=== PATIENT | male | born 1950 | race Caucasian/White ===

== ENCOUNTER 2024-02-09 16:05 | Emergency (ER) | payer MEDICARE, OTHER, SELFPAY ==
[2024-02-09 16:14] VITALS: BP 125/80
--- NOTE | 2024-02-09 17:37 | ED.GENMED ---
History of Present Illness
General
Chief Complaint: Fall
Time Seen by Provider: 02/09/24 17:32
Travel History
Have you had any contact with someone who has COVID-19?: No
Do you have any symptoms of coronavirus? Fever > 100 degrees, chills, cough, shortness of breath, sore throat, loss of taste or smell, muscle aches, or headache?: No
History of Present Illness
History of Present Illness:
73-year-old male with history of A-fib and frequent falls presents to the emergency department for evaluation of a left-sided head injury after mechanical fall. He states he tripped and fell, struck his head against a dresser., Does take baby
aspirin, no anticoagulants. He denies any loss of conscious, vision changes, neck pain, or extremity paresthesias. There is a small laceration to the left parietal scalp that is not actively bleeding
Past History
Past History
ED Past Medical History: Arrthythmia (Atrial fibrillation on low-dose aspirin), CAD, Cancer (Prostate), Hypercholesterolemia, [place], Hypothyroidism, Psychiatric (Anxiety, Depression), Other (Hepatitis C, Colitis, Crohns) and Other (Cardiomyopathy, PE)
ED Past Surgical History: Appendectomy, Urological (prostatectomy) and Other (Vocal cord repair)
Social History
Tobacco: Former smoker
Alcohol: None
Drug: Former user
Personal:
Living: with family
Employment: Retired
Review of Systems
Review of Systems
Allergies reviewed?: Yes
All Other Systems: ROS reviewed and negative except as documented in HPI and ROS
Phy Exam
Physical Exam
Physical Exam:
GEN: Well appearing, NAD, WDWN
HEENT: Subcentimeter superficial laceration to left parietal scalp with no active bleeding, oral mucosa moist, no scleral icterus, no nasal congestion
Cardiac: Regular rate
Lung: No respiratory distress, no tachypnea
MSK: No gross deformity or injuries
Skin: Good color, no pallor or jaundice, no rashes
Neuro: AO x3; CN II-XII grossly intact. BUE strength 5/5 in all [place], sensation intact and symmetric. BLE strength 5/5 in all [place], sensation intact and symmetric
Psych: Calm, cooperative
Course
Orders/Labs/Results
Orders:
Orders
02/09/24 17:34
CT Head W/o Iv Contrast Urgent
Comment:
Reason For Exam: fall, head injury
Vital Signs
Initial and Last Documented VS:
Initial Vital Signs
Temp Pulse Resp BP Pulse Ox
98.9 F 85 14 125/80 96
02/09/24 16:14 02/09/24 16:14 02/09/24 16:14 02/09/24 16:14 02/09/24 16:14
Last Documented Vital Signs
Temp Pulse Resp BP Pulse Ox
98.9 F 58 14 133/82 96
02/09/24 16:14 02/09/24 19:13 02/09/24 16:14 02/09/24 19:13 02/09/24 16:14
MDM/Problems Addressed
MDM/Problems Addressed:
73-year-old male presents after a minor head injury. He does have a history of frequent falls. Scalp wound is quite small and does not require primary closure. CT of the head shows no acute intracranial process.
*Critical Care Note
Total Time (30-74mins, 75-104mins- exclusive of procedures): Not Applicable
ED Attending Note
-
Portions of this chart may have been created with voice recognition software.� Occasional wrong word or��sound alike� substitutions may have occurred due to the inherent limitations of voice recognition software.
Discharge Plan
Departure
Patient Disposition: Home (Routine Discharge)
Date of Disposition: 02/09/24
Time of Disposition: 19:10
Patient with high blood pressure during this ER visit?: No
Discharge Problem:
Laceration of scalp
Instructions: Head Injury in Adults (DC)
Prescriptions:
No Action
atorvastatin 20 MG tablet
20 mg PO DAILY Qty: 0
acetaminophen 325 MG tablet
650 mg PO Q4HPRN PRN (Reason: pain/PEREZ/fever >100.4 ) Qty: 1 0RF
Rx Instructions:
Do not exceed >4000 mg daily
carvedilol 6.25 MG tablet
6.25 mg PO BID
levothyroxine 88 MCG tablet
88 mcg PO DAILY
fluoxetine 40 MG capsule
80 mg PO DAILY
sulfasalazine 500 MG tablet
1,000 mg PO BID
olanzapine 10 MG tablet
10 mg PO HS
aspirin 81 MG tablet,delayed release (DR/EC)
81 mg PO DAILY
loratadine 10 MG tablet
10 mg PO DAILYPRN PRN (Reason: ALLERGIES)
bupropion HCl 150 MG tablet extended release 24 hr
450 mg PO DAILY
Meticam
15 mg PO DAILY
amoxicillin-pot clavulanate 875-125 mg tablet
1 tab PO BID Qty: 14 0RF
azithromycin 250 mg tablet
250 mg PO DAILY 4 Days Qty: 4 0RF
Referrals:
Josee Barnett MD [Family Provider] -
Interventions
Interventions:
*Risk Screen - Suicide Last Done: 02/09/24 16:13
*General Assessment Last Done: 02/09/24 16:13
*Neglect/Abuse Screening Last Done: 02/09/24 16:13
*Nursing Disposition Last Done: 02/09/24 19:13
ED-Musculoskeletal Assessment Last Done: 02/09/24 16:49
ED- Neurological Assessment Last Done: 02/09/24 16:49
ED-Skin Assessment Last Done: 02/09/24 16:49
Discharge Date and Time
Discharge Date/Time: 02/09/24 19:22
Print Language: DANISH
[2024-02-09 18:59] VITALS: BP 133/82
[2024-02-09 19:13] VITALS: BP 133/82
== END 2024-02-09 19:22 | disposition home or self-care (01) ==
LOC: EMR 16:05
PROVIDERS: EMERGENCY PHYSICIAN Emergency Medicine; FAMILY PHYSICIAN Family Medicine
DX: S01.01XA Laceration without foreign body of scalp, initial encounter (principal); W01.190A Fall on same level from slipping, tripping and stumbling with subsequent striking against furniture, initial encounter; I48.91 Unspecified atrial fibrillation; I25.10 Atherosclerotic heart disease of native coronary artery without angina pectoris; E78.00 Pure hypercholesterolemia, unspecified; E03.9 Hypothyroidism, unspecified; F41.9 Anxiety disorder, unspecified; F32.A Depression, unspecified; K52.9 Noninfective gastroenteritis and colitis, unspecified; K50.90 Crohn's disease, unspecified, without complications; I42.9 Cardiomyopathy, unspecified; I25.2 Old myocardial infarction; Z85.9 Personal history of malignant neoplasm, unspecified; Z86.711 Personal history of pulmonary embolism; Z86.19 Personal history of other infectious and parasitic diseases; Z87.891 Personal history of nicotine dependence; R29.6 Repeated falls; Z90.79 Acquired absence of other genital organ(s)
CPT/HCPCS: 99284; 70450

== ENCOUNTER 2024-04-19 15:13 | Outpatient (RCR) | payer MEDICARE, OTHER, SELFPAY | END 2024-04-19 23:59 | disposition home or self-care (01) | LOC: RST 15:13 | PROVIDERS: ATTENDING PHYSICIAN Otolaryngology; FAMILY PHYSICIAN Family Medicine | DX: R49.0 Dysphonia (principal); R13.10 Dysphagia, unspecified | CPT/HCPCS: 92507; 92524 ==

== ENCOUNTER 2024-05-26 15:44 | Outpatient (RCR) | payer MEDICARE, OTHER, SELFPAY | END 2024-05-26 23:59 | disposition home or self-care (01) | LOC: RST 15:44 | PROVIDERS: ATTENDING PHYSICIAN Otolaryngology; FAMILY PHYSICIAN Family Medicine | DX: R49.0 Dysphonia (principal); R13.10 Dysphagia, unspecified | CPT/HCPCS: 92507 ==

== ENCOUNTER 2024-06-09 13:47 | Outpatient (RCR) | payer MEDICARE, OTHER, SELFPAY | END 2024-06-09 16:08 | disposition home or self-care (01) | LOC: RST 13:47 | PROVIDERS: ATTENDING PHYSICIAN Otolaryngology; FAMILY PHYSICIAN Family Medicine | DX: R49.0 Dysphonia (principal); R13.10 Dysphagia, unspecified | CPT/HCPCS: 92507 ==

== ENCOUNTER 2024-06-20 12:31 | Inpatient (IN) | payer MEDICARE, OTHER, SELFPAY ==
[2024-06-20] VITALS (39 sets, daily range): BP systolic 80–131; BP diastolic 50–107; BMI 19.5; BMI 20.6
[2024-06-20] MEDS: TYLENOL 1000 MG PO (08:20)
--- NOTE | 2024-06-20 08:23 | ED.MUSCINJ ---
HPI-Injury
General
Chief Complaint: Fall
Source: patient
Exam Limitations: none
Time Seen by Provider: 06/20/24 08:02
History of Present Illness-Injury
Initial Injury comments:
73-year-old male presents via EMS from home with generalized weakness and a fall. He was found to be incontinent by EMS. Patient denies any significant pain or injury from the fall but he was noted to hit the side of his head. He is not
anticoagulated. No known loss of consciousness. He denies chest pain cough or shortness of breath. He does have history of COPD. No recent nausea or vomiting. No other complaints at this time
Past History
Past History
ED Past Medical History: Arrthythmia (Atrial fibrillation on low-dose aspirin), CAD, Cancer (Prostate), Hypercholesterolemia, [place], Hypothyroidism, Psychiatric (Anxiety, Depression), Other (Hepatitis C, Colitis, Crohns) and Other (Cardiomyopathy, PE)
ED Past Surgical History: Appendectomy, Urological (prostatectomy) and Other (Vocal cord repair)
Social History
Tobacco: Former smoker
Alcohol: None
Drug: Former user
Personal:
Living: with family
Employment: Retired
Phy Exam
Physical Exam
Physical Exam:
General: Unkempt male no acute respiratory distress
HEENT: Normocephalic abrasions that are superficial to the right side of the scalp. Pupils equal round react light small superficial laceration to the outer ear on the right ear.
Heart: Regular rate and rhythm
Lungs: Clear no obvious wheeze
Abdomen is soft nontender nondistended no guarding rebound
Extremities: No cyanosis or edema
Neurologic alert and oriented no facial asymmetry no drift to the upper extremities
Musculoskeletal exam: The spine is nontender
Injury Course
Orders/Labs/Results
Orders:
Orders
06/20/24 08:05
Acetaminophen [Tylenol] 1,000 mg .ROUTE .STK-MED ONE
06/20/24 08:11
0.9% Sodium Chloride 1000 ml [Nss] 1,000 ml IV BOLUS
06/20/24 08:12
CR Chest - 2 Views Urgent
Comment:
Reason For Exam: fever
06/20/24 08:16
Lactic Acid Urgent
06/20/24 08:17
Complete Blood Count/With Diff Urgent
Comprehensive Metabolic Panel Urgent
Lactic Acid Urgent
Urinalysis Reflex To Culture Urgent
Date Specimen was Collected: 06/20/24
Time Specimen was Collected: 08:15
Urine Microscopic Reflex Cult Urgent
Urine Culture Urgent
RADHAMES Source: U
Specimen Description:
Date Specimen was Collected: 06/20/24
Time Specimen was Collected: 08:15
06/20/24 08:19
CT Head W/o Iv Contrast Urgent
Comment:
Reason For Exam: fall
Acetaminophen [Tylenol] 1,000 mg PO NOW STA
06/20/24 08:25
COVID-19 Antigen Urgent
Source: Nasal Swab
Blood Culture Urgent
RADHAMES Source: Blood/Venous
Specimen Description:
06/20/24 09:37
CefTRIAXone [Rocephin] 1,000 mg IV NOW STA
Abnormal Lab Results
06/20/24
08:17
WBC 3.9 L 10^3/uL
(4.8-10.8)
RDW 15.0 H %
(11.5-14.5)
Plt Count 104 L 10^3/uL
(130-400)
Absolute Lymphs (auto) 0.1 L 10^3/uL
(1.2-3.4)
Absolute Monos (auto) 0.0 L 10^3/uL
(0.1-0.6)
Immature Gran % 1.0 H %
(0-0.5)
Neutrophils % 94.4 H %
(42.2-75.2)
Lymphocytes % 3.1 L %
(20.5-51.1)
Monocytes % 1.0 L %
(1.7-9.3)
Sodium 134 L mmol/L
(135-145)
BUN 23 H mg/dl
(9-20)
Glucose 119 H mg/dl
(70-99)
Lactic Acid 2.6 H mmol/L
(0.7-2.0)
AST 66 H U/L
(17-59)
Ur Occult Blood Reflex 2+ A
(Negative)
Leukocyte Esterase Rfl 2+ A
(Negative)
Urine WBC (Reflex) 26-30 A /HPF
(0-5)
Urine Bacteria (Reflex) Moderate A
(Negative)
06/20/24 08:17
06/20/24 08:17
MDM/Problems Addressed
Differential Diagnosis Includes:
Weakness with a fall. Patient found to be febrile here. Question UTI versus COVID versus pneumonia versus electrolyte abnormality. He does appear dry on exam.
Check labs urine culture chest x-ray COVID test CT head secondary to trauma
*Critical Care Note
Total Time (30-74mins, 75-104mins- exclusive of procedures): Not Applicable
Update Note
Update Note:
Workup reveals negative head CT chest x-ray is clear per urine with large white blood cells with bacteria and leukocytes. Suspect UTI. Patient was weak to the point where he fell. Lactic acid is 2.6. Patient was hydrated here with IV fluids
given Tylenol and Rocephin. Will admit to hospital
ED Attending Note
-
Portions of this chart may have been created with voice recognition software.� Occasional wrong word or��sound alike� substitutions may have occurred due to the inherent limitations of voice recognition software.
Discharge Plan
Departure
Patient Disposition: Admit
Date of Disposition: 06/20/24
Time of Disposition: 09:41
Presentation/result/management discussed w/ accepting MD/DO: Hospitalist
Patient with high blood pressure during this ER visit?: No
Discharge Problem:
Fever, Acute UTI
Prescriptions:
No Action
atorvastatin 20 MG tablet
20 mg PO DAILY Qty: 0
acetaminophen 325 MG tablet
650 mg PO Q4HPRN PRN (Reason: pain/PEREZ/fever >100.4 ) Qty: 1 0RF
Rx Instructions:
Do not exceed >4000 mg daily
carvedilol 6.25 MG tablet
6.25 mg PO BID
levothyroxine 88 MCG tablet
88 mcg PO DAILY
fluoxetine 40 MG capsule
80 mg PO DAILY
sulfasalazine 500 MG tablet
1,000 mg PO BID
olanzapine 10 MG tablet
10 mg PO HS
aspirin 81 MG tablet,delayed release (DR/EC)
81 mg PO DAILY
loratadine 10 MG tablet
10 mg PO DAILYPRN PRN (Reason: ALLERGIES)
bupropion HCl 150 MG tablet extended release 24 hr
450 mg PO DAILY
Meticam
15 mg PO DAILY
amoxicillin-pot clavulanate 875-125 mg tablet
1 tab PO BID Qty: 14 0RF
azithromycin 250 mg tablet
250 mg PO DAILY 4 Days Qty: 4 0RF
Referrals:
Josee Barnett MD [Family Provider] -
Interventions
Interventions:
*Risk Screen - Suicide Last Done: 06/20/24 08:08
*General Assessment Last Done: 06/20/24 08:07
*Neglect/Abuse Screening Last Done: 06/20/24 08:08
*ED COVID-19 Vaccine History Last Done: 06/20/24 08:07
ED-Musculoskeletal Assessment Last Done: 06/20/24 08:09
ED- Neurological Assessment Last Done: 06/20/24 08:09
ED-Skin Assessment Last Done: 06/20/24 08:09
Discharge Date and Time
Print Language: [place]
[2024-06-20 08:25] LABS: Urine Albumin Trace (Neg - Trace); Urine Bilirubin Negative (Negative); Urine Character Slightly Cloudy (Clear); Urine Color Yellow; Urine Glucose Negative (Negative); Urine Ketone Negative (Negative); Urine Leukocyte 2+ (Negative); Urine Nitrite Negative (Negative); Urine Occult Blood 2+ (Negative); Urine Specific Gravity 1.005 (<1.030); Urine Urobilinogen Negative (Neg - 1+)
[2024-06-20] MEDS: NSS 1000 IV ×2 (08:25→10:34)
[2024-06-20 08:26] LABS: % Basophils 0.5 % (0-2); % Lymphocytes 3.1 % (20.5-51.1); % Neutrophils 94.4 % (42.2-75.2); Absolute Lymphocytes 0.1 10^3/uL (1.2-3.4); Absolute Neutrophils 3.7 10^3/uL (1.4-6.5); Hematocrit 40.2 % (39.0-52.0); Hemoglobin 13.8 g/dL (13.0-18.0); Mean Corp Hgb Conc. 34.3 g/dL (33.0-37.0); Mean Corpuscular Hgb 29.1 pg (27.0-31.0); Mean Corpuscular Volume 84.6 fL (80.0-94.0); Mean Platelet Volume 9.5 fL (7.4-10.4); Nucleated Red Blood Cells % 0 % (-); Platelet Count 104 10^3/uL (130-400); Red Blood Cell Count 4.75 10^6/uL (4.70-6.10); White Blood Cell Count 3.9 10^3/uL (4.8-10.8)
[2024-06-20 08:34] LABS: Urine Bacteria Moderate (Negative); Urine Red Blood Cell 0-2 /HPF (0-2); Urine Squamous Cell 0-2 /LPF (Few); Urine White Cell 26-30 /HPF (0-5)
[2024-06-20 08:38] LABS: ALT (SGPT) 36 U/L (0-50); AST (SGOT) 66 U/L (17-59); Albumin 3.5 g/dl (3.5-5.0); Alkaline Phosphatase 98 U/L (38-126); Blood Urea Nitrogen 23 mg/dl (9-20); Calcium 8.9 mg/dl (8.4-10.2); Carbon Dioxide 25 mmol/L (22-30); Chloride 101 mmol/L (98-107); Estimated Creatinine Clearance 71 ml/min; Glucose 119 mg/dl (70-99); Potassium 3.5 mmol/L (3.5-5.1); Sodium 134 mmol/L (135-145); Total Bilirubin 0.8 mg/dl (0.2-1.3); Total Protein 6.6 g/dl (6.3-8.2); eGFR > 60.00
[2024-06-20 08:39] LABS: Lactic Acid 2.6 mmol/L (0.7-2.0)
[2024-06-20 09:12] LABS: COVID-19 Antigen Negative (Negative)
[2024-06-20] MEDS: ROCEPHIN 1000 MG IV (09:43)
[2024-06-20] MEDS: LEVOPHED 250 IV (12:38)
--- NOTE | 2024-06-20 12:51 | W.PN.HOSP.TC ---
Today's Communication/Plan
-
IVF
Levophed
empiric abx
ICU with wool presser consult
Assessment / Plan
Assessment / Plan
septic shock
urinary source, fever to 102.2, hypotensive, very weak
UTI
will start Rocephin (first dose given in ER and Vanco for now)
Hx of Prostate Cancer
dx in 2013, post prostate resection, XRT and Lupron)
Chronic neuropathy
goes to neurologist in [facility] (does not remember name) and receives IV infusion
COPD by hx (quit smoking 1989)
Swallowing impairment
Speech consulted, started Pureed diet
recurrent falling/syncope
P: pt received 2 liters NS and remains hypotensive. Levophed ordered and will admit ICU
full code
see dictated note
Anticipated Discharge: > 48 hours
Subjective/Interval History
-
Date of Service: June 20, 2024
Repeated falls past 6 days
Objective Data
-
Labs:
Laboratory Results
06/20/24
08:17
WBC 3.9 L
Hgb 13.8
Hct 40.2
Plt Count 104 L
Sodium 134 L
Potassium 3.5
Chloride 101
Carbon Dioxide 25
BUN 23 H
Creatinine 0.9
Glucose 119 H
Calcium 8.9
Total Bilirubin 0.8
AST 66 H
ALT 36
Alkaline Phosphatase 98
Vital Signs:
Vital Signs
Temp Pulse Resp BP Pulse Ox
99.9 F 72 21 91/57 95
06/20/24 09:46 06/20/24 12:30 06/20/24 12:30 06/20/24 12:30 06/20/24 12:30
Review of Systems
-
History Source: Patient, Family ( in room) and Coordinated Provider (Maria Del Carmen MCFADDEN)
Constitutional: Reports Fever (102.2)
EENT: Reports No Symptoms Reported
Respiratory: Denies No Symptoms
Cardiac: Denies No Symptoms
Genitourinary: Reports Frequency; Denies Dysuria (pt denies) or Flank Pain
Musculoskeletal: Reports Other (muoltiple bruises)
Neuro: Reports Other (syncope)
Physical Exam
-
General: Well Developed, Well Nourished, No Apparent Distress and Fever; Negative Respiratory Distress
HEENT: Normocephalic; Negative Atraumatic (rt side of head with extensive bruising)
Respiratory: Negative Clear to Auscultation, Wheezes, Rales or Rhonchi
Cardiac: Regular Rhythm and S1/S2
GI: Soft, Nontender and Nondistended
Musculoskeletal: No Clubbing, No Cyanosis and No Edema
Neuro: Awake, Alert, Oriented and Other (weak and is speaking softly)
Psych: Calm
[2024-06-20 12:59] LABS: Lactic Acid 1.3 mmol/L (0.7-2.0)
[2024-06-20] MEDS: NSS with KCL 20 MEQ 1000 IV ×2 (13:42→23:12)
[2024-06-20] MEDS: VANCOCIN 300 ML IV (13:42)
[2024-06-20] MEDS: VANCOCIN 300 MG IV (13:42)
--- NOTE | 2024-06-20 13:49 | PHA.VAN.IN ---
Assessment
- Assessment
Maximum Temperature: 102.2
Minimum Temperature: 99.9
Concomitant Antimicrobials: Ceftriaxone
AUC Dosing Plan
- Empiric Dosing
Initial / Loading Dose: 1500mg 06/20
Maintenance Regimen: 750mg Q12H starting 06/21 @0600
Estimated AUC (mcg*h/mL): 520
Estimated Peak (mcg*h/mL): 30
Estimated Trough (mcg/ml): 14.9
Estimated Half Life (H): 10.9
- Monitoring
No levels ordered at this time: Consider levels in next few days
Pharmacokinetics Vancomycin I
- -
Patient Age: 73
Patient Sex: Male
Vancomycin Day #: 1
Indication: Genito-Urinary Tract
Requesting Provider: Jane Abad
Height / Weight:
Height 6 ft 1 in
Actual Weight 67.1 kg
Pertinent Past Medical History: history of prostate cancer
- Vital Signs / Lab Results
Temp Pulse Resp BP Pulse Ox
99.9 F 72 18 98/61 98
06/20/24 09:46 06/20/24 13:00 06/20/24 13:00 06/20/24 13:00 06/20/24 13:03
Lab Results - Hematology
06/20/24
08:17
WBC 3.9 L
Lab Results - Chemistry
06/20/24
08:17
BUN 23 H
Creatinine 0.9
Estimated Creat Clear 71
Albumin 3.5
06/20/24 06/20/24 06/20/24
08:16 08:17 12:32
Lactic Acid Cancelled 2.6 H 1.3
Lab Results - Urine
06/20/24
08:17
Urine Nitrite (Reflex) Negative
Leukocyte Esterase Rfl 2+ A
Urine WBC (Reflex) 26-30 A
Ur Squamous Epith Cells 0-2
Urine Bacteria (Reflex) Moderate A
[2024-06-20] MEDS: TYLENOL 650 MG PO (15:29)
--- NOTE | 2024-06-20 15:36 | CON.INTV ---
Consultation
Consultation Request
Date/Time Consultation Requested: 06/20/2024 - 131
Date/Time Consultation Performed: 06/20/2024 - 1343
Requesting Provider: Dr. Beach
Performing Provider: Dr. Pratt
Reason for Consultation: Shock on vasopressors
Medical History
-
Chief Complaint: Fall at home
History of Present Illness:
73-year-old male with a past medical history of COPD, former tobacco use disorder, Crohn's disease, history of PE, CIDP, swallowing dysfunction, chronic hep C, history of prostate cancer s/p radical prostatectomy, CAD with history of IL, history of
Lyme disease, history of stroke, history of A-fib, colonic polyps and right vocal cord paresis who presents with fall with head strike to right side of scalp. Patient was walking with his walker when he fell, without previous chest pain, shortness
of breath or loss of consciousness. In the ER he was febrile to 102.2 �F, pulse rate 93 bpm, breathing at 16 breaths/min, BP 107/70 and saturating 93% on room air. Labs showed leukopenia to 3.9 (prior WBC 4.1 in 06/2022), Hb 13.8, platelets 104,
serum sodium 134, lactate 2.6, AST elevated at 66, urinalysis with +2 leukocyte esterase and 26�30 urine WBC, and COVID antigen negative. Urine culture + blood cultures collected. CXR shows no acute cardiopulmonary abnormality, and CT head shows
no acute intracranial abnormality. He was started on ceftriaxone in the ER and given IVF with NS 0.9% x 2L. Unfortunately patient remained hypotensive with SBP in the 80s and Levophed was started. Patient admitted to the ICU for further care and
critical care services consulted for additional management/recommendations.
When I saw the patient he was resting in bed in no acute distress on room air breathing comfortably. Currently on Levophed at 2mcg/min with BP 114/88. Heart rate 71 and saturating 95% on room air. He says his blood pressure runs low but he is not
sure the exact measurements. He is taking prednisone for neuropathy, as per patient. He currently denies chest pain, shortness of breath, abdominal pain, nausea, vomiting, back pain, fevers or chills.
Of note patient follows with us in [facility] office with last visit on 01/26/[address] Mercado. Patient follows with us for COPD and chronic cough and frequent throat clearing. He had followed with ENT and has completed speech therapy. He had no
improvement with dual bronchodilator therapy hence this was stopped. Pulmonary rehab was recommended but he declined. He also follows with cardiology, Dr. Patel. Last full PFT performed in January 2021 showing complete reversal of moderate
obstructive lung defect, marked improvement of small lung conway, mild restrictive lung defect and moderately reduced gas exchange capacity which is mild when accounting for alveolar volume involving gas exchange (DLco: 48%; DLco/VA: 68%).
PMHx: Crohn's disease, history of PEG tube, COPD, former tobacco use, history of PE (provoked � 06/2018), CIDP, anxiety, swallowing dysfunction, chronic hep C, history of prostate cancer s/p radical prostatectomy, CAD with history of IL, aortic
atherosclerosis, history of Lyme disease, history of stroke, paroxysmal A-fib, history of Takotsubo's cardiomyopathy, depression, history of colonic polyps, anal fissure, diverticulosis, right vocal cord paresis, history of ESBL E. coli
UTI/bacteremia (2018)
PSHx: Vasectomy, left hernia repair, radical prostatectomy, appendectomy, left medial meniscus repair, fissurectomy, history of RILEY with DCCV (07/2019), PEG tube placement (08/2019)
Past Medical History
Past Medical History: Other (Above as per HPI)
Past Surgical History: Other (Above as per HPI)
Social History
Tobacco: Former Smoker (Quit in 1989)
Alcohol: None
Drug: None
Family History
Family History: Reviewed & Not Pertinent
Allergies / Home Medications
Allergies
Allergy/AdvReac Type Severity Reaction Status Date / Time
No Known Allergies Allergy Verified 11/06/22 19:43
Home Medications
�Medication �Instructions �Recorded �Confirmed �Last Taken �Type
atorvastatin 20 mg tablet 20 mg PO DAILY High Cholesterol ##0 02/05/20 06/20/24 06/19/24 History
acetaminophen 325 mg tablet 650 mg (2 x 325 mg) PO Q4HPRN PRN 02/06/20 06/20/24 09/23/21 Rx
pain/PEREZ/fever >100.4 #1 tab
bupropion HCl 150 mg 24 hr tablet, 150 mg PO DAILY Mental 09/24/21 06/20/24 06/19/24 History
extended release Health/Anxiety
fluoxetine 40 mg capsule 80 mg PO DAILY Mental 09/24/21 06/20/24 06/19/24 History
Health/Anxiety
levothyroxine 88 mcg tablet 88 mcg PO DAILY Thyroid 09/24/21 06/20/24 06/19/24 History
sulfasalazine 500 mg tablet 1,000 mg PO BID Gastrointestinal 09/24/21 06/20/24 06/19/24 History
Issue
alendronate 70 mg tablet 70 mg PO DIALLO OSTEOPOROSIS 06/20/24 06/20/24 06/19/24 History
aripiprazole 10 mg tablet 10 mg PO DAILY Mental 06/20/24 06/20/24 06/19/24 History
Health/Anxiety
bupropion HCl 300 mg 24 hr tablet, 300 mg PO DAILY Mental 06/20/24 06/20/24 06/19/24 History
extended release Health/Anxiety
calcium citrate 315 mg 2 tab PO DAILY Supplement 06/20/24 06/20/24 06/19/24 History
calcium-vitamin D3 6.25 mcg (250
unit) tablet (Citracal + Vitamin D
Maximum)
carvedilol 3.125 mg tablet 3.125 mg PO BID Heart 06/20/24 06/20/24 06/19/24 History
Disease/Condition
diphenhydramine HCl 25 mg capsule 25 mg PO HSPRN PRN fever 06/20/24 06/20/24 Unknown History
(Benadryl)
immune glob G 20 gram/200 ml IV Q3W Gastrointestinal Issue 08/06/20/24 06/05/24 History
mL(10%)-gly-IgA ave 46 mcg/mL
injection soln (Gamunex-C)
inulin-sorbitol 2 gram chewable 2 tab PO BID Supplement 06/20/24 06/20/24 06/19/24 History
tablet
magnesium oxide 400 mg (241.3 mg 400 mg PO DAILY Electrolyte 06/20/24 06/20/24 06/19/24 History
magnesium) tablet Repletion
meloxicam 15 mg tablet 15 mg PO DAILY Pain 06/20/24 06/20/24 06/19/24 History
prednisone 10 mg tablet 10 mg PO DAILY Gastrointestinal 06/20/24 06/20/24 06/19/24 History
Issue
Review of Systems
-
History Source: Patient
All other systems: Negative unless noted
Vitals / Labs / Diagnostic Testing
Vital Signs
Temp Pulse Resp BP Pulse Ox
98.1 F 72 18 98/61 94
06/20/24 13:25 06/20/24 13:00 06/20/24 13:00 06/20/24 13:00 06/20/24 14:41
Lab Data
06/20/24 08:17
06/20/24 08:17
Diagnostic Testing:
Physical Exam
-
HEENT: Anicteric and Other (Right temporal abrasion)
Cardiovascular: S1/S2 and Peripheral Edema (Negative)
Respiratory: Wheeze (Negative), Rales (Left base) and Rhonchi (Negative)
GI: Soft, Non Distended, Non Tender and Normal Bowel Sounds
Neurology: Awake, Alert and Tremors (Negative)
Skin: Warm and Dry
General: Respiratory Distress (Negative), Comfortable, Chills (Negative) and Sweats (Negative)
Assessment
-
Assessment: 73-year-old male with a past medical history of COPD, former tobacco use disorder, Crohn's disease, history of PE, CIDP, swallowing dysfunction, chronic hep C, history of prostate cancer s/p radical prostatectomy, CAD with history of
IL, history of Lyme disease, history of stroke, history of A-fib, colonic polyps and right vocal cord paresis who presents with fall with head strike to right side of scalp. Patient was walking with his walker when he fell, without previous chest
pain, shortness of breath or loss of consciousness. In the ER he was febrile to 102.2 �F, pulse rate 93 bpm, breathing at 16 breaths/min, BP 107/70 and saturating 93% on room air. Labs showed leukopenia to 3.9 (prior WBC 4.1 in 06/2022), Hb 13.8,
platelets 104, serum sodium 134, lactate 2.6, AST elevated at 66, urinalysis with +2 leukocyte esterase and 26�30 urine WBC, and COVID antigen negative. Urine culture + blood cultures collected. CXR shows no acute cardiopulmonary abnormality, and
CT head shows no acute intracranial abnormality. He was started on ceftriaxone in the ER and given IVF with NS 0.9% x 2L. Unfortunately patient remained hypotensive with SBP in the 80s and Levophed was started. Patient admitted to the ICU for
further care and critical care services consulted for additional management/recommendations.
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
of IL, aortic atherosclerosis, history of Lyme disease, history of stroke, paroxysmal A-fib, history of Takotsubo's cardiomyopathy, depression, history of colonic polyps, anal fissure, diverticulosis, right vocal cord paresis
Impression:
#Shock likely due to sepsis from UTI with possible adrenal insufficiency given chronic prednisone use
#Thrombocytopenia + leukopenia
#Abnormal urinalysis with +2 leukocyte esterase suspicious for UTI
#Lactic acidosis � now normalized
#Hyponatremia
#Transaminitis with elevated AST to 66
#Hx of moderate�severe COPD � not currently in an acute exacerbation
#Mild restrictive lung defect (post-BD FVC: 70% predicted/3.1 L via spirometry from 01/26/2023)
#History of ESBL E. coli bacteremia + UTI
#Chronic prednisone use (10mg daily - takes for neuropathy, as per patient)
Plan:
- Continue vasopressors with Levophed titrating to MAP >65
- Continue with antibiotics, but change to meropenem given his history of ESBL-E. coli from 2019
- Stop ceftriaxone; no current indication for IV vancomycin --> DC this too
- Follow-up urine culture + blood culture
- Continue with prednisone and check random cortisol level (although may be expectedly low given chronic prednisone use)
- No longer need to trend lactate given it is <2 mmol/L
- Hold home antihypertensives for now until BP has normalized for at least 24 hours
- Fall precautions
- PT/OT
- trend LFTs
- Trend Hb and plt count and transfuse if needed to keep Hb>7, plt>20k
- Maintain SpO2 >88-94%
- Replete electrolytes with K>4, Mg>2
- Maintain euglycemia with goal BG 140-180
- prn nebulized bronchodilators
- Incentive spirometer encouraged
- DVT ppx: HSQ --> change to q8hr
Critical care statement: A total of 40 minutes of critical care time was provided for this patient today. This includes management of unstable vital signs, evaluation of the patient at bedside, reviewing the patient's pertinent medical records
including radiographs, microbiology, laboratory evaluations, and discussion with primary team, consultants, pharmacy, nutrition, physical therapy, case management, charge nurse, critical care nursing, and respiratory therapy.
Data:
CXR 06/20/2024: No radiographic evidence of acute cardiopulmonary abnormality.
CT Head 06/20/2024: No acute intracranial abnormality
--- NOTE | 2024-06-20 15:47 | PTCARENOTE ---
VS's downloaded from previous shift [id number].
[2024-06-20 16:24] LABS: INR 1.24; PT 15.4 Sec (11.4-14.6)
[2024-06-20 16:25] LABS: APTT 31.1 Sec (23.4-35.0)
--- NOTE | 2024-06-20 16:28 | PTCARENOTE ---
Complete assessment done and documented. Pt presently oriented x3, but is forgetful. +PERRL. CUMMINGS bilat. HR SR with some sinus arrhythmia noted. Pt received on levophed 3 mcg/min, which is presently weaned to 2 mcg/min, keeping MAP>65. Pt afeb, 98.4
ax. Pt on R/A, lobes diminished at bases, A6vbc=34%. + hypoactive BSs, nontender. Pt incontinent of yellow urine, luzma care done, #25 condom cath placed. Pt seen by Dr Pratt in to see and assess pt. Swallowing eval done, pt cleared for thin liqs,
sm cup, without straw. Pt does not have his dentures with him, soft diet ordered. R hand prehospital int d/c'd and new 20 R hand int placed. PT/PTT drawn and sent to lab. Call nathan at pt's side, pt turned and made comfortable.
--- NOTE | 2024-06-20 16:53 | PTOTSP ---
Acute Care Evaluation
Pt currently presents with clinical symptoms of mild oral dysphagia and at least mild to moderate pharyngoesophageal dysphagia characterized by prolonged mastication and bolus formation, difficulty with swallow initiations, inadequate airway
protection as evidenced by wet vocal quality, throat clearing, and weak coughing more with liquids than with solids, as well as clinical symptoms of globus sensation with solids.
Recommendations:
- Upgrade pt's diet to SOFT BITE SIZED SOLIDS and continue with REGULAR THIN LIQUIDS with SMALL SINGLE CUP SIPS ONLY
- STRICT ASPIRATION PRECAUTIONS: Pt must be fully awake, alert, and upright for ALL PO intake; small bites; small, single sips via cup sip only; NO STRAWS; distant supervision during PO intake. If pt displays any consistent respiratory distress with
PO intake, please d/c PO intake and make pt NPO.
- Pt is at a LOW threshold to be made NPO at this time.
- FACING SLITTER to f/u to ensure pt is safely consuming the currently recommended diet consistencies and to determine whether or not he would benefit from an updated video fluoroscopic swallow study.
--- NOTE | 2024-06-20 18:26 | PTCARENOTE ---
Levophed presently weaned to off, BP 108/67. Pt tolerated his puree dinner well, eating 95%. Pt's to room and updated.
[2024-06-20 18:52] LABS: Magnesium 1.7 mg/dl (1.6-2.3); Phosphorus 1.7 mg/dl (2.5-4.5)
[2024-06-20] MEDS: STERILE WATER FOR INJECTION 10 ML IV (19:55)
[2024-06-20] MEDS: MERREM 500 MG IV (19:55)
[2024-06-20] MEDS: AZULFIDINE 1000 MG PO (19:56)
[2024-06-20] MEDS: COREG PO (20:01)
--- NOTE | 2024-06-20 21:01 | PTCARENOTE ---
Handoff report received from off going RN. Dual RN skin check completed. Patient received on NS w/20K at 100ml/hr. The patient is AAOx3 and able to make his needs known. Plan of care for the shift reviewed with the patient. Pt's controlled
Afib/sinus arrhythmia on the monitor with HR in the 80s. Palpable pulse. Temp 98.2 F. Diminished breath sounds throughout. SpO2 at 96% on room air. Audible bowel sounds. The patient had a moderate pasty BM. Patient cleansed. Calazime applied.
Condom catheter in place and draining yellow urine. Scheduled medications administered with applesauce. Gave patient 5 spoons of water. The patient had a bout of coughing post water administration. Pt suctioned for thick and stephens sputum. Mouth care
and denture care provided. Suction let at the bedside for the patient. Linens changed. Scattered bruises throughout. The patient turns and repositions himself. Safety measures maintained. Bed alarm in use. Call nathan and personal belongings are
within reach.
[2024-06-20] MEDS: HEPARIN 5000 UNITS SC (23:11)
[2024-06-21] VITALS (19 sets, daily range): BP systolic 99–133; BP diastolic 62–102; PULSE 85–95; O2SAT 96–97; BMI 21.0
--- NOTE | 2024-06-21 00:36 | PTCARENOTE ---
Patient reassessed. Remains AAOx3. PT turns and repositions himself. No changes from the previous assessment.
[2024-06-21] MEDS: MERREM 500 MG IV ×4 (01:47→21:15)
[2024-06-21] MEDS: STERILE WATER FOR INJECTION 10 ML IV ×4 (01:47→21:14)
[2024-06-21 05:03] LABS: Hematocrit 35.3 % (39.0-52.0); Hemoglobin 12.2 g/dL (13.0-18.0); Mean Corp Hgb Conc. 34.6 g/dL (33.0-37.0); Mean Corpuscular Hgb 29.4 pg (27.0-31.0); Mean Corpuscular Volume 85.1 fL (80.0-94.0); Mean Platelet Volume 9.8 fL (7.4-10.4); Platelet Count 104 10^3/uL (130-400); Red Blood Cell Count 4.15 10^6/uL (4.70-6.10); Red Cell Dist. Width 15.4 % (11.5-14.5); White Blood Cell Count 6.4 10^3/uL (4.8-10.8)
--- NOTE | 2024-06-21 05:20 | PTCARENOTE ---
Patient reassessed. Incontinent of pasty BM. Patient cleansed with CHG wipes. Pads changed. Pt's left AC IV infiltrated. Site mildly edematous. IVF removed and warm compress administered. Left arm elevated on pillows. Attempted at placing IV x2
without success. IV team paged and made aware. Labs drawn and sent. Bed alarm remain in used. Call nathan is within reach.
[2024-06-21 05:23] LABS: Blood Urea Nitrogen 16 mg/dl (9-20); Calcium 8.1 mg/dl (8.4-10.2); Carbon Dioxide 23 mmol/L (22-30); Chloride 109 mmol/L (98-107); Estimated Creatinine Clearance 94 ml/min; Glucose 92 mg/dl (70-99); Potassium 4.3 mmol/L (3.5-5.1); Sodium 136 mmol/L (135-145); eGFR > 60.00
[2024-06-21] MEDS: SODIUM PHOSPHATE 255 MEQ IV (05:58)
[2024-06-21] MEDS: SYNTHROID 88 MCG PO (05:58)
[2024-06-21] MEDS: TYLENOL 650 MG PO (06:02)
[2024-06-21] MEDS: AZULFIDINE 1000 MG PO ×2 (07:49→21:14)
[2024-06-21] MEDS: PROZAC 80 MG PO (07:49)
[2024-06-21] MEDS: WELLBUTRIN XL (24 hour extended release) 300 MG PO (07:50)
[2024-06-21] MEDS: WELLBUTRIN XL (24 hour extended release) 150 MG PO (07:50)
[2024-06-21] MEDS: MAGNESIUM OXIDE 500 MG PO (07:50)
[2024-06-21] MEDS: COREG 3.125 MG PO ×2 (07:50→21:12)
[2024-06-21] MEDS: LIPITOR 20 MG PO (07:51)
[2024-06-21] MEDS: DELTASONE 10 MG PO (07:51)
[2024-06-21] MEDS: OSCAL 500 + D 1000 MG PO (07:51)
[2024-06-21] MEDS: HEPARIN 5000 UNITS SC (07:54)
--- NOTE | 2024-06-21 08:00 | PTCARENOTE ---
Assumed plan of care. Pt rec'd A&Ox3. Pleasant. Flat affect. No c/o pain or SOB. CUMMINGS's. Follows commands. Takes po meds whole in applesauce. S1 S2 irregular w/ sinus arrhythmia on monitor. Weak PP. No edema. On R/A...sats 95%. Lungs
clear but diminished in bases. Encouraged to cough and deep breath. Abdomen round...+BS. #25 CC draining yellow urine w/ sediment. Skin pale in color...intact sacral foam...see wound interventions. 20P LFA w/ IVF's infusing. 20P RH w/ rider
infusing. VS documented. Call nathan within reach. Will continue to monitor.
--- NOTE | 2024-06-21 08:18 | W.PN.INTV ---
Today's Communication / Plan
Recommendations
Up OOB as tolerated
prn nebulized bronchodilators � patient not currently bronchospastic
Abx (lexx) for UTI + bacteremia
Follow-up UCX + BCx sensitivities
Patient stable for downgrade out of ICU to telemetry. Geothermal Technician/Pulmonary service will now sign off. Please reconsult if there are any additional questions/concerns, or if patient's respiratory status deteriorates.
Assessment
-
Assessment: 73-year-old male with a past medical history of COPD, former tobacco use disorder, Crohn's disease, history of PE, CIDP, swallowing dysfunction, chronic hep C, history of prostate cancer s/p radical prostatectomy, CAD with history of
VT, history of Lyme disease, history of stroke, history of A-fib, colonic polyps and right vocal cord paresis who presents with fall with head strike to right side of scalp. Patient was walking with his walker when he fell, without previous chest
pain, shortness of breath or loss of consciousness. In the ER he was febrile to 102.2 �F, pulse rate 93 bpm, breathing at 16 breaths/min, BP 107/70 and saturating 93% on room air. Labs showed leukopenia to 3.9 (prior WBC 4.1 in 06/2022), Hb 13.8,
platelets 104, serum sodium 134, lactate 2.6, AST elevated at 66, urinalysis with +2 leukocyte esterase and 26�30 urine WBC, and COVID antigen negative. Urine culture + blood cultures collected. CXR shows no acute cardiopulmonary abnormality, and
CT head shows no acute intracranial abnormality. He was started on ceftriaxone in the ER and given IVF with NS 0.9% x 2L. Unfortunately patient remained hypotensive with SBP in the 80s and Levophed was started. Patient admitted to the ICU for
further care and critical care services consulted for additional management/recommendations.
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
of VT, aortic atherosclerosis, history of Lyme disease, history of stroke, paroxysmal A-fib, history of Takotsubo's cardiomyopathy, depression, history of colonic polyps, anal fissure, diverticulosis, right vocal cord paresis
Impression:
#Shock likely due to sepsis from UTI - shock state resolved
#Thrombocytopenia + leukopenia - WBC now normalized
#UTI due to E. coli
#E. coli bacteremia due to UTI
#Lactic acidosis � now normalized
#Hyponatremia - now normalized
#Transaminitis with elevated AST to 66
#Hx of moderate�severe COPD � not currently in an acute exacerbation
#Mild restrictive lung defect (post-BD FVC: 70% predicted/3.1 L via spirometry from 01/26/2023)
#History of ESBL E. coli bacteremia + UTI
#Chronic prednisone use (10mg daily - takes for neuropathy, as per patient)
Plan:
- Patient hemodynamically stable and remains off vasopressors since yesterday at 10 AM
- MAP >65
- Continue with antibiotics with meropenem (started 06/20) given his history of ESBL-E. coli from 2018
- s/p ceftriaxone x1 dose and s/p IV vanco x1 dose
- Follow-up urine culture + blood culture sensitivities (both growing E. coli)
- Continue with prednisone; random cortisol level 58 thus ruling out adrenal insufficiency
- No longer need to trend lactate given it is <2 mmol/L
- Okay to resume home antihypertensives
- Fall precautions
- PT/OT
- trend LFTs
- Trend Hb and plt count and transfuse if needed to keep Hb>7, plt>20k
- Maintain SpO2 >88-94%
- Replete electrolytes with K>4, Mg>2
- Maintain euglycemia with goal BG 140-180
- prn nebulized bronchodilators � not currently bronchospastic
- Incentive spirometer encouraged
- DVT ppx: Change HSQ to LMWH
Outpatient follow-up will be arranged with [facility] office with Dr. Mercado as last office visit in December 2022.
Patient stable for downgrade out of ICU to telemetry. Geothermal Technician/Pulmonary service will now sign off. Thank you for allowing us to be involved in the care of this patient. Please reconsult if there are any additional questions/concerns, or if
patient's respiratory status deteriorates.
Total time spent today was 55 minutes for this encounter. Time includes reviewing laboratory test/imaging results, reviewing pertinent medical records, obtaining and reviewing medical history, performing an appropriate exam, ordering medications,
tests and procedures. Time also includes documentation of this encounter, coordinating patient care and communicating with other healthcare professionals. Total time does not include separately billed tests performed on this date of service.
Data:
CXR 06/20/2024: No radiographic evidence of acute cardiopulmonary abnormality.
CT Head 06/20/2024: No acute intracranial abnormality
Subjective Dataa
Subjective Data
Date of Service:
Date of Service: June 21, 2024
Chief Complaint: Geothermal Technician Follow Up
Subjective:
Patient seen and evaluated this morning. No acute events reported overnight. BP 114/81, heart rate 78, saturating 97% on RA. Afebrile overnight. Off Levophed since yesterday at 10 AM. He did not sleep well overnight and would like something to
help him sleep tonight. He denies CP, PEREZ, SOB, abdominal pain, nausea, vomiting, fevers or chills.
Review of Systems
General: Other (Negative unless mentioned above)
Objective Data
Data Reviewed
Vital Signs / I&O / Oxygen:
Vital Signs
Temp Pulse Resp BP Pulse Ox
97.7 F 88 21 113/85 96
06/21/24 05:00 06/21/24 07:50 06/21/24 07:45 06/21/24 07:50 06/21/24 07:45
Intake and Output
06/20/24 06/21/24 06/22/24
06:59 06:59 06:59
Intake Total 2367.6 / 2367.6
Output Total 2400 / 2400
Balance -32.4 / -32.4
SaO2 96
Physical Exam
General: Respiratory Distress (negative) and Comfortable
HEENT: Normocephalic and Anicteric
Cardiovascular: S1-S2 and Peripheral Edema (negative)
Respiratory: Clear, Wheeze (negative), Crackles (negative), Rhonchi (negative) and Accessory Resp Muscle Use (negative)
GI: Soft, Non Distended, Non Tender and Normal Bowel Sounds
Neurology: Awake, Alert and Tremors (negative)
Skin: Warm, Dry, Cyanosis (negative) and Jaundice (negative)
Labs/Micro/Reports
Lab Data
06/21/24 04:51
06/21/24 04:51
Laboratory Results
06/20/24
15:59
PT 15.4 H
INR 1.24
APTT 31.1
Microbiology
06/20/24 08:17 Urine Urine Culture - Preliminary
Escherichia coli
06/20/24 08:25 Blood/Venous Blood Culture - Preliminary
Positive culture in progress
06/20/24 08:25 Blood/Venous Gram Stain - Preliminary
[2024-06-21] MEDS: ABILIFY 10 MG PO (08:55)
--- NOTE | 2024-06-21 09:59 | PTCARENOTE ---
Spoke w/ about plan of care. All questions answered. Probable transfer out of ICU.
--- NOTE | 2024-06-21 10:13 | PTCARENOTE ---
Updated pt's dtr on telephone.
--- NOTE | 2024-06-21 10:37 | W.PN.HOSP.TC ---
Today's Communication/Plan
-
transfer tele
Assessment / Plan
Assessment / Plan
septic shock
urinary source, fever to 102.2, hypotensive, very weak on admission, significantly improved since then. Resolved
Lactic Acidosis resolved 2.6-->1.3
UTI
changed over to Meropenem with hx of ESBL
Blood Cx pos, identification pending
Hx of Prostate Cancer
dx in 2013, post prostate resection, XRT and Lupron)
Chronic neuropathy
goes to neurologist in [facility] (does not remember name) and receives IV infusion
COPD by hx (quit smoking 1989)
Swallowing impairment
Speech consulted, started Pureed diet. Will continue current diet, advance to soft bite sized solids with reg thin liquids over next 24 hrs if continues to improve
recurrent falling/syncope
P: pt received 2 liters NS in ER and remained hypotensive. Levophed ordered and was admitted to ICU. BP better, off Levo, now 116/82
will transfer to tele
full code
Anticipated Discharge: > 48 hours
Subjective/Interval History
-
Date of Service: June 21, 2024
Looks remarkably better since admission, off pressors
Objective Data
-
Labs:
Laboratory Results
06/21/24
04:51
WBC 6.4
Hgb 12.2 L
Hct 35.3 L
Plt Count 104 L
Sodium 136
Potassium 4.3
Chloride 109 H
Carbon Dioxide 23
BUN 16
Creatinine 0.7
Glucose 92
Calcium 8.1 L
Vital Signs:
Vital Signs
Temp Pulse Resp BP Pulse Ox
98.6 F 76 15 116/82 97
06/21/24 08:00 06/21/24 09:45 06/21/24 09:45 06/21/24 09:00 06/21/24 09:45
I&O
06/20/24 06/21/24 06/22/24
06:59 06:59 06:59
Intake Total 2367.6 / 2367.6 731.1 / 731.1
Output Total 2400 / 2400
Balance -32.4 / -32.4 731.1 / 731.1
Review of Systems
-
History Source: Patient, Family ( in room) and Coordinated Provider (Maria Del Carmen MCFADDEN)
Constitutional: Reports Fever (102.2 on admission, none past 24 hrs)
EENT: Reports No Symptoms Reported
Respiratory: Denies No Symptoms
Cardiac: Denies No Symptoms
Genitourinary: Reports Frequency; Denies Dysuria (pt denies) or Flank Pain
Musculoskeletal: Reports Other (muoltiple bruises)
Neuro: Reports Other (syncope)
Physical Exam
-
General: Well Developed, Well Nourished and No Apparent Distress; Negative Respiratory Distress
HEENT: Normocephalic; Negative Atraumatic (rt side of head with extensive bruising)
Respiratory: Clear to Auscultation (moving air better, taking a deeper breath, lungs now sound clear); Negative Wheezes, Rales or Rhonchi
Cardiac: Regular Rhythm and S1/S2
GI: Soft, Nontender and Nondistended
Musculoskeletal: No Clubbing, No Cyanosis and No Edema
Neuro: Awake, Alert, Oriented and Other (voice is stronger, muc more alert)
Psych: Calm
[2024-06-21] MEDS: NSS with KCL 20 MEQ IV (10:47)
--- NOTE | 2024-06-21 11:50 | CM ---
CM reviewed medical records. CM met with patient in room. Patient confirmed demographics. Patient lives with and daughter. Patient is currently a patient of [facility] for Gamunex infusion q 3 weeks via PIV. stated that his next
dose would be 06/25. Patient has been to [facility] in the past. Patient is active with his PCP. Patient uses [facility] for medication services.
PLAN: Pending PT evaluation, home with infusion services.
[2024-06-21 12:30] LABS: Magnesium 2.1 mg/dl (1.6-2.3); Phosphorus 2.6 mg/dl (2.5-4.5)
--- NOTE | 2024-06-21 12:34 | WOUNDNOTE ---
R SIDE OF FACE AND NECK
--- NOTE | 2024-06-21 12:35 | WOUNDNOTE ---
MID LOWER BACK
--- NOTE | 2024-06-21 12:35 | WOUNDNOTE ---
SACRUM AND LOWER BACK
--- NOTE | 2024-06-21 12:36 | WOUNDNOTE ---
R GREAT TOE MEDIAL
--- NOTE | 2024-06-21 12:36 | WOUNDNOTE ---
R GREAT TOE MEDIAL AFTER CLEANING
--- NOTE | 2024-06-21 12:37 | WOUNDNOTE ---
WON RN note: Patient admitted with septic shock, UTI.
See H&P for complete history. Lives with and daughter patient states.
PMH: Memory loss, ambulatory dysfunction,frequent falls, A fib,CHF,NY,Crohn's disease, Prostate cancer, Hep C.
Wound Location and type/assessment: Patient admitted with: multiple dried abrasions from fall at home. R scalp and side of head with dried scabs/abrasions. Small skin tears on both anterior arms, silicone foams in use. Middle of back with shallow
open ulcer, pink base from fall and bruising on sacrum. Knees with intact scabs. Heels and L great toe blanchable pink. R medial great toe scab/abrasion fell off when cleaning, revealing intact skin underneath.
Appetite: Poor, dietary on consult. Agreeable to ensure supplements.
Pressure redistribution devices in place: On air mattress, can turn self. Can use Accumax with turning schedule.
Plan: Silicone foam changed on mid back, sacral silicone foam intact. All other scabs open to air.
Updated care plan and will sign off unless needed.
Note to case management of equipment requested for discharge: None.
--- NOTE | 2024-06-21 13:05 | PTCARENOTE ---
Report called to Ernst MCFADDEN on 2nd floor. Pt to transfer to Room 2132.
--- NOTE | 2024-06-21 13:51 | CM ---
CM was updated by bedside RN that patient will need placement. CM spoke with patient's daughter who is agreeable to [facility]. CM confirmed that patient is due for his Gamunex on Thursday or Thursday of next week. CM advised family that this may be a
barrier to placement. Referral sent via [facility].
Patient's geospatial technologist is Haleigh canlaes [facility] [phone].
--- NOTE | 2024-06-21 15:00 | PTCARENOTE ---
Pt received as transfer from ICU. AAOx3. Slow to respond at times. Bed alarm in place. Pt instructed to use call nathan for assistance with getting up. Glasses and dentures at bedside. NSR/Sinus Arrhythmia on quality assurance monitor chassis. HRs 80s-90s. SaO2 100% on
room air. VSS. Pt resting in bed, call nathan at bedside. Assessment documented.
[2024-06-21] MEDS: LOVENOX 40 MG SC (17:45)
[2024-06-21] MEDS: MELATONIN 10 MG PO (22:14)
[2024-06-22] MEDS: STERILE WATER FOR INJECTION 10 ML IV ×4 (02:00→20:34)
[2024-06-22] MEDS: MERREM 500 MG IV ×4 (02:00→20:34)
--- NOTE | 2024-06-22 03:09 | DOWNTIME ---
There was a [employer] Client Supervisor Rides Downtime on 06/22/2024 from 0100 to 06/22/2024 at 0252. Downtime documentation of patient's care, including medication administrations, has been reconciled in the electronic record per guidelines. Refer to the
patient's paper chart under the miscellaneous tab to see printed paper medication records and downtime forms.
[2024-06-22 03:18] VITALS: BP 126/79
[2024-06-22] MEDS: SYNTHROID 88 MCG PO (05:28)
[2024-06-22 06:00] VITALS: BMI 21.7
[2024-06-22 07:35] VITALS: BP 149/87
--- NOTE | 2024-06-22 07:58 | W.PN.HOSP.TC ---
Today's Communication/Plan
-
continue current Tx pending Bact sens
Assessment / Plan
Assessment / Plan
septic shock
urinary source, fever to 102.2, hypotensive, very weak on admission, significantly improved since then. Resolved
Lactic Acidosis resolved 2.6-->1.3
Currently good BP 126/79
pt received 2 liters NS in ER and remained hypotensive. Levophed ordered and was admitted to ICU. BP better, off Levo,
was transferred to tele
WBC 3.9-->6.4-->p
UTI
changed over to Meropenem with hx of ESBL
Blood Cx pos, E.Coli, sens pending
Hx of Prostate Cancer
dx in 2013, post prostate resection, XRT and Lupron)
Chronic neuropathy (CIDP)
goes to neurologist in [facility] (does not remember name) and receives IV infusion q3wks
COPD by hx (quit smoking 1989)
Past hx of cardiomyopathy (Takotsubo CM) - resolved
06/2019 EF noted to be 25%, Echo of 12/2020 demonstrated EF 55-60%
Crohn's
on chronic Sulfasalazine and Prednisone 10 mg (used for both this and neuropathy)
Swallowing impairment
Speech consulted, started Pureed diet. Will continue current diet, advance to soft bite sized solids with reg thin liquids over next 24 hrs if continues to improve
recurrent falling/syncope
pt does fall, felt to be related to his CIDP, but as per dgt had been worsening over several days prior to this admission
P:await E. Coli sens
continue current abx pending sensitivities
extensive review with gaviota Alonzo, by phone this morning (>25 minutes)
full code
Anticipated Discharge: > 48 hours
Subjective/Interval History
-
Date of Service: June 22, 2024
Much more alert, though he does not believe he is back to his baseline status
Objective Data
-
Labs:
Laboratory Results
06/22/24
06:00
WBC Pending
Hgb Pending
Hct Pending
Plt Count Pending
Sodium Pending
Potassium Pending
Chloride Pending
Carbon Dioxide Pending
BUN Pending
Creatinine Pending
Glucose Pending
Calcium Pending
Total Bilirubin Pending
AST Pending
ALT Pending
Alkaline Phosphatase Pending
Vital Signs:
Vital Signs
Temp Pulse Resp BP Pulse Ox
98.1 F 99 16 126/79 97
06/22/24 03:18 06/22/24 03:18 06/22/24 03:18 06/22/24 03:18 06/22/24 03:18
I&O
06/21/24 06/22/24 06/23/24
06:59 06:59 06:59
Intake Total 2367.6 / 2367.6 1451.1 / 1451.1
Output Total 2400 / 2400 1725 / 1725
Balance -32.4 / -32.4 -273.9 / -273.9
Review of Systems
-
History Source: Patient, Family ( in room) and Coordinated Provider (Maria Del Carmen MCFADDEN)
Constitutional: Reports Fever (102.2 on admission, none since 06/20 08:05)
EENT: Reports No Symptoms Reported
Respiratory: Denies No Symptoms
Cardiac: Denies No Symptoms
Genitourinary: Reports Frequency (prior to admission); Denies Dysuria (pt denies) or Flank Pain
Musculoskeletal: Reports Other (muoltiple bruises)
Neuro: Reports Other (syncope)
Physical Exam
-
General: Well Developed, Well Nourished and No Apparent Distress; Negative Respiratory Distress
HEENT: Normocephalic; Negative Atraumatic (rt side of head with extensive bruising that is fading)
Respiratory: Clear to Auscultation (moving air better, taking a deeper breath, lungs now sound clear); Negative Wheezes, Rales or Rhonchi
Cardiac: Regular Rhythm and S1/S2
GI: Soft, Nontender and Nondistended
Musculoskeletal: No Clubbing, No Cyanosis and No Edema
Neuro: Awake, Alert, Oriented and Other (voice is stronger, muc more alert)
Psych: Calm
[2024-06-22] MEDS: ABILIFY 10 MG PO (08:44)
[2024-06-22] MEDS: COREG 3.125 MG PO ×2 (08:44→20:39)
[2024-06-22] MEDS: WELLBUTRIN XL (24 hour extended release) 150 MG PO (08:44)
[2024-06-22] MEDS: MAGNESIUM OXIDE 500 MG PO (08:44)
[2024-06-22] MEDS: OSCAL 500 + D 1000 MG PO (08:45)
[2024-06-22] MEDS: DELTASONE 10 MG PO (08:45)
[2024-06-22] MEDS: PROZAC 80 MG PO (08:45)
[2024-06-22] MEDS: WELLBUTRIN XL (24 hour extended release) 300 MG PO (08:45)
[2024-06-22] MEDS: LIPITOR 20 MG PO (08:45)
[2024-06-22] MEDS: AZULFIDINE 1000 MG PO ×2 (08:45→20:35)
[2024-06-22 08:46] LABS: % Basophils 0.2 % (0-2); % Eosinophils 0.7 % (0-6); % Immature Granulocytes 0.7 % (0-0.5); % Lymphocytes 14.7 % (20.5-51.1); % Monocytes 7.1 % (1.7-9.3); % Neutrophils 76.6 % (42.2-75.2); Absolute Lymphocytes 0.7 10^3/uL (1.2-3.4); Absolute Monocytes 0.3 10^3/uL (0.1-0.6); Absolute Neutrophils 3.4 10^3/uL (1.4-6.5); Hematocrit 40.4 % (39.0-52.0); Hemoglobin 13.4 g/dL (13.0-18.0); Mean Corp Hgb Conc. 33.2 g/dL (33.0-37.0); Mean Corpuscular Hgb 28.9 pg (27.0-31.0); Mean Corpuscular Volume 87.3 fL (80.0-94.0); Mean Platelet Volume 10.2 fL (7.4-10.4); Nucleated Red Blood Cells % 0 % (-); Platelet Count 124 10^3/uL (130-400); Red Blood Cell Count 4.63 10^6/uL (4.70-6.10); Red Cell Dist. Width 15.4 % (11.5-14.5); White Blood Cell Count 4.5 10^3/uL (4.8-10.8)
[2024-06-22 09:07] LABS: ALT (SGPT) 44 U/L (0-50); AST (SGOT) 75 U/L (17-59); Alkaline Phosphatase 106 U/L (38-126); Blood Urea Nitrogen 15 mg/dl (9-20); Calcium 8.4 mg/dl (8.4-10.2); Carbon Dioxide 31 mmol/L (22-30); Chloride 102 mmol/L (98-107); Estimated Creatinine Clearance 87 ml/min; Glucose 120 mg/dl (70-99); Magnesium 2.1 mg/dl (1.6-2.3); Phosphorus 2.7 mg/dl (2.5-4.5); Sodium 134 mmol/L (135-145); Total Bilirubin 0.4 mg/dl (0.2-1.3); Total Protein 5.9 g/dl (6.3-8.2); eGFR > 60.00
--- NOTE | 2024-06-22 09:54 | CM ---
Reviewed the chart notes and spoke with the patient's daughter Cheri via telephone. Per Cheri, she spoke with [facility] [phone] this morning regarding his next scheduled infusion (06/25/24). Per Cheri, the company would required the
patient's infection to be resolved prior to receiving any further IVIG treatments. Referral was previous sent to [facility], awaiting response. continues to be available to patient/family and is monitoring medical plan for needs at discharge.
Plan: Discharge to SNF/rehab once bed found and medically stable. No precert required.
[2024-06-22 11:50] VITALS: BP 103/69
[2024-06-22 15:56] VITALS: BP 106/65
[2024-06-22 16:34] VITALS: BP 109/74; BP 129/91; PULSE 110; PULSE 94; O2SAT 95
[2024-06-22] MEDS: LOVENOX 40 MG SC (17:33)
[2024-06-22 23:39] VITALS: BP 119/92
[2024-06-23] VITALS (7 sets, daily range): BP systolic 102–140; BP diastolic 70–90; PULSE 89–92; O2SAT 96; BMI 20.2
[2024-06-23] MEDS: STERILE WATER FOR INJECTION 10 ML IV ×4 (01:08→20:50)
[2024-06-23] MEDS: MERREM 500 MG IV ×4 (01:08→20:50)
[2024-06-23] MEDS: SYNTHROID 88 MCG PO (05:05)
[2024-06-23] MEDS: PROZAC 80 MG PO (08:07)
[2024-06-23] MEDS: LIPITOR 20 MG PO (08:07)
[2024-06-23] MEDS: OSCAL 500 + D 1000 MG PO (08:07)
[2024-06-23] MEDS: COREG 3.125 MG PO ×2 (08:07→20:50)
[2024-06-23] MEDS: ABILIFY 10 MG PO (08:07)
[2024-06-23] MEDS: AZULFIDINE 1000 MG PO ×2 (08:07→20:51)
[2024-06-23] MEDS: WELLBUTRIN XL (24 hour extended release) 150 MG PO (08:07)
[2024-06-23] MEDS: DELTASONE 10 MG PO (08:07)
[2024-06-23] MEDS: MAGNESIUM OXIDE 500 MG PO (08:07)
[2024-06-23] MEDS: WELLBUTRIN XL (24 hour extended release) 300 MG PO (08:07)
--- NOTE | 2024-06-23 08:13 | W.PN.HOSP.TC ---
Addendum entered and electronically signed by Kolby Beach MD 06/23/24 15:52:
Blood/Urine C&S now available Currently on Meropenem. Will request ID input as to abx. CM asking about timing of dc, potential timing pending Inf Disease input
Original Note:
Today's Communication/Plan
-
await Blood/Urine bact sens
Assessment / Plan
Assessment / Plan
septic shock
urinary source, fever to 102.2, hypotensive, very weak on admission, significantly improved since then. Resolved
Lactic Acidosis resolved 2.6-->1.3
Currently good BP 126/79
pt received 2 liters NS in ER and remained hypotensive. Levophed ordered and was admitted to ICU. BP better, off Levo,
was transferred to tele
WBC 3.9-->6.4-->4.5k
E. Coli bacteremia
most likely urinary source
UTI
changed over to Meropenem with hx of ESBL
Blood Cx, Ur Cx pos E.Coli, sens pending
Hx of Prostate Cancer
dx in 2013, post prostate resection, XRT and Lupron)
Chronic neuropathy (CIDP)
goes to neurologist in [facility] (does not remember name) and receives IV infusion q3wks
COPD by hx (quit smoking 1989)
Past hx of cardiomyopathy (Takotsubo CM) - resolved
06/2019 EF noted to be 25%, Echo of 12/2020 demonstrated EF 55-60%
Crohn's
on chronic Sulfasalazine and Prednisone 10 mg (used for both this and neuropathy)
Swallowing impairment
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
Speech consulted, started Pureed diet. Speech cleared for advance diet to IDDSI, level 6 with thin liquids
recurrent falling/syncope
pt does fall, felt to be related to his CIDP, but as per dgt had been worsening over several days prior to this admission
P:await E. Coli sens
continue current abx pending sensitivities
extensive review with gaviota Alonzo, by phone 06/22 morning (>25 minutes)
full code
Anticipated Discharge: 24 - 48 hours
Subjective/Interval History
-
Date of Service: June 23, 2024
Voice is stronger,more alert
Objective Data
-
Vital Signs:
Vital Signs
Temp Pulse Resp BP Pulse Ox
98.0 F 87 18 125/86 95
06/23/24 03:09 06/23/24 03:09 06/23/24 03:09 06/23/24 03:09 06/23/24 03:09
I&O
06/22/24 06/23/24 06/24/24
06:59 06:59 06:59
Intake Total 1451.1 / 1451.1 1680 / 1680
Output Total 1725 / 1725 1480 / 1480
Balance -273.9 / -273.9 200 / 200
Review of Systems
-
History Source: Patient and Coordinated Provider
Constitutional: Reports Fever (102.2 on admission, none since 06/20 08:05)
EENT: Reports No Symptoms Reported
Respiratory: Denies No Symptoms
Cardiac: Denies No Symptoms
Genitourinary: Reports Frequency (prior to admission); Denies Dysuria (pt denies) or Flank Pain
Musculoskeletal: Reports Other (muoltiple bruises)
Neuro: Reports Other (syncope)
Physical Exam
-
General: Well Developed, Well Nourished and No Apparent Distress; Negative Respiratory Distress
HEENT: Normocephalic; Negative Atraumatic (rt side of head with extensive bruising that is fading)
Respiratory: Clear to Auscultation (moving air better, taking a deeper breath, lungs now sound clear); Negative Wheezes, Rales or Rhonchi
Cardiac: Regular Rhythm and S1/S2
GI: Soft, Nontender and Nondistended
Musculoskeletal: No Clubbing, No Cyanosis and No Edema
Neuro: Awake, Alert, Oriented and Other (voice is stronger, much more alert)
Psych: Calm
--- NOTE | 2024-06-23 16:37 | CM ---
met with patient at bedside and spoke with daughter migel.awaiting blood and urine sensitivities,on meropenem for ecoli.following wbc.
spoke with luis ponce from [facility].called debra from [facility].cost of infuson will be covered by medicare d.gamunex c 55gm or 550 mg infusion.debra is able to come to facility to administer the infusion x2 days.[facility] is able to
accept patient.daughter is aware of acceptance at facility..plan:[facility] tomorrow.
[2024-06-23] MEDS: LOVENOX 40 MG SC (17:04)
[2024-06-24] VITALS (7 sets, daily range): BP systolic 107–147; BP diastolic 75–93; BMI 20.6
[2024-06-24] MEDS: MERREM 500 MG IV ×2 (03:02→07:49)
[2024-06-24] MEDS: STERILE WATER FOR INJECTION 10 ML IV ×2 (03:02→07:49)
[2024-06-24] MEDS: SYNTHROID 88 MCG PO (06:16)
[2024-06-24] MEDS: MAGNESIUM OXIDE 500 MG PO (07:47)
[2024-06-24] MEDS: PROZAC 80 MG PO (07:47)
[2024-06-24] MEDS: ABILIFY 10 MG PO (07:48)
[2024-06-24] MEDS: DELTASONE 10 MG PO (07:48)
[2024-06-24] MEDS: WELLBUTRIN XL (24 hour extended release) 300 MG PO (07:48)
[2024-06-24] MEDS: COREG 3.125 MG PO ×2 (07:48→20:50)
[2024-06-24] MEDS: LIPITOR 20 MG PO (07:48)
[2024-06-24] MEDS: AZULFIDINE 1000 MG PO ×2 (07:48→20:50)
[2024-06-24] MEDS: OSCAL 500 + D 1000 MG PO (07:48)
[2024-06-24] MEDS: WELLBUTRIN XL (24 hour extended release) 150 MG PO (07:48)
--- NOTE | 2024-06-24 10:38 | CON.ID ---
Consultation
-
Date/Time Consultation Requested: 06/23/2024 1548
Date/Time Consultation Performed: 06/24/2024 1031
Requesting Provider: Dr. Beach
Performing Provider: Dr. Vann
Reason for Consultation: Bacteremia; UTI
Chief Complaint / Past History
History of Present Illness
Jase Arroyo is a 73-year-old man being evaluated at the request of Dr. Beach in regards to bacteremia. History is obtained from chart review, along with patient interview.
Patient has a significant past medical history of A-fib, CAD and hep C. He presented to [facility] ER on 06/20 with generalized weakness and status post several falls at home. He was found to be incontinent by EMS when they arrived on site.
No known loss of consciousness following several falls. In the emergency room, he was found to be febrile to 102 degrees. He was also noted to be leukopenic with a significant left shift. Blood cultures obtained at admission are now positive for
E. coli, and Infectious Diseases is asked to comment upon further antimicrobial management.
The patient reports that he has been feeling ill for several weeks now. He denies any headache. He denies any shortness of breath or cough. He does note that he has been incontinent of urine for some time. No noted dysuria or hematuria. No
abdominal pain.
Past History
Additional Past Medical History:
A-fib
CAD; Hx [place]
Prostate CA
Dyslipidemia
Hypothyroidism
Anxiety/depression
Hepatitis C
Crohn's disease
Cardiomyopathy
Hx PE
Additional Past Surgical History:
Appendectomy
Prostatectomy
Vocal cord repair
Allergy History:
No Known Allergies Allergy (Verified 11/06/22 19:43)
Medications Reviewed: Yes
Current Antibiotics:
Meropenem 500 mg IV every 6 hours
Social History
Tobacco: Former Smoker
Alcohol: None
Drug: Former User
Personal:
Living: With Family
Employment: Retired
Review of Systems
Vital Signs
Temp Pulse Resp BP Pulse Ox
97.9 F 75 18 131/90 97
06/24/24 07:55 06/24/24 07:55 06/24/24 07:55 06/24/24 07:55 06/24/24 07:55
Physical Exam
Physical Exam
Constitutional: Comfortable, Chronically Ill and Non-toxic
Head: Normocephalic
Eyes: Pupils Equal, Pupils Round, No Conjunctival Hemorrhage and Sclera Anicteric
Oral: No Thrush and No Ulcers
Cardiovascular: Irregular Rate and S1/S2; Negative S3/S4 or Murmur
Pulmonary: Non Labored; Negative Wheezes, Rales or Rhonchi
Gastrointestinal: Soft, Non Tender, Non Distended and Normal Bowel Sounds
Genito-Urinary: Negative Mary
Extremities: Negative Edema, Cyanosis or Erythema
Skin: Warm and Dry; Negative Rash or Jaundice
Neurological: Awake and Alert
Psychological: Calm
Lab / Diagnostic Study Results
06/22/24 08:02
06/22/24 08:02
Abs Immat Gran (auto) 0.0 10^3/uL (0-0.05) 06/22/24 08:02
Absolute Neuts (auto) 3.4 10^3/uL (1.4-6.5) 06/22/24 08:02
Absolute Lymphs (auto) 0.7 10^3/uL (1.2-3.4) L 06/22/24 08:02
Absolute Monos (auto) 0.3 10^3/uL (0.1-0.6) 06/22/24 08:02
Absolute Basos (auto) 0.0 10^3/uL (0-0.2) 06/22/24 08:02
Immature Gran % 0.7 % (0-0.5) H 06/22/24 08:02
Neutrophils % 76.6 % (42.2-75.2) H 06/22/24 08:02
Lymphocytes % 14.7 % (20.5-51.1) L 06/22/24 08:02
Monocytes % 7.1 % (1.7-9.3) 06/22/24 08:02
Eosinophils % 0.7 % (0-6) 06/22/24 08:02
Basophils % 0.2 % (0-2) 06/22/24 08:02
PT 15.4 Sec (11.4-14.6) H 06/20/24 15:59
INR 1.24 06/20/24 15:59
Lactic Acid Cancelled 06/20/24 14:00
Ur Squamous Epith Cells 0-2 /LPF (Few) 06/20/24 08:17
Microbiology Results
Micro:
06/20/24 08:25 Blood Culture - Preliminary
Blood/Venous Escherichia coli
Gram Stain - Preliminary
06/20/24 08:17 Urine Culture - Final
Urine Escherichia coli
06/21/24 04:51 MRSA Screen - Final
Nose No Methicillin Resistant Staphylococcus aureus isolated.
Assessment / Plan
Complicated UTI
Bacteremia with E. coli
Fever; improved
A-fib
CAD; Hx MA
Prostate CA
Dyslipidemia
Hypothyroidism
Anxiety/depression
Hepatitis C
Crohn's disease
Cardiomyopathy
Hx PE
Recommendations:
Narrow abx to cefazolin 2 gm IV q8h
Given UTI with bacteremia, will check renal (with bladder) US.
Repeat BC x1 to assure clearance.
If remains clinically stable, can likely transition to Keflex 500 mg p.o. 4 times daily at discharge. Would continue with antibiotics through 07/02.
Care Review
Plan reviewed with: Physician (Hospitalist)
--- NOTE | 2024-06-24 10:46 | W.PN.HOSP.TC ---
Today's Communication/Plan
-
await ID consult
repeat blood cultures and renal US
Assessment / Plan
Assessment / Plan
Assessment:
Septic shock - resolved
Multi-drug resistant E. Coli UTI with Bacteremia
- s/p IVF, Levophed
- consulted ID for Abx recs with multiple resistances in C+S, may need IV abx at discharge
- currently on Meropenem
- follow repeat cultures
- check Renal US
Hx of Prostate Cancer (dx in 2013, post prostate resection, XRT and Lupron)
Chronic neuropathy (CIDP)
- OP Neurologist follow up [place]
COPD by hx (quit smoking 1989)
Past hx of cardiomyopathy (Takotsubo CM) - resolved
- 06/2019 EF noted to be 25%, Echo of 12/2020 demonstrated EF 55-60%
Crohn's
- on chronic Sulfasalazine and Prednisone 10 mg (used for both this and neuropathy)
Swallowing impairment
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
- Speech consulted, started Pureed diet. Speech cleared for advance diet to IDDSI, level 6 with thin liquids
recurrent falling/syncope
- pt does fall, felt to be related to his CIDP, but as per dgt had been worsening over several days prior to this admission
DVT ppx: Lovenox
Code: Full
Anticipated Discharge: > 48 hours
Subjective/Interval History
-
Date of Service: June 24, 2024
no new complaints at present
Objective Data
-
Vital Signs:
Vital Signs
Temp Pulse Resp BP Pulse Ox
97.9 F 75 18 131/90 97
06/24/24 07:55 06/24/24 07:55 06/24/24 07:55 06/24/24 07:55 06/24/24 07:55
I&O
06/23/24 06/24/24 06/25/24
06:59 06:59 06:59
Intake Total 1680 / 1680 1640 / 1640
Output Total 1480 / 1480 1450 / 1450
Balance 200 / 200 190 / 190
Physical Exam
-
General: No Apparent Distress
HEENT: Normocephalic
Respiratory: Negative Wheezes
Cardiac: Regular Rhythm and S1/S2
GI: Soft
Genito-urinary: No Costovertebral Tender
Neuro: AO x 3
Psych: Calm
Data Reviewed
-
Total Time Spent with Patient (in minutes): 42
Labs: Labs Reviewed by me
[2024-06-24] MEDS: FLUSH (NSS) 2 FLUSH IV ×2 (11:46→20:51)
[2024-06-24] MEDS: ANCEF 10 IV ×2 (11:47→20:49)
--- NOTE | 2024-06-24 14:22 | CM ---
Reviewed the chart notes. Per notes, Gamunex-C is covered by Medicare part D. [facility] will send RN Alexandra to give infusion at SNF. CM continues to be available to patient/family and is monitoring medical plan for needs at discharge.
Plan: Discharge to [facility] possibly on Thursday if stable.
[2024-06-24] MEDS: LOVENOX 40 MG SC (17:51)
[2024-06-25] VITALS (7 sets, daily range): BP systolic 105–131; BP diastolic 70–84
[2024-06-25] MEDS: ANCEF 10 IV ×3 (03:13→20:02)
[2024-06-25] MEDS: FLUSH (NSS) 2 FLUSH IV ×2 (03:14→20:03)
[2024-06-25] MEDS: SYNTHROID 88 MCG PO (04:46)
[2024-06-25 05:44] LABS: Hematocrit 42.1 % (39.0-52.0); Mean Corp Hgb Conc. 33.3 g/dL (33.0-37.0); Mean Corpuscular Hgb 29.2 pg (27.0-31.0); Mean Corpuscular Volume 87.7 fL (80.0-94.0); Mean Platelet Volume 9.6 fL (7.4-10.4); Platelet Count 184 10^3/uL (130-400); Red Cell Dist. Width 15.2 % (11.5-14.5); White Blood Cell Count 5.4 10^3/uL (4.8-10.8)
[2024-06-25 05:57] LABS: Blood Urea Nitrogen 21 mg/dl (9-20); Calcium 8.8 mg/dl (8.4-10.2); Carbon Dioxide 30 mmol/L (22-30); Chloride 100 mmol/L (98-107); Estimated Creatinine Clearance 73 ml/min; Glucose 95 mg/dl (70-99); Potassium 4.7 mmol/L (3.5-5.1); Sodium 138 mmol/L (135-145); eGFR > 60.00
[2024-06-25] MEDS: MAGNESIUM OXIDE 500 MG PO (09:02)
[2024-06-25] MEDS: LIPITOR 20 MG PO (09:02)
[2024-06-25] MEDS: AZULFIDINE 1000 MG PO ×2 (09:02→20:03)
[2024-06-25] MEDS: ABILIFY 10 MG PO (09:02)
[2024-06-25] MEDS: DELTASONE 10 MG PO (09:02)
[2024-06-25] MEDS: WELLBUTRIN XL (24 hour extended release) 300 MG PO (09:02)
[2024-06-25] MEDS: OSCAL 500 + D 1000 MG PO (09:02)
[2024-06-25] MEDS: PROZAC 80 MG PO (09:02)
[2024-06-25] MEDS: WELLBUTRIN XL (24 hour extended release) 150 MG PO (09:02)
[2024-06-25] MEDS: COREG 3.125 MG PO ×2 (09:03→20:03)
--- NOTE | 2024-06-25 09:56 | W.PN.ID1 ---
Date of Service
Date of Service: June 25, 2024
Today's Communication
Continue antibiotics. Await ultrasound.
Assessment / Plan
Complicated UTI
Bacteremia with E. coli
Fever; improved
A-fib
CAD; Hx [place]
Prostate CA
Dyslipidemia
Hypothyroidism
Anxiety/depression
Hepatitis C
Crohn's disease
Cardiomyopathy
Hx PE
Recommendations:
Narrow abx to cefazolin 2 gm IV q8h
Renal (with bladder) US pending
Repeat BC x1 to assure clearance.
If remains clinically stable, can likely transition to Keflex 500 mg p.o. 4 times daily at discharge. Would continue with antibiotics through 07/02.
Chief Complaint
-: UTI
Subjective / Review of Systems
Review of Systems: No Fever and No Chills
Vital Signs / Physical Exam
Vital Signs
Vital Signs
Temp Pulse Resp BP Pulse Ox
98.5 F 93 16 105/76 97
06/25/24 07:35 06/25/24 09:03 06/25/24 07:35 06/25/24 09:03 06/25/24 07:35
Physical Exam
Constitutional: No Acute Distress, Comfortable, Chronically Ill and Non-toxic
Eyes: Sclera Anicteric
Cardiovascular: S1/S2; Negative S3/S4
Pulmonary: Non Labored
Gastrointestinal: Soft, Non Tender and Non Distended
Genito-Urinary: Mary
Neurological: Awake and Alert
Psychological: Calm
Objective Data
Lab Data
Lab Results
06/25/24 04:47
06/25/24 04:47
PT 15.4 Sec (11.4-14.6) H 06/20/24 15:59
INR 1.24 06/20/24 15:59
APTT 31.1 Sec (23.4-35.0) 06/20/24 15:59
Estimated Creat Clear 73 ml/min 06/25/24 04:47
Lactic Acid Cancelled 06/20/24 14:00
Total Bilirubin 0.4 mg/dl (0.2-1.3) 06/22/24 08:02
AST 75 U/L (17-59) H 06/22/24 08:02
ALT 44 U/L (0-50) 06/22/24 08:02
Alkaline Phosphatase 106 U/L (38-126) 06/22/24 08:02
Most recent labs reviewed.
Micro Results:
06/24/24 11:04 Blood Culture - Pending
Blood/Venous
06/20/24 08:25 Blood Culture - Preliminary
Blood/Venous Escherichia coli
Gram Stain - Preliminary
06/20/24 08:17 Urine Culture - Final
Urine Escherichia coli
06/21/24 04:51 MRSA Screen - Final
Nose No Methicillin Resistant Staphylococcus aureus isolated.
Blood Culture Preliminary 06/23/24-822
Positive for Escherichia coli by [employer]
Nucleic Acid Methodology.
Organism 1 Escherichia coli
1. Escherichia coli
M.I.C. RX
--------- ---
Amoxicillin/Potas. Clavulanate 16/8 I
Ampicillin >16 R
Ampicillin/Sulbactam 16/8 I
Aztreonam <=4 S
Cefazolin <=2 S
Ertapenem <=0.5 S
Ciprofloxacin >2 R
Gentamicin >8 R
Meropenem <=1 S
Piperacillin/Tazobactam <=8 S
Tetracycline >8 R
Tobramycin >8 R
Trimethoprim/Sulfamethoxazole >2/38 R
--- NOTE | 2024-06-25 11:27 | W.PN.HOSP.TC ---
Today's Communication/Plan
-
await repeat blood cultures
Renal US
Assessment / Plan
Assessment / Plan
Assessment:
Septic shock - resolved
Multi-drug resistant E. Coli UTI with Bacteremia
- s/p IVF, Levophed
- ID following, currentnly on Ancef, with possibility to transition to Keflex at discharge
- follow repeat cultures
- check Renal US
Hx of Prostate Cancer (dx in 2013, post prostate resection, XRT and Lupron)
Chronic neuropathy (CIDP)
- OP Neurologist follow up [place]
COPD by hx (quit smoking 1989)
Past hx of cardiomyopathy (Takotsubo CM) - resolved
- 06/2019 EF noted to be 25%, Echo of 12/2020 demonstrated EF 55-60%
Crohn's
- on chronic Sulfasalazine and Prednisone 10 mg (used for both this and neuropathy)
Swallowing impairment
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
- Speech consulted, started Pureed diet. Speech cleared for advance diet to IDDSI, level 6 with thin liquids
recurrent falling/syncope
- pt does fall, felt to be related to his CIDP, but as per dgt had been worsening over several days prior to this admission
DVT ppx: Lovenox
Code: Full
Anticipated Discharge: > 48 hours
Subjective/Interval History
-
Date of Service: June 25, 2024
no fever/chills
for US today
Objective Data
-
Labs:
Laboratory Results
06/25/24
04:47
WBC 5.4
Hgb 14.0
Hct 42.1
Plt Count 184 D
Sodium 138
Potassium 4.7
Chloride 100
Carbon Dioxide 30
BUN 21 H
Creatinine 0.9
Glucose 95
Calcium 8.8
Vital Signs:
Vital Signs
Temp Pulse Resp BP Pulse Ox
98.1 F 85 16 124/83 97
06/25/24 11:00 06/25/24 11:00 06/25/24 11:00 06/25/24 11:00 06/25/24 11:00
I&O
06/24/24 06/25/24 06/26/24
06:59 06:59 06:59
Intake Total 1640 / 1640 440 / 440
Output Total 1450 / 1450 950 / 950
Balance 190 / 190 -510 / -510
Physical Exam
-
General: No Apparent Distress
HEENT: Normocephalic and Atraumatic
Respiratory: Negative Wheezes
Cardiac: Regular Rhythm and S1/S2
GI: Soft
Genito-urinary: No Costovertebral Tender
Neuro: AO x 3
Psych: Calm
Data Reviewed
-
Total Time Spent with Patient (in minutes): 41
Labs: Labs Reviewed by me
--- NOTE | 2024-06-25 16:00 | CM ---
Reviewed the chart notes. IMM reviewed and placed on chart.
[2024-06-25] MEDS: LOVENOX 40 MG SC (17:22)
[2024-06-26] VITALS (7 sets, daily range): BP systolic 105–139; BP diastolic 66–85
[2024-06-26] MEDS: ANCEF 10 IV ×3 (03:55→21:50)
[2024-06-26] MEDS: FLUSH (NSS) 2 FLUSH IV (03:58)
[2024-06-26] MEDS: SYNTHROID 88 MCG PO (04:29)
[2024-06-26 07:16] LABS: Hematocrit 42.2 % (39.0-52.0); Hemoglobin 14.1 g/dL (13.0-18.0); Mean Corp Hgb Conc. 33.4 g/dL (33.0-37.0); Mean Corpuscular Volume 86.8 fL (80.0-94.0); Mean Platelet Volume 9.7 fL (7.4-10.4); Platelet Count 207 10^3/uL (130-400); Red Blood Cell Count 4.86 10^6/uL (4.70-6.10); Red Cell Dist. Width 15.5 % (11.5-14.5); White Blood Cell Count 5.7 10^3/uL (4.8-10.8)
[2024-06-26 07:33] LABS: Blood Urea Nitrogen 19 mg/dl (9-20); Carbon Dioxide 29 mmol/L (22-30); Chloride 100 mmol/L (98-107); Estimated Creatinine Clearance 73 ml/min; Glucose 79 mg/dl (70-99); Potassium 4.2 mmol/L (3.5-5.1); Sodium 138 mmol/L (135-145); eGFR > 60.00
--- NOTE | 2024-06-26 08:04 | W.PN.HOSP.TC ---
Today's Communication/Plan
-
DC Planning to SNF
Assessment / Plan
Assessment / Plan
Assessment:
Septic shock - resolved
Multi-drug resistant E. Coli UTI with Bacteremia
- s/p IVF, Levophed
- ID following, currentnly on Ancef, with possibility to transition to Keflex at discharge
- repeat cultures NGTD 24 hours
- Renal US: Large simple left renal cyst.
Hx of Prostate Cancer (dx in 2013, post prostate resection, XRT and Lupron)
Chronic neuropathy (CIDP)
- OP Neurologist follow up [place]
COPD by hx (quit smoking 1989)
Past hx of cardiomyopathy (Takotsubo CM) - resolved
- 06/2019 EF noted to be 25%, Echo of 12/2020 demonstrated EF 55-60%
Crohn's
- on chronic Sulfasalazine and Prednisone 10 mg (used for both this and neuropathy)
Swallowing impairment
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
- Speech consulted, started Pureed diet. Speech cleared for advance diet to IDDSI, level 6 with thin liquids
recurrent falling/syncope
- pt does fall, felt to be related to his CIDP, but as per dgt had been worsening over several days prior to this admission
DVT ppx: Lovenox
Code: Full
Anticipated Discharge: Within 24 hours
Subjective/Interval History
-
Date of Service: June 26, 2024
no new complaints at present
Objective Data
-
Labs:
Laboratory Results
06/26/24
06:12
WBC 5.7
Hgb 14.1
Hct 42.2
Plt Count 207
Sodium 138
Potassium 4.2
Chloride 100
Carbon Dioxide 29
BUN 19
Creatinine 0.9
Glucose 79
Calcium 9.0
Vital Signs:
Vital Signs
Temp Pulse Resp BP Pulse Ox
98.4 F 89 18 118/71 97
06/26/24 03:39 06/26/24 03:39 06/26/24 03:39 06/26/24 03:39 06/26/24 03:39
I&O
06/25/24 06/26/24 06/27/24
06:59 06:59 06:59
Intake Total 440 / 440 1100 / 1100
Output Total 950 / 950 1600 / 1600
Balance -510 / -510 -500 / -500
Physical Exam
-
General: No Apparent Distress
HEENT: Normocephalic and Atraumatic
Respiratory: Negative Wheezes
Cardiac: Regular Rhythm and S1/S2
GI: Soft
Genito-urinary: No Costovertebral Tender
Neuro: AO x 3
Hematologic / Lymphatic: No Lymphadenopathy
Psych: Calm
Data Reviewed
-
Total Time Spent with Patient (in minutes): 43
Labs: Labs Reviewed by me
[2024-06-26] MEDS: MAGNESIUM OXIDE 500 MG PO (08:45)
[2024-06-26] MEDS: FOSAMAX 70 MG PO (08:45)
[2024-06-26] MEDS: DELTASONE 10 MG PO (08:45)
[2024-06-26] MEDS: WELLBUTRIN XL (24 hour extended release) 300 MG PO (08:45)
[2024-06-26] MEDS: WELLBUTRIN XL (24 hour extended release) 150 MG PO (08:45)
[2024-06-26] MEDS: OSCAL 500 + D 1000 MG PO (08:45)
[2024-06-26] MEDS: AZULFIDINE 1000 MG PO ×2 (08:45→21:51)
[2024-06-26] MEDS: ABILIFY 10 MG PO (08:45)
[2024-06-26] MEDS: LIPITOR 20 MG PO (08:45)
[2024-06-26] MEDS: COREG 3.125 MG PO ×2 (08:46→21:51)
[2024-06-26] MEDS: PROZAC PO (08:50)
--- NOTE | 2024-06-26 08:53 | PTCARENOTE ---
per patient and daughter pt takes prozac 80mg HS. this nurse marked morning dose as not given, hospitalist to change dose time to match patients at home administration.
--- NOTE | 2024-06-26 10:50 | W.PN.ID1 ---
Date of Service
Date of Service: June 26, 2024
Today's Communication
Continue antibiotics.
Assessment / Plan
Complicated UTI
Bacteremia with E. coli
Fever; improved
A-fib
CAD; Hx [facility]
Prostate CA
Dyslipidemia
Hypothyroidism
Anxiety/depression
Hepatitis C
Crohn's disease
Cardiomyopathy
Hx PE
Recommendations:
Continue cefazolin 2 gm IV q8h
Renal (with bladder) US without hydronephrosis.
Repeat blood cultures negative.
Transition to Keflex 500 mg p.o. 4 times daily at discharge. Would continue with antibiotics through 07/02.
����������������������������������������������������������
Chief Complaint
-: UTI and Bacteremia
Subjective / Review of Systems
Review of Systems: No Fever and No Chills
Vital Signs / Physical Exam
Vital Signs
Vital Signs
Temp Pulse Resp BP Pulse Ox
98.3 F 91 16 139/85 96
06/26/24 07:35 06/26/24 07:35 06/26/24 07:35 06/26/24 08:46 06/26/24 07:35
Physical Exam
Constitutional: No Acute Distress, Comfortable, Chronically Ill and Non-toxic
Eyes: Sclera Anicteric
Cardiovascular: S1/S2; Negative S3/S4
Pulmonary: Non Labored
Gastrointestinal: Soft, Non Tender and Non Distended
Genito-Urinary: Mary
Skin: Negative Rash or Jaundice
Neurological: Awake and Alert
Psychological: Calm
Objective Data
Lab Data
Lab Results
06/26/24 06:12
06/26/24 06:12
PT 15.4 Sec (11.4-14.6) H 06/20/24 15:59
INR 1.24 06/20/24 15:59
APTT 31.1 Sec (23.4-35.0) 06/20/24 15:59
Estimated Creat Clear 73 ml/min 06/26/24 06:12
Lactic Acid Cancelled 06/20/24 14:00
Total Bilirubin 0.4 mg/dl (0.2-1.3) 06/22/24 08:02
AST 75 U/L (17-59) H 06/22/24 08:02
ALT 44 U/L (0-50) 06/22/24 08:02
Alkaline Phosphatase 106 U/L (38-126) 06/22/24 08:02
Most recent labs reviewed.
Micro Results:
06/24/24 11:04 Blood Culture - Preliminary
Blood/Venous No Growth in 24 hours- Final report to follow
06/20/24 08:25 Blood Culture - Preliminary
Blood/Venous Escherichia coli
Gram Stain - Preliminary
06/20/24 08:17 Urine Culture - Final
Urine Escherichia coli
06/21/24 04:51 MRSA Screen - Final
Nose No Methicillin Resistant Staphylococcus aureus isolated.
Blood Culture Preliminary 06/23/24-822
Positive for Escherichia coli by Nanosphere Verigene
Nucleic Acid Methodology.
Organism 1 Escherichia coli
1. Escherichia coli
M.I.C. RX
--------- ---
Amoxicillin/Potas. Clavulanate 16/8 I
Ampicillin >16 R
Ampicillin/Sulbactam 16/8 I
Aztreonam <=4 S
Cefazolin <=2 S <-----
Ertapenem <=0.5 S
Ciprofloxacin >2 R
Gentamicin >8 R
Meropenem <=1 S
Piperacillin/Tazobactam <=8 S
Tetracycline >8 R
Tobramycin >8 R
Trimethoprim/Sulfamethoxazole > R
--- NOTE | 2024-06-26 13:07 | CM ---
CM spoke with Ashley at [facility], they are planning to accept when medically appropriate, however, they are asking for confirmation from [facility] [phone] regarding needed infusions. CM reviewed case with physician and plan is for discharge
tomorrow. CM will need to confirm bed availability tomorrow prior to discharge. CM will continue to follow for discharge planning needs.
Please call report to [phone]/fax [phone] when appropriate.
[2024-06-26] MEDS: LOVENOX 40 MG SC (17:41)
[2024-06-26] MEDS: PROZAC 80 MG PO (21:53)
[2024-06-27] MEDS: SYNTHROID 88 MCG PO (04:51)
[2024-06-27] MEDS: ANCEF 10 IV ×2 (04:51→11:55)
[2024-06-27 07:30] VITALS: BP 127/75
[2024-06-27] MEDS: WELLBUTRIN XL (24 hour extended release) 150 MG PO (08:44)
[2024-06-27] MEDS: ABILIFY 10 MG PO (08:44)
[2024-06-27] MEDS: WELLBUTRIN XL (24 hour extended release) 300 MG PO (08:44)
[2024-06-27] MEDS: MAGNESIUM OXIDE 500 MG PO (08:44)
[2024-06-27] MEDS: OSCAL 500 + D 1000 MG PO (08:44)
[2024-06-27] MEDS: AZULFIDINE 1000 MG PO (08:44)
[2024-06-27] MEDS: LIPITOR 20 MG PO (08:44)
[2024-06-27] MEDS: DELTASONE 10 MG PO (08:44)
[2024-06-27] MEDS: COREG 3.125 MG PO (08:45)
--- NOTE | 2024-06-27 08:46 | W.PN.HOSP.TC ---
Today's Communication/Plan
-
dc to SNF
Assessment / Plan
Assessment / Plan
Assessment:
Septic shock - resolved
Multi-drug resistant E. Coli UTI with Bacteremia
- s/p IVF, Levophed
- ID following, currently on Ancef, with plan to transition to Keflex at discharge
- repeat cultures NGTD 48 hours
- Renal US: Large simple left renal cyst.
Hx of Prostate Cancer (dx in 2013, post prostate resection, XRT and Lupron)
Chronic neuropathy (CIDP)
- OP Neurologist follow up [place]
COPD by hx (quit smoking 1989)
Past hx of cardiomyopathy (Takotsubo CM) - resolved
- 06/2019 EF noted to be 25%, Echo of 12/2020 demonstrated EF 55-60%
Crohn's
- on chronic Sulfasalazine and Prednisone 10 mg (used for both this and neuropathy)
Swallowing impairment
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
- Speech consulted, started Pureed diet. Speech cleared for advance diet to IDDSI, level 6 with thin liquids
recurrent falling/syncope
- pt does fall, felt to be related to his CIDP, but as per dgt had been worsening over several days prior to this admission
DVT ppx: Lovenox
Code: Full
More than 30 minutes spent in discharge including
Final examination of the patient
Summarizing hospital stay
Instructions for continuing care to all relevant caregivers
Preparation of discharge records, prescriptions, and referral forms
Total time spent (in minutes):41
Anticipated Discharge: Today
Subjective/Interval History
-
Date of Service: June 27, 2024
no complaints presently
Objective Data
-
Labs:
Laboratory Results
06/27/24
06:00
WBC Pending
Hgb Pending
Hct Pending
Plt Count Pending
Sodium Pending
Potassium Pending
Chloride Pending
Carbon Dioxide Pending
BUN Pending
Creatinine Pending
Glucose Pending
Calcium Pending
Vital Signs:
Vital Signs
Temp Pulse Resp BP Pulse Ox
98.5 F 86 16 127/75 95
06/27/24 07:30 06/27/24 07:30 06/27/24 07:30 06/27/24 07:30 06/27/24 07:30
I&O
06/26/24 06/27/24 06/28/24
06:59 06:59 06:59
Intake Total 1100 / 1100 1620 / 1620
Output Total 1600 / 1600 1725 / 1725
Balance -500 / -500 -105 / -105
Physical Exam
-
General: No Apparent Distress
HEENT: Normocephalic and Atraumatic
Respiratory: Negative Wheezes
Cardiac: Regular Rhythm and S1/S2
GI: Soft
Genito-urinary: No Costovertebral Tender
Neuro: AO x 3
Hematologic / Lymphatic: No Lymphadenopathy
Psych: Calm
Data Reviewed
-
Total Time Spent with Patient (in minutes): 41
Labs: Labs Reviewed by me
--- NOTE | 2024-06-27 09:09 | W.DS.TRANS ---
DC Summary - [employer]
-
Discharge Instructions:
Sleep Apnea Risk Intermediate
Discharge Diagnosis/Procedures septic shock, E. coli UTI with bacteremia
Additional Diets IDDSI 6 soft/bite sized
Other Services OT,PT
Instructions:
Stand-Alone Forms:
Changes to Home Medications: No
Discharge Medications:
DC Medications w/original date entered in [employer]
atorvastatin 20 mg tablet 20 mg PO DAILY High Cholesterol ##0 02/05/20
acetaminophen 325 mg tablet 650 mg (2 x 325 mg) PO Q4HPRN PRN pain/PEREZ/fever >100.4 #1 tab 02/06/20
bupropion HCl 150 mg 24 hr tablet, extended release 150 mg PO DAILY Mental Health/Anxiety 09/24/21
fluoxetine 40 mg capsule 80 mg PO DAILY Mental Health/Anxiety 09/24/21
levothyroxine 88 mcg tablet 88 mcg PO DAILY Thyroid 09/24/21
sulfasalazine 500 mg tablet 1,000 mg PO BID Gastrointestinal Issue 09/24/21
alendronate 70 mg tablet 70 mg PO DIALLO OSTEOPOROSIS 06/20/24
aripiprazole 10 mg tablet 10 mg PO DAILY Mental Health/Anxiety 06/20/24
bupropion HCl 300 mg 24 hr tablet, extended release 300 mg PO DAILY Mental Health/Anxiety 06/20/24
calcium citrate 315 mg calcium-vitamin D3 6.25 mcg (250 unit) tablet (Citracal + Vitamin D Maximum) 2 tab PO DAILY Supplement 06/20/24
carvedilol 3.125 mg tablet 3.125 mg PO BID Heart Disease/Condition 06/20/24
diphenhydramine HCl 25 mg capsule (Benadryl) 25 mg PO HSPRN PRN fever 06/20/24
immune glob G 20 gram/200 mL(10%)-gly-IgA ave 46 mcg/mL injection soln (Gamunex-C) ml IV Q3W Gastrointestinal Issue 06/20/24
inulin-sorbitol 2 gram chewable tablet 2 tab PO BID Supplement 06/20/24
magnesium oxide 400 mg (241.3 mg magnesium) tablet 400 mg PO DAILY Electrolyte Repletion 06/20/24
meloxicam 15 mg tablet 15 mg PO DAILY Pain 06/20/24
prednisone 10 mg tablet 10 mg PO DAILY Gastrointestinal Issue 06/20/24
cephalexin 500 mg capsule 500 mg PO QID #24 caps 06/27/24
Home Medication Changes
Pending Results: No
Total time spent discharging patient (in min): 41
[2024-06-27 10:16] LABS: Blood Urea Nitrogen 17 mg/dl (9-20); Calcium 9.2 mg/dl (8.4-10.2); Carbon Dioxide 33 mmol/L (22-30); Chloride 97 mmol/L (98-107); Estimated Creatinine Clearance 73 ml/min; Glucose 94 mg/dl (70-99); Potassium 3.9 mmol/L (3.5-5.1); Sodium 139 mmol/L (135-145); eGFR > 60.00
--- NOTE | 2024-06-27 10:40 | W.PN.ID1 ---
Date of Service
Date of Service: June 27, 2024
Today's Communication
Continue abx. See below.
Assessment / Plan
Complicated UTI
Bacteremia with E. coli
Fever; improved
A-fib
CAD; Hx [place]
Prostate CA
Dyslipidemia
Hypothyroidism
Anxiety/depression
Hepatitis C
Crohn's disease
Cardiomyopathy
Hx PE
Recommendations:
Renal (with bladder) US without hydronephrosis.
Repeat blood cultures negative.
Transition to Keflex 500 mg p.o. 4 times daily at discharge. Would continue with antibiotics through 07/02.
����������������������������������������������������������
Chief Complaint
-: UTI and Bacteremia
Subjective / Review of Systems
Review of Systems: No Fever, No Chills and No Dysuria
Vital Signs / Physical Exam
Vital Signs
Vital Signs
Temp Pulse Resp BP Pulse Ox
98.5 F 86 16 127/75 95
06/27/24 07:30 06/27/24 08:45 06/27/24 07:30 06/27/24 08:45 06/27/24 07:30
Physical Exam
Constitutional: No Acute Distress, Comfortable and Non-toxic
Cardiovascular: S1/S2; Negative S3/S4
Pulmonary: Clear and Non Labored
Gastrointestinal: Non Distended
Neurological: Awake, Alert and Oriented
Psychological: Calm
Objective Data
Lab Data
Lab Results
06/27/24 09:27
PT 15.4 Sec (11.4-14.6) H 06/20/24 15:59
INR 1.24 06/20/24 15:59
APTT 31.1 Sec (23.4-35.0) 06/20/24 15:59
Estimated Creat Clear 73 ml/min 06/27/24 09:27
Lactic Acid Cancelled 06/20/24 14:00
Total Bilirubin 0.4 mg/dl (0.2-1.3) 06/22/24 08:02
AST 75 U/L (17-59) H 06/22/24 08:02
ALT 44 U/L (0-50) 06/22/24 08:02
Alkaline Phosphatase 106 U/L (38-126) 06/22/24 08:02
Most recent labs reviewed.
Micro Results:
06/24/24 11:04 Blood Culture - Preliminary
Blood/Venous No Growth in 48 hours- Final report to follow
06/20/24 08:25 Blood Culture - Preliminary
Blood/Venous Escherichia coli
Gram Stain - Preliminary
06/20/24 08:17 Urine Culture - Final
Urine Escherichia coli
06/21/24 04:51 MRSA Screen - Final
Nose No Methicillin Resistant Staphylococcus aureus isolated.
Blood Culture Preliminary 06/23/24-822
Positive for Escherichia coli by Nanosphere Verigene
Nucleic Acid Methodology.
Organism 1 Escherichia coli
1. Escherichia coli
M.I.C. RX
--------- ---
Amoxicillin/Potas. Clavulanate 16/8 I
Ampicillin >16 R
Ampicillin/Sulbactam 16/8 I
Aztreonam <=4 S
Cefazolin <=2 S <-----
Ertapenem <=0.5 S
Ciprofloxacin >2 R
Gentamicin >8 R
Meropenem <=1 S
Piperacillin/Tazobactam <=8 S
Tetracycline >8 R
Tobramycin >8 R
Trimethoprim/Sulfamethoxazole >2/38 R
Care Review
Plan reviewed with: Physician (Hospitalist)
[2024-06-27 11:15] LABS: Hematocrit 42.2 % (39.0-52.0); Mean Corp Hgb Conc. 33.2 g/dL (33.0-37.0); Mean Corpuscular Hgb 29.3 pg (27.0-31.0); Mean Corpuscular Volume 88.3 fL (80.0-94.0); Mean Platelet Volume 9.4 fL (7.4-10.4); Platelet Count 271 10^3/uL (130-400); Red Blood Cell Count 4.78 10^6/uL (4.70-6.10); Red Cell Dist. Width 15.4 % (11.5-14.5); White Blood Cell Count 5.1 10^3/uL (4.8-10.8)
--- NOTE | 2024-06-27 11:50 | CM ---
Addendum entered by Cindy Santos RN 06/27/24 13:06:
Per [facility], patient is accepted for today. RN and attending updated.
Original Note:
Reviewed the chart notes and spoke with nurse Ade with [facility] [phone] regarding infusion. Ade was provided with [facility] admissions phone number and she will reach out to them to confirm infusion status. Ade will reach out to her
pharmacy. Awaiting confirmation from [facility] that the patient is accepted today.
Plan: Discharge to [facility] when medically stable.
Call report to: [phone]
Fax report to: [phone]
Medical necessity and transport forms on chart.
[2024-06-27 15:00] VITALS: BP 134/88
--- NOTE | 2024-06-27 16:05 | PTCARENOTE ---
Patient discharged to [facility], transported by [facility]. This RN called report to [place] at facility, patient's IV removed by this RN. Patient dressed and gathered belongings independently in room, assisted onto stretcher with help of EMS
team.
== END 2024-06-27 16:05 | DRG 871 ==
LOC: 2 NORTH 12:31
PROVIDERS: Physician Assistant; ADMITTING PHYSICIAN Internal Medicine; ATTENDING PHYSICIAN Internal Medicine; CONSULT PHYSICIAN Internal Medicine Critical Care Medicine; CONSULT PHYSICIAN Internal Medicine Infectious Disease; EMERGENCY PHYSICIAN Student in an Organized Health Care Education/Training Program; FAMILY PHYSICIAN Family Medicine
DX: A41.51 Sepsis due to Escherichia coli [E. coli] (principal); R65.21 Severe sepsis with septic shock; N39.0 Urinary tract infection, site not specified; E87.20 Acidosis, unspecified; E87.1 Hypo-osmolality and hyponatremia; Z16.24 Resistance to multiple antibiotics; G61.81 Chronic inflammatory demyelinating polyneuritis; K50.90 Crohn's disease, unspecified, without complications; E78.00 Pure hypercholesterolemia, unspecified; E03.9 Hypothyroidism, unspecified; D72.819 Decreased white blood cell count, unspecified; J44.9 Chronic obstructive pulmonary disease, unspecified; B18.2 Chronic viral hepatitis C; D69.6 Thrombocytopenia, unspecified; J38.01 Paralysis of vocal cords and larynx, unilateral; F32.A Depression, unspecified; F41.9 Anxiety disorder, unspecified; I25.10 Atherosclerotic heart disease of native coronary artery without angina pectoris; I48.0 Paroxysmal atrial fibrillation; R29.6 Repeated falls; R32 Unspecified urinary incontinence; R74.01 Elevation of levels of liver transaminase levels; R13.12 Dysphagia, oropharyngeal phase; I25.2 Old myocardial infarction; Z11.52 Encounter for screening for COVID-19; Z90.79 Acquired absence of other genital organ(s); Z86.19 Personal history of other infectious and parasitic diseases; Z87.891 Personal history of nicotine dependence; Z86.73 Personal history of transient ischemic attack (TIA), and cerebral infarction without residual deficits; Z86.711 Personal history of pulmonary embolism; Z85.46 Personal history of malignant neoplasm of prostate; Z79.890 Hormone replacement therapy; Z79.899 Other long term (current) drug therapy; Z79.52 Long term (current) use of systemic steroids
CPT/HCPCS: 70450; 71046; 76770; 80048; 80053; 81003; 81015; 82248; 82533; 83605; 83735; 84100; 85025; 85027; 85610; 85730; 87040; 87070; 87086; 87088; 87149; 87186; 87205; 87811; 92526; 92610; 96361; 96374; 97110; 97116; 97163; 97167; 97530; 97535; 99285

== ENCOUNTER → 2024-07-01 17:16 | Outpatient (REF) | payer OTHER, MEDICARE, SELFPAY ==
[2024-07-01 18:45] LABS: % Basophils 0.8 % (0-2); % Eosinophils 0.8 % (0-6); % Immature Granulocytes 0.2 % (0-0.5); % Lymphocytes 21.1 % (20.5-51.1); % Neutrophils 67.1 % (42.2-75.2); Absolute Monocytes 0.5 10^3/uL (0.1-0.6); Absolute Neutrophils 3.2 10^3/uL (1.4-6.5); Hematocrit 39.9 % (39.0-52.0); Hemoglobin 12.6 g/dL (13.0-18.0); Mean Corp Hgb Conc. 31.6 g/dL (33.0-37.0); Mean Corpuscular Hgb 28.6 pg (27.0-31.0); Mean Corpuscular Volume 90.5 fL (80.0-94.0); Mean Platelet Volume 9.3 fL (7.4-10.4); Nucleated Red Blood Cells % 0 % (-); Platelet Count 218 10^3/uL (130-400); Red Blood Cell Count 4.41 10^6/uL (4.70-6.10); Red Cell Dist. Width 16.6 % (11.5-14.5); White Blood Cell Count 4.8 10^3/uL (4.8-10.8)
[2024-07-01 18:51] LABS: Blood Urea Nitrogen 13 mg/dl (9-20); Calcium 8.6 mg/dl (8.4-10.2); Carbon Dioxide 29 mmol/L (22-30); Chloride 103 mmol/L (98-107); Glucose 73 mg/dl (70-99); Potassium 3.9 mmol/L (3.5-5.1); Sodium 140 mmol/L (135-145); eGFR > 60.00
== END ==
LOC: OLABP 17:16
PROVIDERS: ATTENDING PHYSICIAN Family Medicine
DX: F41.9 Anxiety disorder, unspecified (principal); G47.00 Insomnia, unspecified; E03.9 Hypothyroidism, unspecified; E46 Unspecified protein-calorie malnutrition; K50.10 Crohn's disease of large intestine without complications; K57.30 Diverticulosis of large intestine without perforation or abscess without bleeding; K62.1 Rectal polyp; F32.9 Major depressive disorder, single episode, unspecified; J44.9 Chronic obstructive pulmonary disease, unspecified
CPT/HCPCS: 36415; 80048; 85025

== ENCOUNTER 2024-07-11 20:44 | Emergency (ER) | payer MEDICARE, OTHER, SELFPAY ==
[2024-07-11 20:51] VITALS: BP 117/74
[2024-07-11 21:00] VITALS: BP 119/72
[2024-07-11 21:05] VITALS: BMI 21.2
[2024-07-11 22:00] VITALS: BP 131/86
--- NOTE | 2024-07-11 22:09 | ED.GENMED ---
History of Present Illness
General
Chief Complaint: Fall
Source: patient, records, family and ambulance crew
Exam Limitations: none
Time Seen by Provider: 07/11/24 22:01
Nursing documentation reviewed up to this point in time: agreed with
History of Present Illness
History of Present Illness:
73-year-old male with history as documented presents to the emergency room with his daughter for evaluation after a fall. Patient is at short-term rehab after recent hospitalization for sepsis and UTI. Has been progressing in his rehab and had a
busy day today and was tired. Just prior to arrival here he was making his way to the bathroom and lost his balance in the bathroom and fell and hit his head on the toilet. Did not lose consciousness and was able to get himself up. Staff at rehab
called EMS to bring him to the hospital. Patient says that he has a very mild headache but denies any other complaints. He denies any neck pain. Denies any chest or rib pain. Denies any back pain. He denies any pain in his extremities. Denies
any numbness or weakness in his extremities. He is on aspirin but no other blood thinners.
Past History
Past History
ED Past Medical History: Arrthythmia (Atrial fibrillation on low-dose aspirin), CAD, Cancer (Prostate), Hypercholesterolemia, SC, Hypothyroidism, Psychiatric (Anxiety, Depression), Other (Hepatitis C, Colitis, Crohns) and Other (Cardiomyopathy, PE)
ED Past Surgical History: Appendectomy, Urological (prostatectomy) and Other (Vocal cord repair)
Social History
Tobacco: Former smoker
Alcohol: None
Drug: Former user
Personal:
Living: with family
Employment: Retired
Review of Systems
Review of Systems
All Other Systems: ROS reviewed and negative except as documented in HPI and ROS
Respiratory: Denies trouble breathing
Cardiac: Denies chest pain
ABD/GI: Denies abdominal pain or nausea
: Denies flank pain
Musculoskeletal: Denies joint pain, neck pain or back pain
Neurological: Reports headache; Denies dizzy, weakness or numbness
Phy Exam
Physical Exam
Physical Exam:
General: Awake, alert; no acute distress
Head: Normocephalic, tiny abrasion frontal scalp, no hematoma no lacerations
Eyes: Conjunctiva normal, pupils equal round and reactive to light bilaterally
Throat: Airway intact, handling secretions
Neck: Trachea midline, no cervical spine tenderness, good range of motion without pain
Lungs: Clear to auscultation bilaterally, no wheezing, rales, rhonchi
Heart: Regular rate and rhythm, no murmurs, gallops, or rubs; no chest wall tenderness, no ecchymosis or crepitus
Abd: Soft, non distended, nontender
Neuro: Cranial nerves grossly intact, speech fluid
Extremities: Scattered old appearing bruises on the arms and the legs but no signs of acute trauma; no edema in extremities, equal pulses in all extremities; he has no reproducible tenderness in the extremities and moves them through comfortable
range of motion with no pain
Scores
Heart Failure Risk
Heart Failure Risk Score: Not Applicable
Heart Score for Chest Pain Patients
STEMI patient?: Not applicable
Withdrawal Assessment of Alcohol
Withdrawal Assessment Completed?: Not applicable
Course
Orders/Labs/Results
Orders:
Orders
07/11/24 22:08
CT Head W/o Iv Contrast Urgent
Comment:
Reason For Exam: fall with frontal trauma, PEREZ
Acetaminophen [Tylenol] 650 mg PO NOW STA
Vital Signs
Initial and Last Documented VS:
Initial Vital Signs
Temp Pulse Resp BP Pulse Ox
36.9 C 78 18 117/74 94
07/11/24 20:51 07/11/24 20:51 07/11/24 20:51 07/11/24 20:51 07/11/24 20:51
Last Documented Vital Signs
Temp Pulse Resp BP Pulse Ox
36.9 C 73 20 143/92 97
07/11/24 20:51 07/11/24 23:01 07/12/24 00:00 07/11/24 23:00 07/11/24 23:15
MDM/Problems Addressed
Differential Diagnosis Includes:
Traumatic head injury�concussion, scalp contusion, intracranial hemorrhage
MDM/Problems Addressed:
73-year-old male presents to the emergency room for evaluation after mechanical fall with head trauma. No loss of consciousness, no other injuries. He has a very mild headache and a tiny abrasion to the frontal scalp, no other signs of acute
trauma and no other complaints. Vitals and exam as above. Check CT head. Tylenol for headache. Reassess after the above.
CT head negative for any acute pathology. Patient well-appearing, headache improved with Tylenol. Stable for discharge. Spoke about return precautions all questions answered.
*Radiology
Radiology exam reviewed: radiology read reviewed
*Pulse Oximetry
Patient hypoxic: no
*Critical Care Note
Total Time (30-74mins, 75-104mins- exclusive of procedures): Not Applicable
Data Reviewed
Review of Other/Old Records Reveals: Labs, Records and Discharge Summary
Source: patient, records, family and ambulance crew
ED Attending Note
-
Portions of this chart may have been created with voice recognition software.� Occasional wrong word or��sound alike� substitutions may have occurred due to the inherent limitations of voice recognition software.
Discharge Plan
Departure
Patient Disposition: Home (Routine Discharge)
Date of Disposition: 07/12/24
Time of Disposition: 00:26
Patient with high blood pressure during this ER visit?: No
Discharge Problem:
Fall, Minor head injury
Instructions: Preventing falls in adults
Prescriptions:
No Action
atorvastatin 20 MG tablet
20 mg PO DAILY Qty: 0
acetaminophen 325 MG tablet
650 mg PO Q4HPRN PRN (Reason: pain/PEREZ/fever >100.4 ) Qty: 1 0RF
levothyroxine 88 MCG tablet
88 mcg PO DAILY
fluoxetine 40 MG capsule
40 mg PO DAILY
sulfasalazine 500 MG tablet
500 mg PO BID
prednisone 10 mg Tablet
10 mg PO DAILY
meloxicam 15 mg Tablet
15 mg PO DAILY
alendronate 70 mg Tablet
70 mg PO DIALLO
carvedilol 3.125 mg Tablet
3.125 mg PO BID
magnesium oxide 400 mg (241.3 mg magnesium) Tablet
400 mg PO DAILY
diphenhydramine HCl [Benadryl] 25 mg Capsule
25 mg PO HSPRN PRN (Reason: fever)
aripiprazole 10 mg Tablet
10 mg PO DAILY
bupropion HCl 300 mg Tablet Extended Release 24 Hr
300 mg PO DAILY
calcium citrate-vitamin D3 [Citracal + D Maximum] 315 mg-6.25 mcg (250 unit) Tablet
1 tab PO DAILY
Fleet Enema 19-7 gram/118 mL Enema
118 ml MI ONCE PRN (Reason: constipation )
Ducodyl (bisacodyl)
10 mg miscellaneous DAILY PRN (Reason: constipation)
Rx Instructions:
rectal suppository
lidocaine 4 % Adhesive Patch,Medicated
1 patch TOPICAL BID
magnesium hydroxide [Milk of Magnesia] 400 mg/5 mL Suspension
400 mg PO DAILY PRN (Reason: constipation )
aspirin 81 mg Tablet,Chewable
81 mg PO DAILY
Patient Comments:
Restarted 07/07/2024
Referrals:
Wale Posada MD [Family Provider] - Call in 1-3 days for appt
Activity Restrictions/Additional Instructions:
Thank you for visiting the Emergency Department at [facility].
1. Please schedule a follow up appointment as directed. Call first thing tomorrow morning to make an appointment.
2. If indicated, please take your medications as instructed and indicated on discharge paperwork.
3. If any of your symptoms do not improve, or persist, or become more severe within 6-12 hours, please return to the emergency department for further care.
4. Please return to the emergency department if you develop a headache, neck pain/stiffness, fever greater than 100.4F, chest pain, shortness of breath, persistent nausea, vomiting, slurred speech, difficulty walking, numbness/tingling, weakness,
signs of infection or any other symptoms that are worrisome to you.
Please call [phone] if you have any questions.
Interventions
Interventions:
*Risk Screen - Suicide Last Done: 07/11/24 20:47
*General Assessment Last Done: 07/11/24 20:47
*Neglect/Abuse Screening Last Done: 07/11/24 20:47
ED- Fall Risk Assessment Last Done: 07/11/24 21:06
*ED COVID-19 Vaccine History Last Done: 07/11/24 20:47
ED-Musculoskeletal Assessment Last Done: 07/11/24 21:06
ED- Neurological Assessment Last Done: 07/11/24 21:06
ED-Skin Assessment Last Done: 07/11/24 21:06
Discharge Date and Time
Print Language: GABONESE
[2024-07-11] MEDS: TYLENOL 650 MG PO (22:21)
[2024-07-11 23:00] VITALS: BP 143/92
[2024-07-12 05:41] VITALS: BP 141/94
== END 2024-07-12 05:49 | disposition home or self-care (01) ==
LOC: EMR 20:44
PROVIDERS: EMERGENCY PHYSICIAN Emergency Medicine; FAMILY PHYSICIAN Family Medicine
DX: S09.90XA Unspecified injury of head, initial encounter (principal); S00.01XA Abrasion of scalp, initial encounter; R51.9 Headache, unspecified; W01.198A Fall on same level from slipping, tripping and stumbling with subsequent striking against other object, initial encounter; Y92.89 Other specified places as the place of occurrence of the external cause; I48.91 Unspecified atrial fibrillation; I25.10 Atherosclerotic heart disease of native coronary artery without angina pectoris; E03.9 Hypothyroidism, unspecified; E78.00 Pure hypercholesterolemia, unspecified; F32.A Depression, unspecified; F41.9 Anxiety disorder, unspecified; K50.90 Crohn's disease, unspecified, without complications; I42.9 Cardiomyopathy, unspecified; K52.9 Noninfective gastroenteritis and colitis, unspecified; I25.2 Old myocardial infarction; Z79.82 Long term (current) use of aspirin; Z85.46 Personal history of malignant neoplasm of prostate; Z87.891 Personal history of nicotine dependence; Z87.440 Personal history of urinary (tract) infections; Z86.711 Personal history of pulmonary embolism; Z86.19 Personal history of other infectious and parasitic diseases; Z90.79 Acquired absence of other genital organ(s)
CPT/HCPCS: 99284; 70450

== ENCOUNTER → 2024-08-04 09:53 | Outpatient (REF) | payer MEDICARE, OTHER, SELFPAY | LOC: RST 09:53 | PROVIDERS: ATTENDING PHYSICIAN Family Medicine | DX: R13.10 Dysphagia, unspecified (principal) | CPT/HCPCS: 74230; 92611 ==

== ENCOUNTER 2024-08-30 14:30 | Outpatient (RCR) | payer MEDICARE, OTHER, SELFPAY | END 2024-08-30 23:59 | disposition home or self-care (01) | LOC: RST 14:30 | PROVIDERS: ATTENDING PHYSICIAN Family Medicine | DX: R13.10 Dysphagia, unspecified (principal); R13.12 Dysphagia, oropharyngeal phase | CPT/HCPCS: 92526; 92610 ==

== ENCOUNTER 2024-09-30 10:21 | Outpatient (RCR) | payer MEDICARE, OTHER, SELFPAY | END 2024-09-30 23:59 | disposition home or self-care (01) | LOC: RST 10:21 | PROVIDERS: ATTENDING PHYSICIAN Family Medicine | DX: R13.10 Dysphagia, unspecified (principal); R13.12 Dysphagia, oropharyngeal phase | CPT/HCPCS: 92526 ==

== ENCOUNTER → 2024-10-04 07:54 | Outpatient (REF) | payer MEDICARE, OTHER, SELFPAY | LOC: RAD 07:54 | PROVIDERS: ATTENDING PHYSICIAN Nurse Practitioner Adult Health; FAMILY PHYSICIAN Family Medicine | DX: R13.10 Dysphagia, unspecified (principal); J44.9 Chronic obstructive pulmonary disease, unspecified; J98.4 Other disorders of lung | CPT/HCPCS: 71250; 74230; 92611 ==

== ENCOUNTER 2024-12-07 15:21 | Emergency (ER) | payer MEDICARE, OTHER, SELFPAY ==
[2024-12-07 15:26] VITALS: BP 125/81
--- NOTE | 2024-12-07 15:39 | ED.GENMED ---
History of Present Illness
General
Chief Complaint: Fall
Source: patient
Time Seen by Provider: 12/07/24 15:34
History of Present Illness
History of Present Illness:
74-year-old male presents to the emergency room complaining of a fall striking his head. No loss of consciousness. Patient denies taking any oral anticoagulants. Patient states he fell because he got his legs tangled up and he tripped. Patient
complaining of some pain to his right forehead. No neck pain. No double vision.
Past History
Past History
ED Past Medical History: Arrthythmia (Atrial fibrillation on low-dose aspirin), CAD, Cancer (Prostate), Hypercholesterolemia, [place], Hypothyroidism, Psychiatric (Anxiety, Depression), Other (Hepatitis C, Colitis, Crohns) and Other (Cardiomyopathy, PE)
ED Past Surgical History: Appendectomy, Urological (prostatectomy) and Other (Vocal cord repair)
Social History
Tobacco: Former smoker
Alcohol: None
Drug: Former user
Personal:
Living: with family
Employment: Retired
Phy Exam
Physical Exam
Physical Exam:
General: Awake, Alert, Oriented X3. No acute distress.
Vitals: unremarkable
Head: Right forehead hematoma with some ecchymosis noted around the right orbit
Eyes: Pupils equal, EOMI
Throat: Airway intact, no exudates
Neck: Trachea midline, no significant tenderness palpation
Lungs: Clear and equal b/l
Heart: Regular rate, no murmurs
Abd: Soft, Nontender, No pulsatile mass
Neuro: Cranial nerves intact, muscle strength equal bilaterally
Skin: Warm, dry, no rash
Extremities: pulses equal b/l, no edema
Course
Orders/Labs/Results
Orders:
Orders
12/07/24 15:[address] [CT Head W/o Iv Contrast] Urgent
Comment:
Reason For Exam: fall injury
12/07/24 15:38
CT Cervical Spine W/o Iv Contr Urgent
Comment:
Reason For Exam: neck pain s/p fall
Vital Signs
Initial and Last Documented VS:
Initial Vital Signs
Temp Pulse Resp BP Pulse Ox
98.1 F 64 16 125/81 95
12/07/24 15:26 12/07/24 15:26 12/07/24 15:26 12/07/24 15:26 12/07/24 15:26
Last Documented Vital Signs
Temp Pulse Resp BP Pulse Ox
98.1 F 64 16 125/81 95
12/07/24 15:26 12/07/24 15:26 12/07/24 15:26 12/07/24 15:26 12/07/24 15:26
MDM/Problems Addressed
Differential Diagnosis Includes:
Subdural, head contusion, subarachnoid hemorrhage
MDM/Problems Addressed:
Patient's head CT shows no acute intracranial abnormalities. Does have a cephalhematoma. C-spine shows no fractures. Patient feels well. Stable for discharge home.
*Radiology
Radiology exam reviewed: radiology read reviewed
*Pulse Oximetry
Patient hypoxic: no
*Critical Care Note
Total Time (30-74mins, 75-104mins- exclusive of procedures): Not Applicable
ED Attending Note
-
Portions of this chart may have been created with voice recognition software.� Occasional wrong word or��sound alike� substitutions may have occurred due to the inherent limitations of voice recognition software.
Discharge Plan
Departure
Patient Disposition: Home (Routine Discharge)
Date of Disposition: 12/07/24
Time of Disposition: 18:24
Patient with high blood pressure during this ER visit?: No
Condition: Good
Discharge Problem:
Head injury
Instructions: Head Injury in Adults (DC)
Prescriptions:
No Action
atorvastatin 20 MG tablet
20 mg PO DAILY Qty: 0
acetaminophen 325 MG tablet
650 mg PO Q4HPRN PRN (Reason: pain/PEREZ/fever >100.4 ) Qty: 1 0RF
levothyroxine 88 MCG tablet
88 mcg PO DAILY
fluoxetine 40 MG capsule
40 mg PO DAILY
sulfasalazine 500 MG tablet
500 mg PO BID
prednisone 10 mg Tablet
10 mg PO DAILY
meloxicam 15 mg Tablet
15 mg PO DAILY
alendronate 70 mg Tablet
70 mg PO DIALLO
carvedilol 3.125 mg Tablet
3.125 mg PO BID
magnesium oxide 400 mg (241.3 mg magnesium) Tablet
400 mg PO DAILY
diphenhydramine HCl [Benadryl] 25 mg Capsule
25 mg PO HSPRN PRN (Reason: fever)
aripiprazole 10 mg Tablet
10 mg PO DAILY
bupropion HCl 300 mg Tablet Extended Release 24 Hr
300 mg PO DAILY
calcium citrate-vitamin D3 [Citracal + D Maximum] 315 mg-6.25 mcg (250 unit) Tablet
1 tab PO DAILY
Fleet Enema 19-7 gram/118 mL Enema
118 ml MO ONCE PRN (Reason: constipation )
Ducodyl (bisacodyl)
10 mg miscellaneous DAILY PRN (Reason: constipation)
Rx Instructions:
rectal suppository
lidocaine 4 % Adhesive Patch,Medicated
1 patch TOPICAL BID
magnesium hydroxide [Milk of Magnesia] 400 mg/5 mL Suspension
400 mg PO DAILY PRN (Reason: constipation )
aspirin 81 mg Tablet,Chewable
81 mg PO DAILY
Patient Comments:
Restarted 07/07/2024
Referrals:
Josee Barnett MD [Family Provider] -
Interventions
Interventions:
*Risk Screen - Suicide Last Done: 12/07/24 15:26
*Neglect/Abuse Screening Last Done: 12/07/24 15:26
*Nursing Disposition Last Done: 12/07/24 18:30
ED-Musculoskeletal Assessment Last Done: 12/07/24 15:50
ED- Neurological Assessment Last Done: 12/07/24 15:50
ED-Skin Assessment Last Done: 12/07/24 15:50
Discharge Date and Time
Discharge Date/Time: 12/07/24 18:30
Print Language: MONEGASQUE
== END 2024-12-07 18:30 | disposition home or self-care (01) ==
LOC: EMR 15:21
PROVIDERS: EMERGENCY PHYSICIAN Emergency Medicine; FAMILY PHYSICIAN Family Medicine
DX: S09.90XA Unspecified injury of head, initial encounter (principal); W01.0XXA Fall on same level from slipping, tripping and stumbling without subsequent striking against object, initial encounter; I48.91 Unspecified atrial fibrillation; I25.10 Atherosclerotic heart disease of native coronary artery without angina pectoris; E78.00 Pure hypercholesterolemia, unspecified; E03.9 Hypothyroidism, unspecified; F41.8 Other specified anxiety disorders; I21.9 Acute myocardial infarction, unspecified; K50.90 Crohn's disease, unspecified, without complications; Z87.891 Personal history of nicotine dependence; Z90.49 Acquired absence of other specified parts of digestive tract; Z90.79 Acquired absence of other genital organ(s)
CPT/HCPCS: 99284; 70450; 72125

== ENCOUNTER → 2025-04-03 08:15 | Outpatient (REF) | payer MEDICARE, OTHER, SELFPAY | LOC: HWRCS 08:15 | PROVIDERS: ATTENDING PHYSICIAN Internal Medicine Cardiovascular Disease; FAMILY PHYSICIAN Family Medicine | DX: I48.0 Paroxysmal atrial fibrillation (principal); I51.81 Takotsubo syndrome | CPT/HCPCS: 93306 ==

== ENCOUNTER → 2025-06-20 12:31 | Outpatient (REF) | payer MEDICARE, OTHER, SELFPAY | LOC: WOUND 12:31 | PROVIDERS: ATTENDING PHYSICIAN Surgery; FAMILY PHYSICIAN Family Medicine | DX: S51.001A Unspecified open wound of right elbow, initial encounter (principal); W19.XXXA Unspecified fall, initial encounter; G61.81 Chronic inflammatory demyelinating polyneuritis; J44.9 Chronic obstructive pulmonary disease, unspecified; K50.10 Crohn's disease of large intestine without complications; Z79.52 Long term (current) use of systemic steroids; I48.0 Paroxysmal atrial fibrillation | CPT/HCPCS: 11042; 99203 ==

== ENCOUNTER 2025-06-30 06:17 | Emergency (ER) | payer MEDICARE, OTHER, SELFPAY ==
[2025-06-30 06:21] VITALS: BP 136/93
--- NOTE | 2025-06-30 07:55 | ED.GENMED ---
History of Present Illness
General
Chief Complaint: Fall
Source: patient and spouse
Exam Limitations: none
Time Seen by Provider: 06/30/25 07:37
Nursing documentation reviewed up to this point in time: agreed with
History of Present Illness
History of Present Illness:
Note:
CHIEF COMPLAINT(S)
Frequent falls and weakness.
HISTORY OF PRESENT ILLNESS
The patient is a 74-year-old male who has recently experienced frequent falls and increased weakness following his regular infusion therapy, which he receives every three weeks. Despite the expectation of feeling stronger post-infusion, he has
become more unstable, leading to concerns of a possible urinary tract infection (UTI), as a similar situation occurred in the past when he had a UTI. His daughter, who is his primary caregiver, reported these symptoms, noting an increase in his
confusion and an unusual heaviness in his breathing.
Two weeks ago, the patient fell, resulting in a necessity for wound care due to injuries sustained from falling into a kitchen handle. The patient also reports weakness in the right leg and pain in the left knee when performing tasks that require
putting his arms up, and when he bends to wipe, he experiences heavier breathing. A recent fall involved him ending up in his laundry basket, although his daughter managed to assist him.
PAST MEDICAL AND SURGICAL HISTORY
Patient receives infusion therapy every three weeks.
ADDITIONAL HISTORY OBTAINED FROM SOURCES OTHER THAN THE PATIENT
Per the patients daughter: She manages his care at home and expressed her concerns regarding the increase in falls and weakness. She is instrumental in his day-to-day management and was present during the evaluation, providing significant history
related to the patients current state.
CHRONIC MEDICAL CONDITIONS SIGNIFICANTLY AFFECTING CARE
The patients chronic condition necessitating infusion therapy was not directly identified in this conversation but is likely significant given the need for frequent infusions.
SOCIAL DETERMINANTS AFFECTING HEALTH
The patients daughter is his primary caregiver, indicating some level of dependency. Financial considerations are a factor, as the daughter mentioned the need to pay taxes and the benefits of paying on time for discounts.
REVIEW OF SYSTEMS
- General: Weakness, confusion, and frequent falls.
- Musculoskeletal: Weakness in the right leg, pain in the left knee.
- Respiratory: Heavier than usual breathing when wiping.
PHYSICAL EXAM
General: Alert, no acute distress.
Skin: Warm, dry.
Head: Normocephalic, atraumatic.
Neck: Supple, trachea midline.
Eye Ears, Nose, Mouth, and Throat: Oral mucosa moist.
Cardiovascular: Normal peripheral perfusion, No edema.
Respiratory: Respirations are non-labored.
Gastrointestinal: Abdomen nondistended.
Back: Normal range of motion, Normal alignment.
Musculoskeletal: Normal ROM, normal strength.
Neurological: Alert and oriented to person, place, time, and situation, No focal neurological deficit observed.
Psychiatric: Cooperative, appropriate mood & affect.
PROBLEM LIST
Acute:
- Frequent falls
- Increased weakness
- Unstable gait
- Increased confusion and altered mental status
PLAN
- Perform blood tests and a urinalysis to check for a potential UTI.
- Conduct a CT scan of the head due to the recent falls and increased confusion.
- Coordinate with wound care regarding recent injuries from falls.
DIFFERENTIAL DIAGNOSIS
The Differential Diagnosis includes, in no particular order and is not limited to:
1. Urinary tract infection
2. Dehydration
3. Electrolyte imbalance
4. Medication side effects
5. Cerebral vascular accident
6. Cardiac arrhythmia
7. Orthostatic hypotension
8. Anemia
9. Hypoglycemia
10. Neurological disorder (e.g., Parkinsons disease)
CARE-UPDATE
06/30/25 - 09:54
The patient, a 74-year-old male, has experienced multiple falls but no injuries were identified in the workup. There are no indications of a urinary tract infection. The patient reports feeling well and appears stable. He is deemed suitable for
discharge.
Disposition:
SUMMARY OF ENCOUNTER
The patient, a 74-year-old male, was seen in the emergency department due to frequent falls and increased weakness. The assessment considered possible urinary tract infection and other differential diagnoses including dehydration, electrolyte
imbalance, medication side effects, cerebrovascular accident, cardiac arrhythmia, orthostatic hypotension, anemia, hypoglycemia, and neurological disorders like Parkinsons disease. After evaluation, no injuries were identified, nor were there
indications of a urinary tract infection. The patient expressed feeling well and appeared stable during the visit, thus deemed suitable for discharge with stable vital signs.
DISPOSITION
Discharge
ASSESSMENT
Patient presented with frequent falls and increased weakness. Acute conditions like UTIs were ruled out, symptoms appear managed, and the patient is stable for discharge.
PLAN
The plan is to proceed with discharge as patient showed stability, with additional resources offered for supportive care at home.
MEDICAL DECISION MAKING
- Complexity of Data Reviewed: Chronic conditions affecting care include the need for frequent infusion therapy. The differential diagnosis includes urinary tract infection, dehydration, electrolyte imbalance, medication side effects,
cerebrovascular accident, cardiac arrhythmia, orthostatic hypotension, anemia, hypoglycemia, and a neurological disorder like Parkinsons disease.
- Data:
Category 1:
Clinical information was obtained from an independent historian, the patients daughter.
External record reviewed.
Category 2:
My independent review of the CT scan of the head did not reveal any acute life-threatening process.
Category 3:
Discussion of management with the patients daughter, concerning home care and follow-up.
- Risk:
Consideration of Admission/Observation: Escalation of care including admission/observation was considered given the complexity and risk of the patients presenting complaint, exam findings, and/or their underlying comorbidities. However, ultimately,
I feel the patient is safe for outpatient management with close follow-up. Reasoning: Work-up reassuring, does not reveal any acute life or organ-threatening processes, patients symptoms well controlled upon re-evaluation, reexamination is
reassuring, vitals are stable, patient agreeable with discharge, reliable for follow-up. Care significantly affected by Social Determinants of Health, as the patients daughter manages his care and financial considerations are a factor.
DIAGNOSIS
Z91.81 - History of falling
R53.81 - Other malaise and fatigue
M62.81 - Muscle weakness (generalized)
Past History
Past History
ED Past Medical History: Arrthythmia (Atrial fibrillation on low-dose aspirin), CAD, Cancer (Prostate), Hypercholesterolemia, [place], Hypothyroidism, Psychiatric (Anxiety, Depression), Other (Hepatitis C, Colitis, Crohns) and Other (Cardiomyopathy, PE)
ED Past Surgical History: Appendectomy, Urological (prostatectomy) and Other (Vocal cord repair)
Social History
Tobacco: Former smoker
Alcohol: None
Drug: Former user
Personal:
Living: with family
Employment: Retired
Phy Exam
Physical Exam
Physical Exam:
.
Course
Orders/Labs/Results
Orders:
Orders
06/30/25 07:54
IV Insert/Care/Rem.- Treatment PRN
06/30/25 07:55
CT Head W/o Iv Contrast Urgent
Comment:
Reason For Exam: fall
06/30/25 08:06
Complete Blood Count/With Diff Urgent
Comprehensive Metabolic Panel Urgent
Magnesium Urgent
Urinalysis Reflex To Culture Urgent
Date Specimen was Collected: 06/30/25
Time Specimen was Collected: 08:03
Urine Microscopic Reflex Cult Urgent
Abnormal Lab Results
06/30/25
08:06
MCHC 32.9 L g/dL
(33.0-37.0)
RDW 15.3 H %
(11.5-14.5)
Absolute Lymphs (auto) 0.6 L 10^3/uL
(1.2-3.4)
Neutrophils % 83.2 H %
(42.2-75.2)
Lymphocytes % 8.3 L %
(20.5-51.1)
BUN 25 H mg/dl
(9-20)
Ur Occult Blood Reflex 4+ A
(Negative)
Urine Bacteria (Reflex) Few A
(Negative)
06/30/25 08:06
06/30/25 08:06
Vital Signs
Initial and Last Documented VS:
Initial Vital Signs
Temp Pulse Resp BP Pulse Ox
97.9 F 92 18 136/93 92
06/30/25 06:21 06/30/25 06:21 06/30/25 06:21 06/30/25 06:21 06/30/25 06:21
Last Documented Vital Signs
Temp Pulse Resp BP Pulse Ox
97.9 F 92 18 136/93 92
06/30/25 06:21 06/30/25 06:21 06/30/25 06:21 06/30/25 06:21 06/30/25 07:55
*Pulse Oximetry
SaO2: 92
Oxygen Mode of Delivery: Room air
Patient hypoxic: no
*Critical Care Note
Total Time (30-74mins, 75-104mins- exclusive of procedures): Not Applicable
ED Attending Note
-
Portions of this chart may have been created with voice recognition software.� Occasional wrong word or��sound alike� substitutions may have occurred due to the inherent limitations of voice recognition software.
Discharge Plan
Departure
Patient Disposition: Home (Routine Discharge)
Date of Disposition: 06/30/25
Time of Disposition: 09:45
Patient with high blood pressure during this ER visit?: Yes
Condition: Good
Discharge Problem:
Fall, Chronic inflammatory demyelinating polyneuropathy
Instructions: Preventing falls in adults, BLOOD PRESSURE
Prescriptions:
No Action
atorvastatin 20 MG tablet
20 mg PO DAILY Qty: 0
acetaminophen 325 MG tablet
650 mg PO Q4HPRN PRN (Reason: pain/PEREZ/fever >100.4 ) Qty: 1 0RF
levothyroxine 88 MCG tablet
88 mcg PO DAILY
fluoxetine 40 MG capsule
40 mg PO DAILY
sulfasalazine 500 MG tablet
500 mg PO BID
prednisone 10 mg Tablet
10 mg PO DAILY
meloxicam 15 mg Tablet
15 mg PO DAILY
alendronate 70 mg Tablet
70 mg PO DIALLO
carvedilol 3.125 mg Tablet
3.125 mg PO BID
magnesium oxide 400 mg (241.3 mg magnesium) Tablet
400 mg PO DAILY
diphenhydramine HCl [Benadryl] 25 mg Capsule
25 mg PO HSPRN PRN (Reason: fever)
aripiprazole 10 mg Tablet
10 mg PO DAILY
bupropion HCl 300 mg Tablet Extended Release 24 Hr
300 mg PO DAILY
calcium citrate-vitamin D3 [Citracal + D Maximum] 315 mg-6.25 mcg (250 unit) Tablet
1 tab PO DAILY
Fleet Enema 19-7 gram/118 mL Enema
118 ml CO ONCE PRN (Reason: constipation )
Ducodyl (bisacodyl)
10 mg miscellaneous DAILY PRN (Reason: constipation)
Rx Instructions:
rectal suppository
lidocaine 4 % Adhesive Patch,Medicated
1 patch TOPICAL BID
magnesium hydroxide [Milk of Magnesia] 400 mg/5 mL Suspension
400 mg PO DAILY PRN (Reason: constipation )
aspirin 81 mg Tablet,Chewable
81 mg PO DAILY
Patient Comments:
Restarted 07/07/2024
Referrals:
Josee Barnett MD [Family Provider, Family Practice]
Activity Restrictions/Additional Instructions:
Follow up with primary care. Return for any concerns.
Interventions
Interventions:
*Risk Screen - Suicide Last Done: 06/30/25 06:21
*General Assessment Last Done: 06/30/25 06:21
*Neglect/Abuse Screening Last Done: 06/30/25 06:21
*ED- Fall Risk Assessment Last Done: 06/30/25 10:08
*ED COVID-19 Vaccine History Last Done: 06/30/25 10:08
*Nursing Disposition Last Done: 06/30/25 10:08
ED-Musculoskeletal Assessment Last Done: 06/30/25 09:45
ED- Neurological Assessment Last Done: 06/30/25 09:45
ED-Skin Assessment Last Done: 06/30/25 09:45
Discharge Date and Time
Discharge Date/Time: 06/30/25 10:09
Print Language: GREENLAND[place]
[2025-06-30 08:19] LABS: Hematocrit 42.5 % (39.0-52.0); Hemoglobin 14.0 g/dL (13.0-18.0); Mean Corp Hgb Conc. 32.9 g/dL (33.0-37.0); Mean Corpuscular Volume 86.2 fL (80.0-94.0); Nucleated Red Blood Cells % 0 % (-); Platelet Count 161 10^3/uL (130-400); Red Cell Dist. Width 15.3 % (11.5-14.5); Urine Character Slightly Cloudy (Clear)
[2025-06-30 08:41] LABS: ALT (SGPT) 27 U/L (0-50); AST (SGOT) 35 U/L (17-59); Albumin 3.9 g/dl (3.5-5.0); Alkaline Phosphatase 85 U/L (38-126); Blood Urea Nitrogen 25 mg/dl (9-20); Calcium 9.9 mg/dl (8.4-10.2); Carbon Dioxide 27 mmol/L (22-30); Chloride 104 mmol/L (98-107); Glucose 99 mg/dl (70-99); Magnesium 2.0 mg/dl (1.6-2.3); Potassium 4.0 mmol/L (3.5-5.1); Sodium 138 mmol/L (135-145); Total Protein 8.1 g/dl (6.3-8.2); eGFR > 60.00
[2025-06-30 08:50] LABS: Urine Red Blood Cell 0-2 /HPF (0-2); Urine White Cell 0-2 /HPF (0-5)
== END 2025-06-30 10:09 | disposition home or self-care (01) ==
LOC: EMR 06:17
PROVIDERS: EMERGENCY PHYSICIAN Emergency Medicine; FAMILY PHYSICIAN Family Medicine
DX: G61.81 Chronic inflammatory demyelinating polyneuritis (principal); R29.6 Repeated falls; Z91.81 History of falling; Z87.891 Personal history of nicotine dependence; Z87.440 Personal history of urinary (tract) infections; R03.0 Elevated blood-pressure reading, without diagnosis of hypertension
CPT/HCPCS: 99285; 70450; 80053; 81003; 81015; 83735; 85025

== ENCOUNTER → 2025-07-10 14:45 | Outpatient (REF) | payer MEDICARE, OTHER, SELFPAY | LOC: WOUND 14:45 | PROVIDERS: ATTENDING PHYSICIAN Surgery; FAMILY PHYSICIAN Family Medicine | DX: S51.001A Unspecified open wound of right elbow, initial encounter (principal); G61.81 Chronic inflammatory demyelinating polyneuritis; J44.9 Chronic obstructive pulmonary disease, unspecified; K50.10 Crohn's disease of large intestine without complications; I48.0 Paroxysmal atrial fibrillation; Z79.52 Long term (current) use of systemic steroids; X58.XXXA Exposure to other specified factors, initial encounter | CPT/HCPCS: 11042 ==

== ENCOUNTER → 2025-07-24 09:51 | Outpatient (REF) | payer MEDICARE, OTHER, SELFPAY | LOC: WOUND 09:51 | PROVIDERS: ATTENDING PHYSICIAN Surgery; FAMILY PHYSICIAN Family Medicine | DX: S51.001A Unspecified open wound of right elbow, initial encounter (principal); G61.81 Chronic inflammatory demyelinating polyneuritis; J44.9 Chronic obstructive pulmonary disease, unspecified; K50.10 Crohn's disease of large intestine without complications; I48.0 Paroxysmal atrial fibrillation; W19.XXXA Unspecified fall, initial encounter; Z79.52 Long term (current) use of systemic steroids | CPT/HCPCS: 99212 ==

== ENCOUNTER 2025-09-03 03:27 | Observation (INO) | payer MEDICARE, OTHER, SELFPAY ==
[2025-09-02 20:48] VITALS: BP 111/73
[2025-09-02 21:40] LABS: Hematocrit 44.6 % (39.0-52.0); Hemoglobin 14.2 g/dL (13.0-18.0); Mean Corp Hgb Conc. 31.8 g/dL (33.0-37.0); Mean Corpuscular Volume 88.8 fL (80.0-94.0); Nucleated Red Blood Cells % 0 % (-); Platelet Count 180 10^3/uL (130-400); Red Cell Dist. Width 15.6 % (11.5-14.5)
[2025-09-02 21:48] LABS: ALT (SGPT) 43 U/L (0-50); AST (SGOT) 50 U/L (17-59); Albumin 3.8 g/dl (3.5-5.0); Alkaline Phosphatase 68 U/L (38-126); Blood Urea Nitrogen 21 mg/dl (9-20); Calcium 9.7 mg/dl (8.4-10.2); Carbon Dioxide 25 mmol/L (22-30); Chloride 102 mmol/L (98-107); Glucose 124 mg/dl (70-99); Potassium 4.3 mmol/L (3.5-5.1); Sodium 135 mmol/L (135-145); Total Protein 7.6 g/dl (6.3-8.2); eGFR > 60.00
[2025-09-02 22:00] LABS: Troponin I < 0.012 ng/ml
[2025-09-02 22:42] VITALS: BP 134/71
[2025-09-02 23:00] VITALS: BP 99/57
--- NOTE | 2025-09-02 23:09 | ED.GENMED ---
History of Present Illness
<Sowyma Tesfaye MD, Resident - Last Filed: 09/03/25 16:24>
General
Chief Complaint: Breathing Problem
Source: patient
Time Seen by Provider: 09/02/25 22:42
History of Present Illness
History of Present Illness:
74-year-old male with past medical history of COPD, HFpEF, atrial fibrillation, prostate cancer, chronic inflammatory demyelinating polyneuropathy, prior history of provoked PE due to prolonged immobilization presents to the ER for progressive
shortness of. Over the last 3 days, patient has gotten progressively short of breath. Started with shortness of breath with exertion however no short of breath even sitting playing on his phone according to his daughter. He endorses a dry cough
for the last 3 days, however denies any fevers, chills, upper respiratory tract infection symptoms, weight gain, peripheral extremity swelling, wheezing, pleurisy. Has history of prostate cancer s/p prostatectomy 2011, radiation therapy and now on
zoladex every 6 months due to a recent increase in his PSA. He does endorse prolonged periods of immobilization as he remains sedentary at home with history of CIPD.
Past History
<Sowmya Tesfaye MD, Resident - Last Filed: 09/03/25 16:24>
Past History
ED Past Medical History: Arrthythmia (Atrial fibrillation on low-dose aspirin), CAD, Cancer (Prostate), Hypercholesterolemia, DC, Hypothyroidism, Psychiatric (Anxiety, Depression), Other (Hepatitis C, Colitis, Crohns) and Other (Cardiomyopathy, PE)
ED Past Surgical History: Appendectomy, Urological (prostatectomy) and Other (Vocal cord repair)
Social History
Tobacco: Former smoker
Alcohol: None
Drug: Former user
Personal:
Living: with family
Employment: Retired
Family History
Family History: Other
Review of Systems
<Sowmya Tesfaye MD, Resident - Last Filed: 09/03/25 16:24>
Review of Systems
Allergies reviewed?: Yes
Constitutional: Reports no symptoms
EENT: Reports no symptoms
Respiratory: Reports trouble breathing
Cardiac: Reports no symptoms
ABD/GI: Reports no symptoms
: Reports no symptoms
Musculoskeletal: Reports no symptoms
Skin: Reports no symptoms
Neurological: Reports no symptoms
Phy Exam
<Sowmya Tesfaye MD, Resident - Last Filed: 09/03/25 16:24>
Physical Exam
Physical Exam:
General: Chronically ill but nontoxic.
Head: Atraumatic
Cardiac: Regular S1, S2, no murmurs
Respiratory: No wheezes or rales, decreased breath sounds in all [place]
Abdomen: Soft, nontender, nondistended, normal bowel sounds in all 4 quadrants
Extremities: Peripheral edema, no calf erythema, swelling or tenderness
Neurological: non-focal
Psych: calm
Scores
<Sowmya Tesfaye MD, Resident - Last Filed: 09/03/25 16:24>
Heart Failure Risk
Heart Failure Risk Score: Not Applicable
Course
<Sowmya Tesfaye MD, Resident - Last Filed: 09/03/25 16:24>
Orders/Labs/Results
Orders:
Orders
09/02/25 21:02
Electrocardiogram (*1) Urgent
Reason for Study: Other
Other Reason for Exam: Respiratory Distress
EKG- Treatment ONCE
CR Chest - 2 Views Urgent
Comment:
Reason For Exam: respiratory distress
09/02/25 21:24
Complete Blood Count/With Diff Urgent
Comprehensive Metabolic Panel Urgent
NT-proBNP Urgent
Troponin I Urgent
09/02/25 23:17
COVID-19 Antigen Urgent
Source: Nasal Swab
Influenza A+B Rapid Molecular Urgent
RADHAMES Source: Nasal Swab
Specimen Description:
09/03/25 00:05
CT Chest PE Study Urgent
Reason For Exam: SOB, prior PE
09/03/25 01:54
Azithromycin 500 mg/250 ml [Zithromax Infusion] 500 mg in 250 ml IV NOW
CefTRIAXone [Rocephin] 2,000 mg IV NOW STA
09/03/25 01:57
Sterile Water [Sterile Water For Injection] 20 ml .ROUTE .STK-MED
09/03/25 02:09
Blood Culture Q30M
RADHAMES Source: Blood/Venous
Specimen Description:
Comment: FROM 2 SEPARATE SITES
Blood Culture Q30M
RADHAMES Source: Blood/Venous
Specimen Description:
Comment: FROM 2 SEPARATE SITES
09/03/25 03:03
Procalcitonin Urgent
If negative, will antibiotics be d/c'd or not started: Yes
Does the patient have renal or hepatic impairment?: No
Any recent (w/in 48 hrs) physiologic stress (CPR, rhabdo): No
09/03/25 03:14
Admit/Transfer Patient As Directed
Co-Sign Provider:
Level of Care: Observation services
Assign to:: Telemetry
Physician / Group: Manish
Diagnosis: Dyspnea, COPD
Reason for Telemetry: Arrhythmia
Date to Stop Telemetry: 09/06/25
Time to Stop Telemetry: 11:00
PRN Pain Medication Management As Directed
May give lesser potent ordered pain med per pt: Yes
preference::
Protocol:: Medication orders for pain may be administered in a
manner that supports deferring to patient preference
when the pt is:
- Requesting an ordered lesser potent pain medication.
Least to most potent pain medications are defined
as: acetaminophen < NSAID < tramadol < opioids
(morphine, oxycodone, hydromorphone).
- Requesting a lesser dose of the same medication IF
ORDERED.
- Requesting a less intrusive route of administration
if both routes are prescribed by the provider (PO <
IV).
09/03/25 03:15
Code Status As Directed
Resuscitation Status: Full Code
09/03/25 05:30
Acetaminophen [Tylenol] 650 mg PO Q4HPRN PRN
Albuterol Nebs [Ventolin Nebules] 2.5 mg INH R Q4HPRN PRN
09/03/25 05:30
Echo 2D MMode Doppler [Echo 2D MMode Color/Doppler] Routine
Reason for Study: SOB
Activity As Directed
Activity Level: Ambulate
With Assistance
Bladder Scan As Directed
Follow Bladder Retention/Intermittent Cath Algorithm?: Yes
PRN if no void in __ hours: 6
Frequency: Per Retention Algorithm
If Bladder Scan Result >: 400
then:: Straight cath
EKG with chest pain [ECG as needed] As Directed
ECG as needed for:: Chest Pain
I/O [Intake/ Output] As Directed
Frequency: Per unit guidelines
Straight Cath As Directed
Frequency: Per Retention Algorithm
Additional Instructions: straight cath as needed per acute urinary retention algorithm for 24 hrs
Additional Instructions: for bladder scan greater than 400 mL
Vital Signs As Directed
Frequency: Per unit guidelines
Weight As Directed
Frequency: Daily
Oxygen Therapy [O2 Therapy] [RESP] Routine
Titrate/Wean O2 to maintain O2 sat greater than (%): 94
Ot Eval And Treat Routine
PT Consult [Pt Eval And Treat] Routine
Activity Level: Ambulate
With Assistance
DX Deep Vein Thrombosis Video Routine
09/03/25 06:00
EKG [Electrocardiogram (*1)] IN AM
Reason for Study: Chest Pain
Regular
At Your Request: Full Participation
Does patient need a safe tray?: No
Levothyroxine [Synthroid] 88 mcg PO DAILY @ 0600
09/03/25 06:06
Basic Metabolic Panel IN AM
Complete Blood Count/No Diff IN AM
Troponin I Q6H
09/03/25 08:00
Aripiprazole [Abilify] 10 mg PO DAILY
Aspirin Chewable [Low Strength Aspirin] 81 mg PO DAILY
Atorvastatin [Lipitor] 20 mg PO DAILY
Budesonide [Pulmicort] 0.5 mg INH R BID
Bupropion(24Hr)Extended Releas [WELLBUTRIN XL (24 hour extended release)] 150 mg PO DAILY
Bupropion(24Hr)Extended Releas [WELLBUTRIN XL (24 hour extended release)] 300 mg PO DAILY
Carvedilol [Coreg] 3.125 mg PO BID
Fluoxetine HCl [Prozac] 40 mg PO DAILY
Ipratropium/Albuterol Sulfate [Duoneb] 3 ml INH R QID
Magnesium Oxide 400 mg PO DAILY
Prednisone [Deltasone] 15 mg PO DAILY
Sulfasalazine [Azulfidine] 1,000 mg PO BID
09/03/25 12:19
Troponin I Q6H
09/03/25 18:00
Enoxaparin Sodium [Lovenox] 40 mg SC QPM
09/06/25 11:00
DC Protocol for Telemetry ONCE
Abnormal Lab Results
09/02/25
21:24
MCHC 31.8 L g/dL
(33.0-37.0)
RDW 15.6 H %
(11.5-14.5)
Absolute Lymphs (auto) 1.0 L 10^3/uL
(1.2-3.4)
Lymphocytes % 19.2 L %
(20.5-51.1)
Monocytes % 9.8 H %
(1.7-9.3)
BUN 21 H mg/dl
(9-20)
Glucose 124 H mg/dl
(70-99)
09/02/25 21:24
09/02/25 21:24
Vital Signs
Initial and Last Documented VS:
Initial Vital Signs
Temp Pulse Resp BP Pulse Ox
98.4 F 85 20 111/73 93
09/02/25 20:48 09/02/25 20:48 09/02/25 20:48 09/02/25 20:48 09/02/25 20:48
Last Documented Vital Signs
Temp Pulse Resp BP Pulse Ox
98.3 F 78 19 123/91 94
09/03/25 10:58 09/03/25 13:30 09/03/25 13:30 09/03/25 13:00 09/03/25 13:00
<Shree Gonzalez, DO - Last Filed: 09/03/25 02:00>
Orders/Labs/Results
Orders:
Orders
09/02/25 21:02
Electrocardiogram (*1) Urgent
Reason for Study: Other
Other Reason for Exam: Respiratory Distress
EKG- Treatment ONCE
CR Chest - 2 Views Urgent
Comment:
Reason For Exam: respiratory distress
09/02/25 21:24
Complete Blood Count/With Diff Urgent
Comprehensive Metabolic Panel Urgent
NT-proBNP Urgent
Troponin I Urgent
09/02/25 23:17
COVID-19 Antigen Urgent
Source: Nasal Swab
Influenza A+B Rapid Molecular Urgent
RADHAMES Source: Nasal Swab
Specimen Description:
09/03/25 00:05
CT Chest PE Study Urgent
Reason For Exam: SOB, prior PE
09/03/25 01:54
Azithromycin 500 mg/250 ml [Zithromax Infusion] 500 mg in 250 ml IV NOW
CefTRIAXone [Rocephin] 2,000 mg IV NOW STA
09/03/25 01:57
Sterile Water [Sterile Water For Injection] 20 ml .ROUTE .STK-MED
09/03/25 02:09
Blood Culture Q30M
RADHAMES Source: Blood/Venous
Specimen Description:
Comment: FROM 2 SEPARATE SITES
Blood Culture Q30M
RADHAMES Source: Blood/Venous
Specimen Description:
Comment: FROM 2 SEPARATE SITES
09/03/25 03:03
Procalcitonin Urgent
If negative, will antibiotics be d/c'd or not started: Yes
Does the patient have renal or hepatic impairment?: No
Any recent (w/in 48 hrs) physiologic stress (CPR, rhabdo): No
09/03/25 03:14
Admit/Transfer Patient As Directed
Co-Sign Provider:
Level of Care: Observation services
Assign to:: Telemetry
Physician / Group: Manish
Diagnosis: Dyspnea, COPD
Reason for Telemetry: Arrhythmia
Date to Stop Telemetry: 09/06/25
Time to Stop Telemetry: 11:00
PRN Pain Medication Management As Directed
May give lesser potent ordered pain med per pt: Yes
preference::
Protocol:: Medication orders for pain may be administered in a
manner that supports deferring to patient preference
when the pt is:
- Requesting an ordered lesser potent pain medication.
Least to most potent pain medications are defined
as: acetaminophen < NSAID < tramadol < opioids
(morphine, oxycodone, hydromorphone).
- Requesting a lesser dose of the same medication IF
ORDERED.
- Requesting a less intrusive route of administration
if both routes are prescribed by the provider (PO <
IV).
09/03/25 03:15
Code Status As Directed
Resuscitation Status: Full Code
09/03/25 05:30
Acetaminophen [Tylenol] 650 mg PO Q4HPRN PRN
Albuterol Nebs [Ventolin Nebules] 2.5 mg INH R Q4HPRN PRN
09/03/25 05:30
Echo 2D MMode Doppler [Echo 2D MMode Color/Doppler] Routine
Reason for Study: SOB
Activity As Directed
Activity Level: Ambulate
With Assistance
Bladder Scan As Directed
Follow Bladder Retention/Intermittent Cath Algorithm?: Yes
PRN if no void in __ hours: 6
Frequency: Per Retention Algorithm
If Bladder Scan Result >: 400
then:: Straight cath
EKG with chest pain [ECG as needed] As Directed
ECG as needed for:: Chest Pain
I/O [Intake/ Output] As Directed
Frequency: Per unit guidelines
Straight Cath As Directed
Frequency: Per Retention Algorithm
Additional Instructions: straight cath as needed per acute urinary retention algorithm for 24 hrs
Additional Instructions: for bladder scan greater than 400 mL
Vital Signs As Directed
Frequency: Per unit guidelines
Weight As Directed
Frequency: Daily
Oxygen Therapy [O2 Therapy] [RESP] Routine
Titrate/Wean O2 to maintain O2 sat greater than (%): 94
Ot Eval And Treat Routine
PT Consult [Pt Eval And Treat] Routine
Activity Level: Ambulate
With Assistance
DX Deep Vein Thrombosis Video Routine
09/03/25 06:00
EKG [Electrocardiogram (*1)] IN AM
Reason for Study: Chest Pain
Regular
At Your Request: Full Participation
Does patient need a safe tray?: No
Levothyroxine [Synthroid] 88 mcg PO DAILY @ 0600
09/03/25 06:06
Basic Metabolic Panel IN AM
Complete Blood Count/No Diff IN AM
Troponin I Q6H
09/03/25 08:00
Aripiprazole [Abilify] 10 mg PO DAILY
Aspirin Chewable [Low Strength Aspirin] 81 mg PO DAILY
Atorvastatin [Lipitor] 20 mg PO DAILY
Budesonide [Pulmicort] 0.5 mg INH R BID
Bupropion(24Hr)Extended Releas [WELLBUTRIN XL (24 hour extended release)] 150 mg PO DAILY
Bupropion(24Hr)Extended Releas [WELLBUTRIN XL (24 hour extended release)] 300 mg PO DAILY
Carvedilol [Coreg] 3.125 mg PO BID
Fluoxetine HCl [Prozac] 40 mg PO DAILY
Ipratropium/Albuterol Sulfate [Duoneb] 3 ml INH R QID
Magnesium Oxide 400 mg PO DAILY
Prednisone [Deltasone] 15 mg PO DAILY
Sulfasalazine [Azulfidine] 1,000 mg PO BID
09/03/25 12:19
Troponin I Q6H
09/03/25 18:00
Enoxaparin Sodium [Lovenox] 40 mg SC QPM
09/06/25 11:00
DC Protocol for Telemetry ONCE
Abnormal Lab Results
09/02/25
21:24
MCHC 31.8 L g/dL
(33.0-37.0)
RDW 15.6 H %
(11.5-14.5)
Absolute Lymphs (auto) 1.0 L 10^3/uL
(1.2-3.4)
Lymphocytes % 19.2 L %
(20.5-51.1)
Monocytes % 9.8 H %
(1.7-9.3)
BUN 21 H mg/dl
(9-20)
Glucose 124 H mg/dl
(70-99)
09/02/25 21:24
09/02/25 21:24
Vital Signs
Initial and Last Documented VS:
Initial Vital Signs
Temp Pulse Resp BP Pulse Ox
98.4 F 85 20 111/73 93
09/02/25 20:48 09/02/25 20:48 09/02/25 20:48 09/02/25 20:48 09/02/25 20:48
Last Documented Vital Signs
Temp Pulse Resp BP Pulse Ox
98.3 F 78 19 123/91 94
09/03/25 10:58 09/03/25 13:30 09/03/25 13:30 09/03/25 13:00 09/03/25 13:00
<Sowmya Tesfaye MD, Resident - Last Filed: 09/03/25 16:24>
MDM/Problems Addressed
Differential Diagnosis Includes:
PE, COPD exacerbation, CHF exacerbation, metastatic prostate cancer, pneumothorax, Respiratory failure due to CIDP
MDM/Problems Addressed:
EKG is nonischemic, troponin less than 0.012, BNP 329 and chest x-ray unremarkable for acute etiology. COVID and flu swabs for completeness however unlikely to be infectious in etiology as afebrile and no productive cough or other upper respiratory
tract infection symptoms. Will do CTA to rule out PE.
Chronic conditions affecting care: Cardiomyopathy, COPD and Other (CIDP)
<Sowmya Tesfaye MD, Resident - Last Filed: 09/03/25 16:24>
*Pulse Oximetry
SaO2: 97
Oxygen Mode of Delivery: Room air
Patient hypoxic: no
*Critical Care Note
Total Time (30-74mins, 75-104mins- exclusive of procedures): Not Applicable
Data Reviewed
Review of Other/Old Records Reveals: Labs (BNP 07/12/19 was 427) and Radiology Studies (Head CT 06/30/2025 revealed no acute intracranial abnormalities, echocardiogram 04/03/2025 revealed EF 50 to 55%)
Source: patient
<Shree Gonzalez DO - Last Filed: 09/03/25 02:00>
*Radiology
Radiology exam reviewed: radiology read reviewed (Right lower lobe pneumonia)
*Critical Care Note
Total Time (30-74mins, 75-104mins- exclusive of procedures): Not Applicable
<Shree Gonzalez DO - Last Filed: 09/03/25 02:00>
Update Note
Update Note:
NAME: AGUSTINA SINGLETON
DATE OF EXAM: 09/03/2025
Patient No: [id number]
Physician: BETH
Date of : 1950
Past Medical History (entered by Technologist):
Reason For Exam (entered by Technologist):
Other Notes (entered by Technologist): Pt has increased SOB just sitting for the last 2 days. No fever. Pt unable to ambulate a few feet
Prior sent
Additional Information (per [facility]):
CT PULMONARY ANGIOGRAM:
IMPRESSION
Compared to 10/04/2024
The study is technically diagnostic . No evidence of pulmonary embolism.
Images of the aorta are without evidence of aneurysm. .
Ground glass opacity in the right middle lobe please correlate for clinical pneumonia. Mild bibasilar atelectasis. Probable left renal cyst.
Mild distal esophagitis with mild adjacent edema.
Old bilateral rib fractures
Case finalized on 09/03/25 01:00 EST
Kelley Menendez M.D.
This report has been electronically signed and verified by the Radiologist whose name is printed above.
ED Attending Note
<Sowmya Tesfaye MD, Resident - Last Filed: 09/03/25 16:24>
-
Portions of this chart may have been created with voice recognition software.� Occasional wrong word or��sound alike� substitutions may have occurred due to the inherent limitations of voice recognition software.
<Shree Gonzalez DO - Last Filed: 09/03/25 02:00>
ED Attending Note
Patient seen and examined by attending physician: Yes
I performed a history and physical exam of patient and discussed management with resident, I reviewed resident's note and agree with documented findings and plan of care.: Yes
ED Attending Note:
Note:
CHIEF COMPLAINT(S)
Shortness of breath.
HISTORY OF PRESENT ILLNESS
The patient is a 74-year-old male presenting with shortness of breath. He has a history of a previous blood clot, although he is unable to determine if his current symptoms mirror previous experiences with thrombosis. The symptom onset is not
clearly detailed in the conversation. The patient does not report any associated chest pain. A CT scan of the chest is planned to evaluate the possibility of another thromboembolic event.
PHYSICAL EXAM
General: Alert, moderate acute distress. Hacking cough
Skin: Warm, dry.
Head: Normocephalic, atraumatic.
Neck: Supple, trachea midline.
Eye, Ears, Nose, Mouth, and Throat: Oral mucosa moist.
Cardiovascular: Normal peripheral perfusion, no edema.
Respiratory: Respirations are non-labored. On oxygen.
Gastrointestinal: Abdomen nondistended.
Back: Normal range of motion, normal alignment.
Musculoskeletal: Normal range of motion, normal strength.
Neurological: Alert and oriented to person, place, time, and situation, no focal neurological deficit observed.
Psychiatric: Cooperative, appropriate mood and affect.
PLAN
A chest CT scan will be performed to rule out the presence of a new blood clot.
DIFFERENTIAL DIAGNOSIS
The Differential Diagnosis includes, in no particular order and is not limited to:
- Pulmonary embolism�not seen on CAT scan
- Congestive heart failure
- Chronic obstructive pulmonary disease exacerbation
- Pneumonia
- Acute coronary syndrome
- Asthma exacerbation
- Anxiety-related hyperventilation
- Pneumothorax
- Interstitial lung disease
- Allergic reaction
Disposition:
SUMMARY OF ENCOUNTER
The patient was seen in the emergency department for evaluation of shortness of breath. This individual, aged 74, has a history of a previous blood clot and presented without chest pain. The primary concern was whether a new thromboembolic event was
occurring. To evaluate further, a CT scan of the chest was ordered to assess for pulmonary embolism or other conditions such as pneumonia.
DISPOSITION
The patient has been admitted to the hospital for further management.
ASSESSMENT
The differential diagnosis includes pulmonary embolism, pneumonia, congestive heart failure, chronic obstructive pulmonary disease exacerbation, acute coronary syndrome, asthma exacerbation, anxiety-related hyperventilation, pneumothorax,
interstitial lung disease, and allergic reaction.
PLAN
Proceed with a chest CT scan to rule out a new blood clot and assess for signs of pneumonia or other potential conditions.
MEDICATION RECONCILIATION
The patient will be started on antibiotics following the admission, specific medications to be determined by the admitting service.
MEDICAL DECISION MAKING
-Complexity of Data Reviewed: Chronic conditions affecting care include a history of previous blood clot. The differential diagnosis list includes pulmonary embolism, pneumonia, congestive heart failure, chronic obstructive pulmonary disease
exacerbation, acute coronary syndrome, asthma exacerbation, anxiety-related hyperventilation, pneumothorax, interstitial lung disease, and allergic reaction.
-Data:
Category 1
No specific labs reviewed were mentioned in this encounter.
Category 3
Management discussed with hospital service for admission due to suspected pneumonia and shortness of breath.
-Risk:
Due to susceptibility to a thromboembolic event and potential pneumonia, the risk is deemed significant enough to warrant hospital admission.
DIAGNOSIS
Pneumonia (ICD-10 Code: J18.9)
Potential Pulmonary Embolism (ICD-10 Code: I26.99)
The patient was transferred to inpatient care for further evaluation and treatment.
Discharge Plan
Departure
Patient Disposition: Admit
Date of Disposition: 09/03/25
Time of Disposition: 01:57
Admit to: Telemetry
Presentation/result/management discussed w/ accepting MD/DO: Hospitalist
Condition: Fair
Discharge Problem:
Exertional dyspnea, Pneumonia
Interventions
Interventions:
*Risk Screen - Suicide Last Done: 09/02/25 20:48
*General Assessment Last Done: 09/02/25 20:48
*Neglect/Abuse Screening Last Done: 09/02/25 20:48
*ED- Fall Risk Assessment Last Done: 09/03/25 10:57
*ED COVID-19 Vaccine History Last Done: 09/02/25 20:48
*ED Influenza Vaccine History Last Done: 09/02/25 20:48
*Nursing Disposition Last Done: 09/03/25 13:55
ED- Cardiac Assessment Last Done: 09/03/25 10:53
ED- Pulmonary Assessment Last Done: 09/03/25 10:53
Discharge Date and Time
Discharge Date/Time: 09/03/25 13:55
[2025-09-02 23:43] LABS: COVID-19 Antigen Negative (Negative)
[2025-09-03] VITALS (17 sets, daily range): BP systolic 98–156; BP diastolic 64–107; PULSE 73; O2SAT 94
[2025-09-03] MEDS: ROCEPHIN 2000 MG IV (02:10)
[2025-09-03] MEDS: ZITHROMAX INFUSION 250 IV (02:16)
--- NOTE | 2025-09-03 03:19 | HPS.HSE ---
Family Physician
-
Family Physician: Josee Barnett
Chief Complaint
-
SOB
History of Present Illness
Patient is a 74y M with PMH significant for A-Fib, ASCVD, prostate cancer and CIDP who presents to ED complaining of SOB. Patient states that he has been feeling progressively SOB over the past 2-4 days. No chest pain or palpitations. Mild,
non-productive cough. No fevers / chills. No GI or symptoms. No sick contacts in the home. Patient is quite sedentary at baseline and does have prior h/o PE. He has COPD and was started on a new inhaler about a month or so ago. No other
recent med changes. With continued dyspnea x several days, patient's family convince him to present to the ED this evening for evaluation.
Medical History
Past Medical History
Past Medical History: Reports Other
Additional Past Medical History:
ASCVD
Paroxysmal Atrial Fibrillation
CIDP
Prostate Cancer
Hypothyroidism
Anxiety / Depression
COPD
Hep C
Crohn's Disease
Past Surgical History: Reports Other
Additional Past Surgical History:
Vocal Cord Repair
Prostatectomy
Appendectomy
Social History
Tobacco: Former Smoker (Quit smoking in 1989.)
Alcohol: None
Drug: None
Living: With Family
Family History
Family History: Not pertinent
Allergies / Home Medications
Allergies reflects when Allergies were last updated in [facility].
Home Medications with original date entered in [facility]
Allergy/Medication List:
Allergies
Allergy/AdvReac Type Severity Reaction Status Date / Time
No Known Allergies Allergy Verified 09/02/25 20:48
Home Medications
atorvastatin 20 mg tablet 20 mg PO DAILY High Cholesterol ##0 02/05/20
fluoxetine 40 mg capsule 40 mg PO DAILY Mental Health/Anxiety 09/24/21
levothyroxine 88 mcg tablet 88 mcg PO DAILY Thyroid 09/24/21
sulfasalazine 500 mg tablet 1,000 mg PO BID Gastrointestinal Issue 09/24/21
alendronate 70 mg tablet 70 mg PO DIALLO OSTEOPOROSIS 06/20/24
aripiprazole 10 mg tablet 10 mg PO DAILY Mental Health/Anxiety 06/20/24
bupropion HCl 300 mg 24 hr tablet, extended release 300 mg PO DAILY Mental Health/Anxiety 06/20/24
calcium 315 mg (as citrate)-vitamin D3 6.25 mcg (250 unit) tablet (Citracal + Vitamin D Maximum) 1 tab PO DAILY Supplement 06/20/24
carvedilol 3.125 mg tablet 3.125 mg PO BID Heart Disease/Condition 06/20/24
magnesium oxide 400 mg (241.3 mg magnesium) tablet 400 mg PO DAILY Electrolyte Repletion 06/20/24
prednisone 10 mg tablet 15 mg PO DAILY Gastrointestinal Issue 06/20/24
aspirin 81 mg chewable tablet 81 mg PO DAILY 07/11/24
bupropion HCl 150 mg 24 hr tablet, extended release 150 mg PO DAILY 09/03/25
fluticasone fur. 100 mcg-umeclid 62.5 mcg-vilant 25 mcg inhalat.powder (Trelegy Ellipta) 1 inh inhalation DAILY 09/03/25
Review of Systems
-
History Source: Patient and Family
A 12 point ROS was completed and negative except as noted: Yes
Constitutional: Reports Fatigue; Denies Fever or Chills
EENT: Denies Sore Throat
Respiratory: Reports Cough and Trouble Breathing; Denies Hemoptysis
Cardiac: Denies Chest Pain or Palpitations
Abdomen/GI: Denies Abdominal Pain, Nausea, Vomiting or Diarrhea
: Denies Dysuria, Frequency or Flank Pain
Musculoskeletal: Denies Joint Pain or Edema
Neurological: Reports Weakness; Denies Dizzy or Headache
Psych: Denies Depression or Anxiety
Physical Exam
Vital Signs
Vital Signs
Temp Pulse Resp BP Pulse Ox
98.4 F 68 18 130/79 97
09/02/25 20:48 09/03/25 02:30 09/03/25 03:00 09/03/25 02:00 09/03/25 02:30
Physical Exam
General: Other (Frail, chronically ill-appearing 74y M in no acute distress.)
HEENT: Moist mucous membranes, PERRLA and Other (Neck supple. No JVD.)
Respiratory: Clear; No Wheezes, Rales or Rhonchi
Cardiac: S1/S2 and Regular Rhythm; No Murmur
GI: Soft, Non Tender, Non Distended and Normal Bowel Sounds
Musculoskeletal: No Clubbing, No Cyanosis and No Edema
Neuro: AO x 3
Laboratory Results
-
09/02/25 21:24
09/02/25 21:24
Laboratory Results
Total Bilirubin 0.4 mg/dl (0.2-1.3) 09/02/25 21:24
AST 50 U/L (17-59) 09/02/25 21:24
ALT 43 U/L (0-50) 09/02/25 21:24
Alkaline Phosphatase 68 U/L (38-126) 09/02/25 21:24
Troponin I < 0.012 ng/ml 09/02/25 21:24
Impression/Plan
-
A/P: Patient is a 74y M with PMH significant for CIDP, COPD, A-Fib and ASCVD who presents to ED complaining of SOB x several days.
Subjective Dyspnea
COPD without Acute Exacerbation / Wheezing
- Observe overnight for further evaluation and treatment.
- Patient is afebrile, no leukocytosis / shift, lung exam is clear.
- CT scan read as RML 'pneumonia' - perhaps some mild mosaic changes but no obvious infiltrate - await formal read. No PE.
- No sick contacts, fevers / chills or other infectious symptoms (besides mild cough).
- Patient is not hypoxemic nor in distress.
- ? viral bronchitis. ? irritation from new (1 month) COPD inhaler (Trelegy).
- Check procal and hold further abx if normal.
- Hold Trelegy acutely. Budesonide, nebs for now.
- Monitor for any new / worsening symptoms, development of fever, hypoxemia, etc.
- Check Echo for additional evaluation.
ASCVD
Paroxysmal Atrial Fibrillation
- Stable. No chest pain / palpitations.
- Echo as noted above to rule out CV source of dyspnea.
- Continue current med regimen.
- Not on OAC due to fall risk?
CIDP
- PT eval during stay.
- Follow-up with outpatient Neurologist as planned.
Prostate Cancer
- s/p prostatectomy. On Lupron.
Crohn's
- Stable. No GI symptoms / complaints.
- Continue prednisone / sulfasalazine.
Hypothyroidism
- Continue T4 supplementation.
Anxiety / Depression
- Continue aripiprazole.
DVT Prophylaxis: Lovenox
Code Status: Full
[2025-09-03 03:38] LABS: Procalcitonin < 0.05 ng/ml (0.0-0.25)
[2025-09-03] MEDS: SYNTHROID 88 MCG PO (06:05)
[2025-09-03 06:25] LABS: Hematocrit 38.4 % (39.0-52.0); Hemoglobin 12.1 g/dL (13.0-18.0); Mean Corp Hgb Conc. 31.5 g/dL (33.0-37.0); Mean Corpuscular Volume 90.6 fL (80.0-94.0); Platelet Count 149 10^3/uL (130-400); Red Cell Dist. Width 15.6 % (11.5-14.5)
[2025-09-03 06:46] LABS: Blood Urea Nitrogen 19 mg/dl (9-20); Calcium 8.5 mg/dl (8.4-10.2); Carbon Dioxide 28 mmol/L (22-30); Chloride 105 mmol/L (98-107); Glucose 88 mg/dl (70-99); Potassium 4.5 mmol/L (3.5-5.1); Sodium 138 mmol/L (135-145); eGFR > 60.00
[2025-09-03 06:55] LABS: Troponin I 0.019 ng/ml
[2025-09-03] MEDS: LIPITOR 20 MG PO (07:36)
[2025-09-03] MEDS: DELTASONE 15 MG PO (07:36)
[2025-09-03] MEDS: WELLBUTRIN XL (24 hour extended release) 300 MG PO (07:37)
[2025-09-03] MEDS: COREG 3.125 MG PO (07:37)
[2025-09-03] MEDS: WELLBUTRIN XL (24 hour extended release) 150 MG PO (07:37)
[2025-09-03] MEDS: LOW STRENGTH ASPIRIN 81 MG PO (07:37)
[2025-09-03] MEDS: MAGNESIUM OXIDE 400 MG PO (07:37)
[2025-09-03] MEDS: AZULFIDINE 1000 MG PO (07:37)
[2025-09-03] MEDS: PROZAC 40 MG PO (07:38)
[2025-09-03] MEDS: ABILIFY 10 MG PO (07:38)
[2025-09-03] MEDS: PULMICORT 0.5 MG INH (08:10)
[2025-09-03] MEDS: DUONEB 3 ML INH ×2 (08:10→12:16)
--- NOTE | 2025-09-03 08:37 | W.PN.HOSP.TC ---
Addendum entered and electronically signed by Billy Wiseman MD 09/03/25 13:48:
Attending�addendum:
I saw and evaluated the patient. I reviewed the resident�s note and agree with findings and plan as documented in the resident�s note.��patient seen and examined at bedside, denies any chest pain or shortness of breath, no abdominal pain, no nausea,
no vomiting, no diarrhea or constipation.
Physical therapy recommending rehab.
Patient and family preferred to go home
Physical�exam:
GENERAL : Patient is awake, alert, oriented x3
HEENT: Nonicteric sclerae, PERRLA, EOMI. Oropharynx clear. Moist mucous membranes. Conjunctivae appear well perfused.
CHEST: Chest wall is nontender.
HEART: Regular rate and rhythm without murmurs.
LUNGS: Clear to auscultation bilaterally.
ABDOMEN: Soft, positive bowel sounds, nontender, no organomegaly.
RECTAL: Deferred.
MUSCLES/EXTREMITIES: No abnormal range of motion, no swelling.SKIN: No rash, no excessive bruising, petechiae, or purpura.
NEUROLOGIC: Cranial nerves II-XII intact without motor/sensory deficit.
�
Assessment/plan:
Early pneumonia.
Patient presented with shortness of breath and coughing.
CT head shows possible early pneumonia.
Will be discharged on 5 days of doxycycline
Ambulatory dysfunction/CIPD
Physical therapy recommending rehab but patient wants to go home
CODE STATUS: Full code
DVT prophylaxis: Lovenox
Diet: Regular diet
Family communication: Discussed with at bedside
Disposition: Discharge home
�
Total time spent on today�s encounter was 51 minutes which included time spent in counseling the patient/family regarding diagnosis and treatment plan as listed above, goals of care, and symptom management. Case was discussed with nursing staff,
specialists, and care coordinators/case management. All labs and imaging personally reviewed by me. Remainder the time spent in detailed review of previous records, lab data, imaging, and other medical provider documentation.
Original Note:
Today's Communication/Plan
-
Discharge home on Doxycycline. Outpatient PT per family request.
Assessment / Plan
Assessment / Plan
Jase Arroyo is a 74M w/ PMHx of COPD, HFpEF, atrial fibrillation, prostate CA, chronic idiopathic demyelinating polyneuropathy, and prior hx of provoked PE due to prolonged immobilization in the setting of CIDP. Presented to ED for progressive SOB
with exertion over 3 days. No SOB at rest. Also has had dry cough. ED Course mostly unremarkable, save possible beginning of pneumonia on CT Chest. Otherwise AFVSS, normal labs, negative procal. Patient admitted under observation.
1. Dyspnea on Exertion
- DDx includes mild COPD exacerbation, CHF exacerbation, cardiomyopathy, acute bronchitis, pneumonia
- Admitted as observation, feeling better overnight
- Patient is afebrile, no leukocytosis / shift, lung exam is clear.
- CXR (09/03): Hyperinflated lungs, no other abnormalities
- CT chest (09/03): No evidence of PE, no evidence of dissection, possible early pneumonia or subsegmental atelectasis
- No sick contacts, fevers / chills or other infectious symptoms (besides mild cough), procal negative
- Previous ECHO in 04/2025
2. Paroxysmal Atrial Fibrillation
- Stable. No chest pain / palpitations.
- Echo as noted above to rule out CV source of dyspnea.
- Continue current med regimen.
- Not on OAC due to fall risk.
3. CIDP
- PT recommending SNF due to ambulatory dysfunction
- Family declines and would like to continue with their outpatient PT, and discharge to home.
- Follow-up with outpatient Neurologist as planned.
4. Prostate Cancer
- s/p prostatectomy. On Lupron.
5. Crohn's
- Stable. No GI symptoms / complaints.
- Continue prednisone / sulfasalazine.
6. Hypothyroidism
- Continue T4 supplementation.
7. Anxiety / Depression
- Continue aripiprazole.
Anticipated Discharge: Today
Subjective/Interval History
-
Date of Service: September 03, 2025
Jase Arroyo is a 74M w/ PMHx of COPD, HFpEF, atrial fibrillation, prostate CA, chronic idiopathic demyelinating polyneuropathy, and prior hx of provoked PE due to prolonged immobilization in the setting of CIDP. Presented to ED for progressive SOB
with exertion over 3 days. No SOB at rest. Also has had dry cough. ED Course mostly unremarkable, save possible beginning of pneumonia on CT Chest. Otherwise AFVSS, normal labs, negative procal.
Patient seen and examined, is still in ED bay. Patient states that he is feeling well since last night, with no shortness of breath at rest, but endorses that his symptoms mainly are brought on while moving to the bathroom or to the chair. Otherwise
denies any other acute complaints.
Objective Data
-
Labs:
Laboratory Results
09/02/25 09/03/25
21:24 06:06
WBC 5.1 3.9 L
Hgb 14.2 12.1 L
Hct 44.6 38.4 L
Plt Count 180 149
Sodium 135 138
Potassium 4.3 4.5
Chloride 102 105
Carbon Dioxide 25 28
BUN 21 H 19
Creatinine 0.9 0.9
Glucose 124 H 88
Calcium 9.7 8.5
Total Bilirubin 0.4
AST 50
ALT 43
Alkaline Phosphatase 68
Vital Signs:
Vital Signs
Temp Pulse Resp BP Pulse Ox
98.4 F 71 16 130/82 94
09/03/25 07:34 09/03/25 08:17 09/03/25 08:17 09/03/25 07:34 09/03/25 08:17
Review of Systems
-
History Source: Patient
All other systems: Reviewed and negative
Physical Exam
-
General: No Apparent Distress and Comfortable
HEENT: Normocephalic and Atraumatic
Respiratory: Clear to Auscultation and Non Labored Respirations
Cardiac: Regular Rhythm and S1/S2
GI: Soft and Nontender
Musculoskeletal: No Clubbing, No Cyanosis and No Edema
Skin: Warm and Dry
Neuro: Awake, Alert and Oriented
Psych: Calm
Data Reviewed
-
Diagnostic Radiology: Image personally visualized and interpreted, Report Reviewed by me and Discussed with Patient
CT Scan: Image personally visualized and interpreted, Report Reviewed by me and Discussed with Patient
Labs: Labs Reviewed by me and Discussed with Patient
--- NOTE | 2025-09-03 09:17 | EDRN ---
Pt served breakfast at this time and sitting in chair, was seen by PT and OT who said he needs mod assist of 2 to move as he leans back
--- NOTE | 2025-09-03 09:39 | EDRN ---
PT found a pill in pt's stretcher, sent to pharmacy to be ID'd and will get back to me.
--- NOTE | 2025-09-03 09:58 | EDRN ---
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
--- NOTE | 2025-09-03 10:07 | EDRN ---
Pt ambulated w/ 2 to BR. Pt not steady on feet and does not use walker well. Need assist moderate of 2. Pt had to have BM.
--- NOTE | 2025-09-03 10:19 | EDRN ---
Pt was ambulated from BR to bed and is back on stretcher w/max assist of 2. Pt is very unsteady and does not always use walker appropriately, almost fell twice going to BR and leaving BR>
--- NOTE | 2025-09-03 10:20 | EDCM ---
Addendum entered by Ashley Marshall 09/03/25 12:45:
I met with pt and his , daughter Cheri was on speaker phone. Family does not want him to go to [facility], they were not happy with his last rehab stay. Pt goes to [facility] for outpatient rehab and they will continue that. Dr Hernandez updated.
Addendum entered by Ashley Marshall 09/03/25 11:40:
Spoke to Amaris at [facility], pt does qualify for [facility] waiver. Provider noted and PT note faxed to [phone]. Added referrals to [facility] and [facility]. Reach out to [facility] tomorrow with accepting facilities.
Addendum entered by Ashley Marshall 09/03/25 10:38:
Left voicemail for [facility] [phone] requesting a call back to see if pt qualifies for waiver services. Awaiting a call back.
Original Note:
CM reviewed chart and met with pt bedside in ED. Lives with his in split level home, [address], has full bath and bedroom on first level.
Needs assistance with ADLs, personal care and ambulation. Uses rolling walker.
Seen by PT, recommending [facility]. Pt has been to [facility] in past and agreeable to referral, will also send to [facility].
Pt receives Gamunex infusions at home every 3 weeks for CIDP, [facility], thinks he is due for infusion next week.
TIP reviewed and signed, discussed possibility of private pay for [facility], pt is agreeable.
PCP: Josee Barnett
Pharmacy: [facility]
Anticipate discharge to SNF for STR, CM will continue to follow.
--- NOTE | 2025-09-03 10:58 | EDRN ---
Pt ate 100% of his breakfast and had large formed BM in BR.
--- NOTE | 2025-09-03 11:55 | EDRN ---
Pt ordered lunch. Pt visiting w/ family member at this time.
--- NOTE | 2025-09-03 12:25 | EDRN ---
Respiratory in and pt getting his neb treatment at this time.
--- NOTE | 2025-09-03 12:28 | EDRN ---
This RN contacted Dr. Wiseman who is caring for pt via TT and called and spoke wAllyn Ramirez, social work case manager.
--- NOTE | 2025-09-03 12:34 | EDRN ---
Ashley Fitter Placer in room w/ pt at this time.
--- NOTE | 2025-09-03 13:23 | EDRN ---
Pt discharged at this time.
[2025-09-03 13:52] LABS: Troponin I < 0.012 ng/ml
--- NOTE | 2025-09-04 16:32 | W.DCSUMMARY ---
Addendum entered and electronically signed by Billy Wiseman MD 09/05/25 08:37:
Attending�addendum:
I saw and evaluated the patient. I reviewed the resident�s note and agree with findings and plan as documented in the resident�s note.��patient seen and examined at bedside, denies any chest pain or shortness of breath, no abdominal pain, no nausea,
no vomiting, no diarrhea or constipation.
Physical therapy recommending rehab.
Patient and family preferred to go home
Physical�exam:
GENERAL : Patient is awake, alert, oriented x3
HEENT: Nonicteric sclerae, PERRLA, EOMI. Oropharynx clear. Moist mucous membranes. Conjunctivae appear well perfused.
CHEST: Chest wall is nontender.
HEART: Regular rate and rhythm without murmurs.
LUNGS: Clear to auscultation bilaterally.
ABDOMEN: Soft, positive bowel sounds, nontender, no organomegaly.
RECTAL: Deferred.
MUSCLES/EXTREMITIES: No abnormal range of motion, no swelling.SKIN: No rash, no excessive bruising, petechiae, or purpura.
NEUROLOGIC: Cranial nerves II-XII intact without motor/sensory deficit.
�
Assessment/plan:
Early pneumonia.
Patient presented with shortness of breath and coughing.
CT head shows possible early pneumonia.
Will be discharged on 5 days of doxycycline
Ambulatory dysfunction/CIPD
Physical therapy recommending rehab but patient wants to go home
CODE STATUS: Full code
DVT prophylaxis: Lovenox
Diet: Regular diet
Family communication: Discussed with at bedside
Disposition: Discharge home
Total time spent on today's encounter was 40 minutes which included time spent in counseling the patient/family regarding diagnosis and treatment plan as listed above, goals of care, and symptom management. Case was discussed with nursing staff,
specialists, and care coordinators/case management. All labs and imaging personally reviewed by me. Remainder the time spent in detailed review of previous records, lab data, imaging, and other medical provider documentation.
Original Note:
Documented by User: Gee Hernandez DO, Resident 09/04/25 16:53
Discharge Summary
Discharge Data
Date of Admission: 09/03/25
Date of Discharge: 09/03/25
Total time spent discharging patient (in min): 31
-
Pending Results: No
Hospital Course
Jase Arroyo is a 74-year-old male with a past medical history of chronic obstructive pulmonary disease, heart failure with preserved ejection fraction, atrial fibrillation, prostate cancer, chronic inflammatory demyelinating polyneuropathy, prior
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
HISTORY OF PRESENT ILLNESS
Patient states that he was having shortness of breath with exertion, particularly when walking to and and from the bathroom at home (patient is otherwise quite sedentary at baseline). Family endorse that the patient was not having any shortness of
breath while sitting in [address] Concomitant to this was a cough over the 3 days prior to arrival. Patient otherwise denied fevers, chills, upper respiratory tract infection symptoms, weight gain, peripheral extremity swelling, wheezing, or
pleurisy.
ED COURSE
On presentation to the emergency department, patient was nontoxic-appearing and exhibited decreased breath sounds in all [place]. Examination was otherwise benign. EKG and troponins were negative, BNP was 329. Chest x-ray was unremarkable for
acute etiology. CTA was done to rule out PE. CT of the chest did not show however a possible consolidation in the right middle lobe that was suspicious for possible beginning of pneumonia versus subsegmental atelectasis. The patient was admitted
for observation.
HOSPITAL COURSE
Patient was started on budesonide nebulizers for breathing treatment. Under observation, the patient's trouble breathing improved within hours and workup remained largely negative outside of the questionable CT Chest finding. The patient was
discharged home with 5 days of doxycycline for acute bronchitis vs. possible developing pneumonia. The patient was seen by physical therapy who recommended rehab, however the patient and his family wanted him to go home. The patient was discharged
on 09/03/2025 to home with follow up with his primary care provider.
DISCHARGE RECOMMENDATIONS
Patient was prescribed Doxycycline 100mg orally, twice a day for 5 days.
Follow up with primary care provider in less than 1 week for follow up. Patient may need a follow up chest X-ray in 4 to 6 weeks to ensure resolution.
Outpatient physical therapy is recommended for ambulatory dysfunction in the setting of chronic inflammatory demyelinating polyneuropathy.
Discharge Plan
-
Patient Disposition: Home (Routine Discharge)
Discharge Diagnosis/Procedures: *Acute Bronchitis
*Ambulatory Dysfunction Secondary to Chronic Idiopathic Demyelinating Polyneuropathy
History of COPD
History of Heart Failure with Preserved Ejection Fraction
History of Paroxysmal Atrial Fibrillation
History of Prostate Cancer
History of Crohn's Disease
History of Hypothyroidism
History of Mood Disorder
Condition: Fair
Diet: Regular
Activity: With assistance
Other Services: PT
Referrals:
Josee Barnett MD [Family Provider, Family Practice] - in less than 1 week
Prescriptions:
New
doxycycline monohydrate 100 mg capsule
100 mg PO BID 5 Days Qty: 10 0RF
Continued
atorvastatin 20 MG tablet
20 mg PO DAILY Qty: 0
levothyroxine 88 MCG tablet
88 mcg PO DAILY
fluoxetine 40 MG capsule
40 mg PO DAILY
sulfasalazine 500 MG tablet
1,000 mg PO BID
prednisone 10 mg Tablet
15 mg PO DAILY
alendronate 70 mg Tablet
70 mg PO DIALLO
carvedilol 3.125 mg Tablet
3.125 mg PO BID
magnesium oxide 400 mg (241.3 mg magnesium) Tablet
400 mg PO DAILY
aripiprazole 10 mg Tablet
10 mg PO DAILY
bupropion HCl 300 mg Tablet Extended Release 24 Hr
300 mg PO DAILY
calcium citrate-vitamin D3 [Citracal + D Maximum] 315 mg-6.25 mcg (250 unit) Tablet
1 tab PO DAILY
aspirin 81 mg Tablet,Chewable
81 mg PO DAILY
Patient Comments:
Restarted 07/07/2024
bupropion HCl 150 mg Tablet Extended Release 24 Hr
150 mg PO DAILY
Trelegy Ellipta 100-62.5-25 mcg Blister With Device
1 inh INHALATION DAILY
Discharge Orders:
Discharge Patient (As Directed); Ordered 09/03/25
Ordered By: Gee Hernandez
Discharge Date and Time
Discharge Date/Time: 09/03/25 13:55
Print Language: NIGERIEN

Documented by User: Billy Wiseman MD 09/05/25 08:36
Discharge Summary
Discharge Data
Date of Admission: 09/03/25
Date of Discharge: 09/05/25
Discharge Plan
-
Patient Disposition: Home (Routine Discharge)
Discharge Diagnosis/Procedures: *Acute Bronchitis
*Ambulatory Dysfunction Secondary to Chronic Idiopathic Demyelinating Polyneuropathy
History of COPD
History of Heart Failure with Preserved Ejection Fraction
History of Paroxysmal Atrial Fibrillation
History of Prostate Cancer
History of Crohn's Disease
History of Hypothyroidism
History of Mood Disorder
Condition: Fair
Diet: Regular
Activity: With assistance
Other Services: PT
Referrals:
Josee Barnett MD [Family Provider, [facility]] - in less than 1 week
Prescriptions:
New
doxycycline monohydrate 100 mg capsule
100 mg PO BID 5 Days Qty: 10 0RF
Continued
atorvastatin 20 MG tablet
20 mg PO DAILY Qty: 0
levothyroxine 88 MCG tablet
88 mcg PO DAILY
fluoxetine 40 MG capsule
40 mg PO DAILY
sulfasalazine 500 MG tablet
1,000 mg PO BID
prednisone 10 mg Tablet
15 mg PO DAILY
alendronate 70 mg Tablet
70 mg PO DIALLO
carvedilol 3.125 mg Tablet
3.125 mg PO BID
magnesium oxide 400 mg (241.3 mg magnesium) Tablet
400 mg PO DAILY
aripiprazole 10 mg Tablet
10 mg PO DAILY
bupropion HCl 300 mg Tablet Extended Release 24 Hr
300 mg PO DAILY
calcium citrate-vitamin D3 [Citracal + D Maximum] 315 mg-6.25 mcg (250 unit) Tablet
1 tab PO DAILY
aspirin 81 mg Tablet,Chewable
81 mg PO DAILY
Patient Comments:
Restarted 07/07/2024
bupropion HCl 150 mg Tablet Extended Release 24 Hr
150 mg PO DAILY
Trelegy Ellipta 100-62.5-25 mcg Blister With Device
1 inh INHALATION DAILY
Discharge Orders:
Discharge Patient (As Directed); Ordered 09/03/25
Ordered By: Gee Hernandez
Discharge Date and Time
Discharge Date/Time: 09/03/25 13:55
Print Language: NIGERIEN
== END 2025-09-03 13:55 | disposition home or self-care (01) ==
LOC: ED 03:27
PROVIDERS: Emergency Medicine; ADMITTING PHYSICIAN Hospitalist; ATTENDING PHYSICIAN General Practice; EMERGENCY PHYSICIAN Student in an Organized Health Care Education/Training Program; FAMILY PHYSICIAN Family Medicine
DX: J20.9 Acute bronchitis, unspecified (principal); R06.02 Shortness of breath; R06.09 Other forms of dyspnea; J44.0 Chronic obstructive pulmonary disease with (acute) lower respiratory infection; G61.81 Chronic inflammatory demyelinating polyneuritis; J98.11 Atelectasis; J18.9 Pneumonia, unspecified organism; I49.1 Atrial premature depolarization; I49.8 Other specified cardiac arrhythmias; R05.9 Cough, unspecified; R26.2 Difficulty in walking, not elsewhere classified; I48.0 Paroxysmal atrial fibrillation; I50.32 Chronic diastolic (congestive) heart failure; F41.9 Anxiety disorder, unspecified; K50.90 Crohn's disease, unspecified, without complications; I25.10 Atherosclerotic heart disease of native coronary artery without angina pectoris; F32.A Depression, unspecified; E78.00 Pure hypercholesterolemia, unspecified; R06.03 Acute respiratory distress; K20.90 Esophagitis, unspecified without bleeding; E03.9 Hypothyroidism, unspecified; I42.8 Other cardiomyopathies; K44.9 Diaphragmatic hernia without obstruction or gangrene; I25.2 Old myocardial infarction; Z90.49 Acquired absence of other specified parts of digestive tract; Z85.46 Personal history of malignant neoplasm of prostate; Z86.711 Personal history of pulmonary embolism; Z90.79 Acquired absence of other genital organ(s); Z92.3 Personal history of irradiation; Z86.19 Personal history of other infectious and parasitic diseases; Z87.891 Personal history of nicotine dependence; Z79.82 Long term (current) use of aspirin; Z79.52 Long term (current) use of systemic steroids; Z79.899 Other long term (current) drug therapy; Z91.81 History of falling; Z79.818 Long term (current) use of other agents affecting estrogen receptors and estrogen levels; Z95.1 Presence of aortocoronary bypass graft; Z11.52 Encounter for screening for COVID-19
CPT/HCPCS: 71046; 71275; 80048; 80053; 83880; 84145; 84484; 85025; 85027; 87040; 87502; 87811; 93005; 94640; 96374; 96375; 99285; G0378; Q9967

== ENCOUNTER → 2025-10-19 11:47 | Outpatient (REF) | payer MEDICARE, OTHER, SELFPAY | LOC: RAD 11:47 | PROVIDERS: ATTENDING PHYSICIAN Internal Medicine; FAMILY PHYSICIAN Family Medicine | DX: M25.512 Pain in left shoulder (principal); J18.9 Pneumonia, unspecified organism | CPT/HCPCS: 71046; 73030 ==